=== PATIENT | female | born 1935 | race Caucasian/White ===

== ENCOUNTER 2020-08-27 09:20 | Outpatient (REF) | payer MEDICARE, OTHER, SELFPAY ==
[2020-08-27 11:56] LABS: Estimated Average Glucose 197 mg/dL; Hemoglobin A1c % 8.5 %
[2020-08-27 12:00] LABS: Alanine Aminotransferase 20 U/L (0-31); Anion Gap 15 (12-20); Aspartate Amino Transferase 19 U/L (5-31); Blood Urea Nitrogen 25 mg/dL (9-16); Calcium 9.3 mg/dL (8.4-10.2); Carbon Dioxide 25 mmol/L (22-29); Chloride 99 mmol/L (96-108); Cholesterol 183 mg/dL; Estimated Glomerular Filt Rate 39; Glucose Fasting 239 mg/dL (60-99); HDL Cholesterol 51 mg/dL; LDL Cholesterol Calculated 106 mg/dl; Sodium 134 mmol/L (135-145); Triglycerides 134 mg/dL
== END 2020-08-27 09:21 | disposition home or self-care (01) ==
LOC: HO.HMGCLDS 09:20
PROVIDERS: PCP Internal Medicine; Referring Provider Physician Assistant; Visit Provider Internal Medicine
DX: E78.5 Hyperlipidemia, unspecified (principal); I10 Essential (primary) hypertension; E11.40 Type 2 diabetes mellitus with diabetic neuropathy, unspecified
CPT/HCPCS: 36415; 80048; 80061; 83036; 84450; 84460

== ENCOUNTER 2021-03-12 08:24 | Outpatient (REF) | payer MEDICARE, OTHER, SELFPAY ==
[2021-03-12 11:49] LABS: Estimated Average Glucose 200 mg/dL; Hemoglobin A1c % 8.6 %
[2021-03-12 12:29] LABS: Alanine Aminotransferase 16 U/L (0-31); Anion Gap 21 (12-20); Aspartate Amino Transferase 18 U/L (5-31); Blood Urea Nitrogen 28 mg/dL (9-16); Carbon Dioxide 19 mmol/L (22-29); Chloride 102 mmol/L (96-108); Cholesterol 202 mg/dL; Estimated Glomerular Filt Rate 50; Glucose Fasting 150 mg/dL (60-99); HDL Cholesterol 52 mg/dL; LDL Cholesterol Calculated 114 mg/dl; Potassium 5.3 mmol/L (3.3-5.1); Sodium 137 mmol/L (135-145); Triglycerides 181 mg/dL
[2021-03-12 12:36] LABS: Creatinine Urine 27.31 mg/dL; Microalbum/Creatinine Ratio Ur 494.3 ug/mg cr
[2021-03-12 12:42] LABS: Vitamin D 25-OH Total 24.3 ng/mL (>30)
== END 2021-03-12 08:25 | disposition home or self-care (01) ==
LOC: HO.HMGCLDS 08:24
PROVIDERS: PCP Internal Medicine; Visit Provider Physician Assistant
DX: E11.42 Type 2 diabetes mellitus with diabetic polyneuropathy (principal); E11.40 Type 2 diabetes mellitus with diabetic neuropathy, unspecified; E78.5 Hyperlipidemia, unspecified; I10 Essential (primary) hypertension; E89.40 Asymptomatic postprocedural ovarian failure
CPT/HCPCS: 36415; 80048; 80061; 82043; 82306; 83036; 84450; 84460

== ENCOUNTER 2021-09-05 22:15 | Inpatient (IN) | payer MEDICARE, OTHER, SELFPAY ==
--- NOTE | ~2021-09-05 | CT_ITS ---
EXAMINATION: CT HEAD WITHOUT CONTRAST (STROKE PROTOCOL) CLINICAL INFORMATION: Stroke protocol. Inpatient. Uncontrolled hypertension, dizziness, nausea, vomiting. COMPARISON: None TECHNIQUE: Contiguous axial imaging was performed from the skull base to vertex without intravenous administration of contrast. This CT examination was performed using dose optimization techniques as appropriate, variously including the following: *Automated exposure control *Adjustment of mA and/or kV according to patient size (this includes techniques or standardized protocols for targeted exams where dose is matched to indication/reason for exam; i.e. extremities or head) *Use of iterative reconstruction technique DLP: 653 mGy-cm FINDINGS: There is no intracranial hemorrhage, hematoma, or extra-axial fluid collection. The ventricles are normal in size. There is no hydrocephalus, edema, or mass effect. There is decreased attenuation inferior left cerebellum which may represent acute infarct. No mass effect on fourth ventricle. There is subtle decreased attenuation posterior limb left internal capsule also suspicious for acute infarct. There is a small infarct possibly old involving the posterior medial left occipital lobe. Old appearing lacunar infarct without mass effect noted right anterior limb basal ganglia. There is some scattered mild periventricular white matter gliosis. No visible mass lesion. No focal dense vessel sign. The calvarium appears intact. There is no pneumocephalus or orbital emphysema. There are no air-fluid levels in the sinuses or middle ears or mastoids. Mucosal thickening present left sphenoid. Results are discussed with Dr. Vail, connection made at 08:[address]/CT head for stroke IMPRESSION: 1. Decreased attenuation inferior left cerebellum and posterior left basal ganglia, possibly acute or subacute infarct. 2. 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 3. No intracranial hemorrhage, hydrocephalus, or midline shift.
--- NOTE | ~2021-09-05 | US_ITS ---
EXAMINATION: US ABDOMEN LIMITED CLINICAL INFORMATION: Cholelithiasis, rule out biliary disease. COMPARISON: CT abdomen and pelvis with contrast dated 09/06/2021. TECHNIQUE: Real-time imaging of the right upper quadrant abdominal viscera. FINDINGS: PANCREAS: The visualized pancreatic head and body are unremarkable. The tail is obscured by overlying bowel gas. LIVER: Mildly enlarged. The right hepatic lobe measures up to 20 cm. The liver contour is normal. There is diffuse increased liver parenchymal echogenicity, consistent with hepatic steatosis. No focal hepatic lesion. There is no intrahepatic biliary duct dilatation seen. GALLBLADDER: Mildly dilated. Cholelithiasis without gallbladder wall thickening or pericholecystic free fluid to suggest acute cholecystitis. COMMON BILE DUCT: Normal in caliber measuring 0.48 cm in diameter. RIGHT KIDNEY: Normal. No hydronephrosis. No renal calculi or focal parenchymal lesions. The kidney measures 9.0 cm in maximum dimension. FREE FLUID: None. US/US abdomen limited IMPRESSION: 1. Mild dilatation of the gallbladder with cholelithiasis. No gallbladder wall thickening or pericholecystic free fluid to suggest acute cholecystitis. 2. Hepatic steatosis and mild hepatomegaly. No focal parenchymal lesion or biliary ductal dilatation.
--- NOTE | ~2021-09-05 | CT_ITS ---
EXAMINATION: CT angio head neck CLINICAL INFORMATION: Stroke. Altered mental status. COMPARISON: Brain MRI 09/04/2021. TECHNIQUE: Testing Engineer images were obtained. A CT angiogram of the head and neck was performed in the arterial phase after the intravenous administration of 70 mL Omnipaque 350. Delayed postcontrast images of the head were also obtained. MIP reconstructions were generated in multiple orientations at the acquisition workstation. Multiple three-dimensional surface rendered images and maximum intensity projection images were generated on a dedicated 3-D lab workstation. Arterial stenoses are measured in accordance with NASCET criteria or similar method if applicable. This CT examination was performed using dose optimization techniques as appropriate, including one or more of the following: Automated exposure control, iterative reconstruction, and adjustment of technique factors (mA and/or kVp) according to patient size (this includes techniques or standardized protocols for targeted exams where dose is matched to indication/reason for exam). Total exam dose-length product 1384 mGy-cm FINDINGS: Head: Delayed postcontrast images reveal no abnormal mass or enhancement within the intracranial compartment. Again there is an acute infarct within the left cerebellar hemisphere and a tiny chronic cortical infarct within the left occipital lobe. Scattered nonspecific foci of hypoattenuation are also visualized within the periventricular white matter that most likely represent a chronic manifestation of small vessel ischemia. There is no intracranial mass effect or midline shift. No abnormal extra-axial collection. Lateral and third ventricles are normal. No hydrocephalus. The calvarium and skull base are intact. Mastoid air cells and middle ear cavities are well aerated. 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 CT angiogram neck: The aortic arch apex is normal. There is eccentric predominantly lipid-laden atheromatous plaque involving the left subclavian artery causing 50% stenosis of the lumen. The left vertebral artery appears occluded at its origin and there is poor contrast filling the V2, V3, and V4 segments of the left vertebral artery. The right vertebral artery is widely patent. Common carotid arteries are patent. There is partially calcified predominantly lipid-laden atheromatous plaque at both carotid bifurcations causing 60% stenosis at the origin of the left internal carotid artery and 50% stenosis at the origin of the right internal carotid artery. CT angiogram head: Intracranial internal carotid arteries are patent. The right intradural vertebral artery is patent and continues as the basilar. There is poor contrast filling the proximal portion of the left posterior inferior cerebellar artery. Anterior, middle, and posterior cerebral artery complexes are unremarkable. Other: Soft tissues of the neck including the thyroid gland are normal. Visualized lung apices are clear. No acute osseous finding. Specifically no worrisome lytic or blastic osseous lesion. CT/CT angio head neck IMPRESSION: There is eccentric predominantly lipid-laden atheromatous plaque involving the left subclavian artery causing 50% stenosis of the lumen. The left vertebral artery appears occluded at its origin with relatively poor contrast filling the V2, V3, and V4 segments of the left vertebral artery. There is also partially calcified predominantly lipid-laden atheromatous plaque at both carotid bifurcations. 60% stenosis at the origin of left internal carotid artery at 50% stenosis at the origin of the right internal carotid artery. Again there is an acute infarct within the left cerebellar hemisphere. A tiny chronic infarct within the left occipital lobe is noted and there are scattered chronic small vessel ischemic changes within the periventricular white matter. No abnormal intracranial mass or enhancement.
--- NOTE | ~2021-09-05 | MR_ITS ---
MRI OF THE BRAIN WITHOUT IV CONTRAST INDICATION: Acute stroke. COMPARISON: Head CT 09/06/2021 TECHNIQUE: Multiplanar multisequence MR imaging of the brain was obtained without IV contrast. FINDINGS: There is an acute infarct within the PICA territory of the inferior left cerebellar hemisphere. No additional acute infarcts intracranially. Cytotoxic edema results in mild local mass effect on the left cerebellum without fourth ventricular effacement. There is no hydrocephalus, extra-axial surface collection, or herniation. Loss of the distal cervical and proximal intradural left vertebral artery flow void suggesting slow flow within versus occlusion of this vessel. Mild background chronic microangiopathy. Local cerebral volume loss. There is no intracranial hemorrhage on the gradient recalled echo acquisition. The midline structures are normal. The cerebellar tonsils are normally positioned. The craniocervical junction is normal. Osseous marrow signal intensity is homogenous. The visualized soft tissues are unremarkable. MR/MR head/brain wo con IMPRESSION: There is an acute infarct within the PICA territory of the inferior left cerebellar hemisphere associated with mild local mass effect and no hemorrhagic transformation. No significant fourth ventricular effacement at this time. - Loss of the distal cervical and proximal intradural left vertebral artery flow void suggesting slow flow within versus occlusion of this vessel.
--- NOTE | ~2021-09-05 | XR_ITS ---
EXAMINATION: XR CHEST CLINICAL INFORMATION: Abdominal pain. COMPARISON: Chest radiograph dated from 02/21/2019. TECHNIQUE: AP view of the chest was obtained. FINDINGS: Unchanged cardiomediastinal silhouette. Clear lungs. No pleural effusion or pneumothorax. No acute osseous findings. XR/XR chest 1V IMPRESSION: No acute cardiopulmonary findings.
--- NOTE | ~2021-09-05 | CT_ITS ---
EXAMINATION: CT ABDOMEN AND PELVIS WITH CONTRAST CLINICAL INFORMATION: Abdominal pain COMPARISON: 02/21/2019 TECHNIQUE: Multidetector volumetric images were obtained from the superior aspect of the liver through the pubic symphysis following administration 85 mL of Omnipaque 350 intravenous contrast. Sagittal and coronal reformatted images were obtained on the technologist's workstation. Oral contrast: No This CT examination was performed using dose optimization techniques as appropriate, variously including the following: *Automated exposure control *Adjustment of mA and/or kV according to patient size (this includes techniques or standardized protocols for targeted exams where dose is matched to indication/reason for exam; i.e. extremities or head) *Use of iterative reconstruction technique DLP: 622 mGy-cm FINDINGS: LUNG BASES: Stable 4 mm pleural or subpleural nodule within left lower lobe, benign. LIVER, GALLBLADDER, AND BILIARY TREE: The liver is normal in size, shape, and attenuation. No focal hepatic lesion or biliary ductal dilatation is present. Cholelithiasis. No pericholecystic fluid or inflammation. PANCREAS: Unremarkable. SPLEEN: Unremarkable. ADRENAL GLANDS: Unremarkable. KIDNEYS AND URETERS: The kidneys are normal in size, shape, and attenuation. No hydronephrosis, hydroureter, or calculi seen. No perinephric stranding. BLADDER: Moderately distended. No perivesicular fat stranding. GASTROINTESTINAL TRACT: The small and large bowel are unremarkable. The appendix is unremarkable. ABDOMINAL WALL: No significant hernia is appreciated. LYMPH NODES: Normal. VASCULAR: Aorta is atherosclerotic but normal caliber. Patent venous structures. PELVIC VISCERA: Hysterectomy. No adnexal abnormalities. OSSEOUS STRUCTURES: No acute or suspicious osseous or maladies. CT/CT abdomen pelvis w con IMPRESSION: * No acute findings within the abdomen or pelvis * Cholelithiasis. If there is concern for cholecystitis, recommend right upper quadrant ultrasound. * Moderate distention of the bladder with trace nondependent gas. This could relate to previous catheterization. No wall thickening or perivascular fat stranding to suggest cystitis.
[2021-09-05 22:26] VITALS: BP 154/126; BP 240/113; PULSE 108; PULSE 115; RESP 18; TEMP 36.7; O2SAT 97; O2SAT 98; BMI 30.9
--- NOTE | 2021-09-05 22:37 | ED_ITS ---
HPI - Abdominal Pain General Chief Complaint: Dizziness Stated Complaint: HYPERTENTION NAUSEA VOMITING Time Seen by Provider: 09/05/21 22:28 Source: patient Mode of arrival: EMS History of Present Illness HPI narrative: This is an 86-year-old female with history of hypertension and diabetes as well as intra-abdominal surgery who presents via EMS after 2 days of no bowel movement and increasing bloating, however she states she is continue to pass flatus and denies any urinary pain/burning/frequency. Patient states that things worsened significantly at approximately 8:30 p.m. this evening with dizziness/lightheadedness with associated nausea and multiple episodes of vomiting but otherwise denies any fever, chills, shortness of breath, chest pain/palpitations. Related Data Home Medications Medication Instructions Recorded Confirmed blood sugar diagnostic #10 ea 02/13/21 02/13/21 glipizide 5 mg tablet, extended 5 mg PO BID 02/13/21 02/13/21 release 24 hr insulin aspar prot-insulin aspart ml SUBCUT 02/13/21 02/13/21 100 unit/mL (70-30) subcutaneous pen metformin 500 mg tablet,extended 1,000 mg PO 02/13/21 02/13/21 release 24 hr Previous Rx's Medication Instructions Recorded lisinopril 2.5 mg tablet 2.5 mg PO DAILY #90 tab 10/08/20 ezetimibe 10 mg tablet 10 mg PO DAILY #90 tab 04/10/21 cholecalciferol (vitamin D3) 1,250 1,250 mcg PO QWEEK 90 Days #13 cap 06/03/21 mcg (50,000 unit) capsule dicyclomine 20 mg tablet 20 mg PO TID #270 tab 06/18/21 Allergies Allergy/AdvReac Type Severity Reaction Status Date / Time No Known Allergies Allergy Verified 08/21/21 23:18 [No Known Allergies*] lovastatin AdvReac Unknown muscle pain Verified 08/21/21 23:18 Review of Systems Review of Systems Pertinent positives and negatives as stated in HPI 10 point review of systems is otherwise negative. Physical Exam Vital Signs: Vital Signs: Last Vital Signs Temp 98.0 F 09/05/21 22:26 Pulse 90 09/06/21 00:06 Resp 21 H 09/06/21 00:06 BP 165/68 H 09/06/21 00:06 Pulse Ox 96 09/06/21 00:06 Body Mass Index 30.9 VITAL SIGNS: Reviewed. GENERAL: Well developed, well nourished, in no acute distress. HEAD: Normocephalic/atraumatic EYES: PERRLA, EOMI intact without pain, no nystagmus EARS: Ext canals without abnormality NOSE: Nares patent bilateral OROPHARYNX: no oral lesions noted, posterior pharynx clear NECK: Supple, no adenopathy LUNGS: Normal breath sounds. SpO2<97> CARDIOVASCULAR: Regular rate and rhythm without noted murmurs, no JVD or lower extremity edema. ABDOMEN: Obese, Soft, diffuse tenderness without rebound, distended with hypoactive bowel sounds. SKIN: Inspection of the skin reveals no rashes NEUROLOGIC: Alert and oriented x 4. Strength and sensation to light touch were grossly intact x 4, no facial asymmetry, no pronator drift, cranial nerves 2-12 grossly intact. Course Course Course Narrative: This is an 86-year-old female with history and clinical presentation most consistent with likely SBO, partial versus complete and less likely diverticulitis, possibly UTI but less likely. Although patient has had dizziness low clinical suspicion for neurologic etiology as patient is currently nonfocal and suspect that this was a secondary symptom due to abdominal discomfort. Review of all investigations consistent with sepsis, pyelonephritis, nausea, urinary tension despite findings of cholelithiasis on CT scan. I discussed this case with the inpatient hospitalist who accepts admission. MDM - Abdominal Pain Lab Data Result diagrams: 09/05/21 22:48 09/05/21 22:48 Labs: Lab Results 09/05/21 09/05/21 09/05/21 Range/Units 22:47 22:48 22:48 WBC 14.5 H (4.8-10.8) X10*3/uL RBC 4.57 (4.20-5.50) X10*6/uL Hgb 13.0 (12.0-16.0) g/dl Hct 38.3 (37-47) % MCV 83.8 (80-98) fL MCH 28.4 (27.0-33.0) pg MCHC 33.9 (31.0-35.0) g/dl RDW 13.6 (11.0-16.0) % Plt Count 344 (160-400) X10*3/uL MPV 10.8 (9.4-12.3) fL Immature Gran % (Auto) 0.4 (0.0-0.4) % Neut % (Auto) 65.7 (45-73) % Lymph % (Auto) 21.3 (20-40) % [place] % (Auto) 10.5 (2-11) % Eos % (Auto) 1.5 (0-4) % Baso % (Auto) 0.6 (0-2) % Lymph # (Auto) 3.1 (1.2-4.9) X10*3/uL [place] # (Auto) 1.5 H (0.1-1.2) X10*3/uL Eos # (Auto) 0.2 (0.0-0.4) X10*3/uL Baso # (Auto) 0.1 (0.0-0.2) X10*3/uL Abs Immat Gran (auto) 0.06 H (0.00-0.03) X10*3/uL Absolute Neuts (auto) 9.6 H (2.0-8.3) X10*3/uL Absolute Nucleated RBC 0.000 (0.0-0.012) X10*3/uL Nucleated RBC % (auto) 0.0 (0.0-0.2) /100WBC Smear Tech's Comments VERIFIED Sodium 133 L (135-145) mmol/L Potassium 4.5 (3.3-5.1) mmol/L Chloride 95 L (96-108) mmol/L Carbon Dioxide 25 (22-29) mmol/L Anion Gap 18 (12-20) BUN 21 H (9-16) mg/dL Creatinine 1.24 (0.5-1.4) mg/dL Estim Creat Clear Calc 33.1 Estimated GFR 41 Random Glucose 299 H (60-115) mg/dL Lactic Acid 3.2 H* (0.5-2.0) mmol/L Calcium 10.3 H D (8.4-10.2) mg/dL Total Bilirubin 0.2 (0.0-1.0) mg/dL AST 16 (5-31) U/L ALT 16 (0-31) U/L Alkaline Phosphatase 71 (39-117) U/L Total Protein 8.4 H (6.5-8.0) g/dL Albumin 4.9 (3.5-5.0) g/dL Urine Color Urine Appearance Urine pH (5.0-8.0) Ur Specific [place] (1.005-1.025) Urine Protein (NEG-TRACE) MG/DL Urine Glucose (UA) (NEG) MG/DL Urine Ketones (NEG) MG/DL Urine Blood (NEG) Urine Nitrite (NEG) Ur Leukocyte Esterase (NEG) Urine RBC (0) /HPF Urine WBC (0-4) /HPF Ur Squamous Epith Cells /LPF Urine Bacteria /LPF Coronavirus (PCR) (Negative) Influenza Type A (PCR) (Negative) Influenza Type B (PCR) (Negative) RSV RNA Qual (PCR) (Negative) 09/05/21 09/05/21 Range/Units 22:48 23:19 WBC (4.8-10.8) X10*3/uL RBC (4.20-5.50) X10*6/uL Hgb (12.0-16.0) g/dl Hct (37-47) % MCV (80-98) fL MCH (27.0-33.0) pg MCHC (31.0-35.0) g/dl RDW (11.0-16.0) % Plt Count (160-400) X10*3/uL MPV (9.4-12.3) fL Immature Gran % (Auto) (0.0-0.4) % Neut % (Auto) (45-73) % Lymph % (Auto) (20-40) % [place] % (Auto) (2-11) % Eos % (Auto) (0-4) % Baso % (Auto) (0-2) % Lymph # (Auto) (1.2-4.9) X10*3/uL [place] # (Auto) (0.1-1.2) X10*3/uL Eos # (Auto) (0.0-0.4) X10*3/uL Baso # (Auto) (0.0-0.2) X10*3/uL Abs Immat Gran (auto) (0.00-0.03) X10*3/uL Absolute Neuts (auto) (2.0-8.3) X10*3/uL Absolute Nucleated RBC (0.0-0.012) X10*3/uL Nucleated RBC % (auto) (0.0-0.2) /100WBC Smear Tech's Comments Sodium (135-145) mmol/L Potassium (3.3-5.1) mmol/L Chloride (96-108) mmol/L Carbon Dioxide (22-29) mmol/L Anion Gap (12-20) BUN (9-16) mg/dL Creatinine (0.5-1.4) mg/dL Estim Creat Clear Calc Estimated GFR Random Glucose (60-115) mg/dL Lactic Acid (0.5-2.0) mmol/L Calcium (8.4-10.2) mg/dL Total Bilirubin (0.0-1.0) mg/dL AST (5-31) U/L ALT (0-31) U/L Alkaline Phosphatase (39-117) U/L Total Protein (6.5-8.0) g/dL Albumin (3.5-5.0) g/dL Urine Color YELLOW Urine Appearance CLEAR Urine pH 6.5 (5.0-8.0) Ur Specific [place] 1.010 (1.005-1.025) Urine Protein 2+ H (NEG-TRACE) MG/DL Urine Glucose (UA) >=1000 H (NEG) MG/DL Urine Ketones NEG (NEG) MG/DL Urine Blood TRACE (NEG) Urine Nitrite POS H (NEG) Ur Leukocyte Esterase 1+ H (NEG) Urine RBC 0-2 (0) /HPF Urine WBC 5-9 H (0-4) /HPF Ur Squamous Epith Cells TRACE /LPF Urine Bacteria 1+ /LPF Coronavirus (PCR) NEGATIVE (Negative) Influenza Type A (PCR) NEGATIVE (Negative) Influenza Type B (PCR) NEGATIVE (Negative) RSV RNA Qual (PCR) NEGATIVE (Negative) ECG Data Attestation: I personally reviewed and interpreted this ECG as follows: Prior ECG tracings: not available for review Interpretation: Sinus tachycardia, HR-107, no STEMI, WI/QRS/QTC are within normal limits. 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
[2021-09-05 22:55] LABS: Basophils Absolute Auto 0.1 X10*3/uL (0.0-0.2); Basophils Percent Auto 0.6 % (0-2); Eosinophils Absolute Auto 0.2 X10*3/uL (0.0-0.4); Eosinophils Percent Auto 1.5 % (0-4); Hematocrit 38.3 % (37-47); Imm Gran Abs Auto 0.06 X10*3/uL (0.00-0.03); Imm Gran Pct Auto 0.4 % (0.0-0.4); Lymphocytes Absolute Auto 3.1 X10*3/uL (1.2-4.9); Lymphocytes Percent Auto 21.3 % (20-40); MANUAL DIFF FLAG SCAN; Mean Corpuscular HGB Conc 33.9 g/dl (31.0-35.0); Mean Corpuscular Hemoglobin 28.4 pg (27.0-33.0); Mean Corpuscular Volume 83.8 fL (80-98); Mean Platelet Volume 10.8 fL (9.4-12.3); Monocytes Absolute Auto 1.5 X10*3/uL (0.1-1.2); Monocytes Percent Auto 10.5 % (2-11); Neutrophils Absolute Auto 9.6 X10*3/uL (2.0-8.3); Neutrophils Percent Auto 65.7 % (45-73); Platelet Count 344 X10*3/uL (160-400); Red Blood Count 4.57 X10*6/uL (4.20-5.50); Red Cell Distribution Width 13.6 % (11.0-16.0); SCAN SMEAR FLAG 1; White Blood Count 14.5 X10*3/uL (4.8-10.8)
[2021-09-05 23:08] VITALS: BP 205/99; PULSE 103; RESP 16; O2SAT 96
[2021-09-05 23:10] LABS: Lactic Acid 3.2 mmol/L (0.5-2.0)
[2021-09-05 23:12] LABS: SLIDE REVIEW VERIFIED
[2021-09-05 23:14] LABS: Alanine Aminotransferase 16 U/L (0-31); Albumin Level 4.9 g/dL (3.5-5.0); Alkaline Phosphatase 71 U/L (39-117); Anion Gap 18 (12-20); Aspartate Amino Transferase 16 U/L (5-31); Bilirubin Total 0.2 mg/dL (0.0-1.0); Blood Urea Nitrogen 21 mg/dL (9-16); Calcium 10.3 mg/dL (8.4-10.2); Carbon Dioxide 25 mmol/L (22-29); Chloride 95 mmol/L (96-108); Creatinine Clr Calc Pharmacy 33.1; Estimated Glomerular Filt Rate 41; Glucose Random 299 mg/dL (60-115); Potassium 4.5 mmol/L (3.3-5.1); Sodium 133 mmol/L (135-145); Total Protein 8.4 g/dL (6.5-8.0)
[2021-09-05 23:30] LABS: Appearance Urine CLEAR; Color Urine YELLOW; Glucose Urine UA >=1000 MG/DL (NEG); Leukocyte Esterase Urine 1+ (NEG); Nitrite Urine POS (NEG); PH 6.5 (5.0-8.0); UACC Culture Trigger YES; Urine Blood TRACE (NEG); Urine Ketones NEG (NEG); Urine Protein 2+ MG/DL (NEG-TRACE)
[2021-09-05 23:32] LABS: Influenza A PCR NEGATIVE (Negative); Influenza B PCR NEGATIVE (Negative); Resp Syncy Virus RNA Qual PCR NEGATIVE (Negative); SARS COV2 PCR INHOUSE NEGATIVE (Negative)
[2021-09-05 23:34] VITALS: BP 243/99; PULSE 106
[2021-09-05] MEDS: Labetalol HCL 100 MG/20 ML VIAL IVPUSH (23:34)
[2021-09-05] MEDS: Piperacillin Sodium/Tazobactam 3.375 GM in 0.9 % Sodium Chloride 50 ML IV (23:38)
[2021-09-05] MEDS: 0.9 % Sodium Chloride 2,000 ML 999 ML IV (23:39)
[2021-09-05 23:43] LABS: Bacteria Urine 1+ /LPF; RBC Urine 0-2 /HPF (0); Squamous Epithelial Cell Urine TRACE /LPF
[2021-09-06] VITALS (14 sets, daily range): BP systolic 121–205; BP diastolic 32–82; PULSE 77–105; RESP 14–21; TEMP 36.6–36.8; O2SAT 95–99
[2021-09-06 00:52] LABS: Reflex Lactate? Lactic Acid Added
[2021-09-06] MEDS: iohexoL 350 MG/ML 100 ML INFUS..BTL 85 ML IV (01:18)
[2021-09-06] MEDS: fentaNYL citrate/PF 100 MCG/2 ML VIAL 25 MCG IVPUSH (01:43)
[2021-09-06] MEDS: ondansetron HCL 4 MG/2 ML VIAL IVPUSH ×2 (01:44→22:39)
--- NOTE | 2021-09-06 02:33 | P.HPHOSP_ITS ---
History of Present Illness Date of Service: 09/06/21 Chief Complaint: Abd discomfort 86-year-old female with a past medical history of hypertension, diabetes, interval bowel syndrome, history of UTI presented to the hospital with a chief complaint of abdominal discomfort. Patient reports that over the past few days she has been having abdominal discomfort associated nausea and vomiting. Denies any chest pain palpitations. Denies any aggravating or alleviating factors abdominal discomfort; denies any change in her appetite. Denies any blood in the vomiting. Mentioned that when she checked her blood pressure at home it was elevated. Complained of feeling lightheadedness. Denies any fever chills cough. Review of all other systems is negative except mentioned above ER course: Per ER team patient noted to have mild diffuse abdominal tenderness; CT scan showed no acute intra-abdominal pathology but noted to have this done by a nerve; urinalysis was abnormal consistent with UTI. Given antibiotics. Patient was also noted to have urine retention up to 800 cc on bladder scan; subsequently Barajas catheter was placed and patient about 100 cc of urine. [facility] Medical History Dyslipidemia Essential hypertension Surgical menopause Type 2 diabetes mellitus with peripheral neuropathy Vitamin D deficiency Pertinent family history: reviewed Surgical History History of appendectomy Hx of cataract surgery S/P partial hysterectomy Social History Alcohol intake: never Patient Tobacco Use Status: Never used Tobacco Use of substances other than those prescribed or required for medical reasons: No Advance Directives: No Advance Directives Information Provided: Yes Meds Allergies Allergy/AdvReac Type Severity Reaction Status Date / Time No Known Allergies Allergy Verified 08/21/21 23:18 [No Known Allergies*] lovastatin AdvReac Unknown muscle pain Verified 08/21/21 23:18 Home Medications Medication Instructions Recorded Confirmed Last Taken Type blood sugar diagnostic #10 ea 02/13/21 02/13/21 Unknown History glipizide 5 mg tablet, extended 5 mg PO BID 02/13/21 02/13/21 Unknown History release 24 hr insulin aspar prot-insulin aspart ml SUBCUT 02/13/21 02/13/21 Unknown History 100 unit/mL (70-30) subcutaneous pen metformin 500 mg tablet,extended 1,000 mg PO 02/13/21 02/13/21 Unknown History release 24 hr Physical Exam Vital Signs and Narrative: Vital Signs: Last Vital Signs Temp 98.0 F 09/05/21 22:26 Pulse 90 09/06/21 00:06 Resp 21 H 09/06/21 00:06 BP 165/68 H 09/06/21 00:06 Pulse Ox 96 09/06/21 00:06 Body Mass Index 30.9 Gen: Appears be in no acute distress HEENT: NCAT, Moist mucosa. Pulmonary: Vesicular breath sounds, fair air entry CVS: Normal S1-S2 Abdomen: BS+, Soft, mildly tender diffusely Extremities: Warm well perfused Neuro: Alert and awake. Results Labs CBC and Chem 7: 09/05/21 22:48 09/05/21 22:48 Labs: Laboratory Results - last 24 hr 09/05/21 09/05/21 09/05/21 22:47 22:48 22:48 MCV 83.8 MCH 28.4 MCHC 33.9 RDW 13.6 Plt Count 344 MPV 10.8 Immature Gran % (Auto) 0.4 Neut % (Auto) 65.7 Lymph % (Auto) 21.3 [place] % (Auto) 10.5 Eos % (Auto) 1.5 Baso % (Auto) 0.6 Lymph # (Auto) 3.1 [place] # (Auto) 1.5 H Eos # (Auto) 0.2 Baso # (Auto) 0.1 Abs Immat Gran (auto) 0.06 H Absolute Neuts (auto) 9.6 H Absolute Nucleated RBC 0.000 Nucleated RBC % (auto) 0.0 Smear Tech's Comments VERIFIED Anion Gap 18 Estim Creat Clear Calc 33.1 Estimated GFR 41 Random Glucose 299 H Lactic Acid 3.2 H* Calcium 10.3 H D Total Bilirubin 0.2 AST 16 ALT 16 Alkaline Phosphatase 71 Total Protein 8.4 H Albumin 4.9 Urine Color Urine Appearance Urine pH Ur Specific [place] Urine Protein Urine Glucose (UA) Urine Ketones Urine Blood Urine Nitrite Ur Leukocyte Esterase Urine RBC Urine WBC Ur Squamous Epith Cells Urine Bacteria Coronavirus (PCR) Influenza Type A (PCR) Influenza Type B (PCR) RSV RNA Qual (PCR) 09/05/21 09/05/21 22:48 23:19 MCV MCH MCHC RDW Plt Count MPV Immature Gran % (Auto) Neut % (Auto) Lymph % (Auto) [place] % (Auto) Eos % (Auto) Baso % (Auto) Lymph # (Auto) [place] # (Auto) Eos # (Auto) Baso # (Auto) Abs Immat Gran (auto) Absolute Neuts (auto) Absolute Nucleated RBC Nucleated RBC % (auto) Smear Tech's Comments Anion Gap Estim Creat Clear Calc Estimated GFR Random Glucose Lactic Acid Calcium Total Bilirubin AST ALT Alkaline Phosphatase Total Protein Albumin Urine Color YELLOW Urine Appearance CLEAR Urine pH 6.5 Ur Specific [place] 1.010 Urine Protein 2+ H Urine Glucose (UA) >=1000 H Urine Ketones NEG Urine Blood TRACE Urine Nitrite POS H Ur Leukocyte Esterase 1+ H Urine RBC 0-2 Urine WBC 5-9 H Ur Squamous Epith Cells TRACE Urine Bacteria 1+ Coronavirus (PCR) NEGATIVE Influenza Type A (PCR) NEGATIVE Influenza Type B (PCR) NEGATIVE RSV RNA Qual (PCR) NEGATIVE Imaging Radiologist's Impressions: Impressions Chest X-Ray 09/05/21 23:12 IMPRESSION: No acute cardiopulmonary findings. Abdomen/Pelvis CT 09/06/21 00:00 IMPRESSION: * No acute findings within the abdomen or pelvis * Cholelithiasis. If there is concern for cholecystitis, recommend right upper quadrant ultrasound. * Moderate distention of the bladder with trace nondependent gas. This could relate to previous catheterization. No wall thickening or perivascular fat stranding to suggest cystitis. Assessment and Plan (1) Urinary retention: Status: Acute (2) UTI (urinary tract infection): Status: Acute (3) Type 2 diabetes mellitus with peripheral neuropathy: Status: Acute (4) Essential hypertension: Status: Acute 86-year-old female with a past medical history of hypertension, diabetes, irritable bowel syndrome presented to the hospital with a chief complaint of abdominal discomfort/nausea/vomiting; noted to have urinary retention/UTI. Admitted for further management. UTI: Continue ceftriaxone. Follow up cultures. Urinary retention: Patient had tolerated cc of urine after Barajas catheter placement. Urology consult. Hypertensive urgency: Patient denies any headachesor blurry vision. exam nonfocal. Patient received labetalol in the ER with improvement in blood pressure to 1 65/68. Patient's creatinine slightly elevated than baseline. Will hold home lisinopril for now. Diabetes: Insulin sliding scale. Hold oral hypoglycemic agents. DVT prophylaxis: SCD boots Code status: Full code Quality Stroke Does the patient have a stroke diagnosis?: No VTE Prior VTE?: No VTE Risk Level:: Medical - moderate - high VTE Device Contraindication: N/A - Device Ordered VTE Drug Contraindication: Treatment Not Indicated
[2021-09-06 04:01] LABS: ~Lactic Acid-LAB USE ONLY 2.2 mmol/L (0.5-2.0)
[2021-09-06] MEDS: 0.9 % Sodium Chloride 1,000 ML 50 ML IVCONT (04:19)
[2021-09-06] MEDS: cefTRIAXone sodium 1 GM in 0.9 % Sodium Chloride 50 ML IV ×2 (04:19→20:48)
[2021-09-06 05:36] LABS: Reflex Lactate? 2 Y
[2021-09-06 06:57] LABS: Basophils Absolute Auto 0.1 X10*3/uL (0.0-0.2); Basophils Percent Auto 0.6 % (0-2); Eosinophils Percent Auto 0.1 % (0-4); Hematocrit 33.8 % (37-47); Hemoglobin 11.4 g/dl (12.0-16.0); Imm Gran Abs Auto 0.05 X10*3/uL (0.00-0.03); Imm Gran Pct Auto 0.4 % (0.0-0.4); Lymphocytes Absolute Auto 1.9 X10*3/uL (1.2-4.9); Lymphocytes Percent Auto 15.6 % (20-40); MANUAL DIFF FLAG NO; Mean Corpuscular HGB Conc 33.7 g/dl (31.0-35.0); Mean Corpuscular Hemoglobin 28.4 pg (27.0-33.0); Mean Corpuscular Volume 84.1 fL (80-98); Mean Platelet Volume 10.8 fL (9.4-12.3); Monocytes Absolute Auto 1.3 X10*3/uL (0.1-1.2); Monocytes Percent Auto 10.6 % (2-11); Neutrophils Percent Auto 72.7 % (45-73); Platelet Count 295 X10*3/uL (160-400); Red Blood Count 4.02 X10*6/uL (4.20-5.50); Red Cell Distribution Width 13.7 % (11.0-16.0); White Blood Count 12.4 X10*3/uL (4.8-10.8)
[2021-09-06 07:17] LABS: Anion Gap 16 (12-20); Blood Urea Nitrogen 17 mg/dL (9-16); Calcium 8.7 mg/dL (8.4-10.2); Carbon Dioxide 22 mmol/L (22-29); Chloride 100 mmol/L (96-108); Creatinine Clr Calc Pharmacy 39.4; Estimated Glomerular Filt Rate 50; Glucose Random 279 mg/dL (60-115); Potassium 4.4 mmol/L (3.3-5.1); Sodium 134 mmol/L (135-145)
[2021-09-06 07:20] LABS: ~Lactic Acid-LAB USE ONLY 3.1 mmol/L (0.5-2.0)
--- NOTE | 2021-09-06 07:26 | PC.NURSE ---
pt resting in the stretcher, respirations even and unlabored, pt reports upper abd pain 8/10, dr linder tigered about the pt bp 205/82 and lactic rising again, denies dizziness at this time 1000ml pale yellow urine emptied from the gage
[2021-09-06 07:37] LABS: Glucose, Whole Blood 261 mg/dL (60-115)
[2021-09-06] MEDS: Insulin Lispro 100 UNIT/ML 3 ML VIAL SUBCUT ×2 (07:42→21:02)
[2021-09-06] MEDS: Morphine Sulfate 2 MG/ML CARTRIDGE IVPUSH (07:45)
[2021-09-06] MEDS: Labetalol HCL 100 MG/20 ML VIAL 10 MG IVPUSH (07:55)
[2021-09-06] MEDS: amLODIPine Besylate 2.5 MG TABLET PO (07:57)
--- NOTE | 2021-09-06 07:58 | PC.NURSE ---
Addendum entered by Jessica Werner 09/06/21 09:51: no visible facial droop, no visible hand drift, very slight weakness noticed on the right hand grasp Original Note: pt is now reporting that when she lifts her head of the pillow starts feeling dizzy, like swaying on the boat
--- NOTE | 2021-09-06 08:29 | PHA.MEDREC ---
Pharmacy Consult ? Medication Reconciliation Pharmacy has completed the medication reconciliation. Reports using an insulin pen, however the is no record on the claim history. Rose Velasquez, LeslyeD
--- NOTE | 2021-09-06 10:15 | PC.NURSE ---
Pt to MRi and back to ED at this time via stretcher, fully monitored, with one RN and transport. She remained fully monitored while in MRI without incident. On return to ED she is drowsy but alert and oriented x 3, has c/o better abdominal pain (3-4/10), no PLUMMER or dizziness, no chest pain or SOB. Awaiting MRI result. Will continue to monitor.
--- NOTE | 2021-09-06 11:21 | PM.NEUROCN ---
History of Present Illness Data of Consult Service Date: 09/06/21 Primary Care Provider: Unknown Physician HPI Reason for consult: Stroke 86 years old woman with underlying history of hypertension I was asked to see for stroke. She said that she was in usual state of health sitting when suddenly she became very dizzy. She tried to get up and thought she was going to fall. She became nauseous like she was going to throw up and developed abdominal discomfort. She called her daughter and blood pressure was taken that was quite high and she came to emergency room. In emergency room her main complaint apparently was abdominal pain. She was noted to have significant amount of urinary retention, her blood pressure was quite high with systolic 205, and the urine was suggestive of infection. At that time diagnosis of stroke was not under consideration. A CT scan of brain was later done that revealed a left cerebellar hypodensity suggestive of a stroke prompting this consultation. When I saw her she was feeling much better with no active symptoms at that time. Review of Systems Review of Systems: As reported in HPI per [facility] Past Medical History Medical History Dyslipidemia Essential hypertension Surgical menopause Type 2 diabetes mellitus with peripheral neuropathy Vitamin D deficiency Surgical History Surgical History History of appendectomy Hx of cataract surgery S/P partial hysterectomy Social History Social History Alcohol intake: never Patient Tobacco Use Status: Never used Tobacco Use of substances other than those prescribed or required for medical reasons: No Advance Directives: No Advance Directives Information Provided: Yes Meds Allergies Allergy/AdvReac Type Severity Reaction Status Date / Time No Known Allergies Allergy Verified 08/21/21 23:18 [No Known Allergies*] lovastatin AdvReac Unknown muscle pain Verified 08/21/21 23:18 Active Medications: Current Medications Amlodipine Besylate (Amlodipine Besylate 2.5 Mg Tablet) 2.5 mg PO DAILY [facility]; Protocol Last Admin: 09/06/21 07:57 Dose: 2.5 mg Documented by: Dextrose (Dextrose 50 % 25 Gm/50 Ml Vial) 25 gm IVPUSH Q15M PRN; Protocol PRN Reason: per Hypoglycemia Standing Ord. Glucose (Glucose Gel 15 Gm Gel..Gram.) 15 gm PO Q15M PRN; Protocol PRN Reason: per Hypoglycemia Standing Ord. Sodium Chloride (Ns) 1,000 mls @ 50 mls/hr IVCONT .Q20H [facility] Last Admin: 09/06/21 04:19 Dose: 50 mls/hr Documented by: Ceftriaxone Sodium 1 gm/ (Sodium Chloride) 50 mls @ 100 mls/hr IV Q24H [facility] Insulin Human Lispro (Insulin Lispro 100 Unit/Ml 3 Ml Vial) 0 unit SUBCUT QIDACHS [facility]; Protocol Last Admin: 09/06/21 11:20 Dose: Not Given Documented by: Melatonin (Melatonin 3 Mg Tablet) 6 mg PO BEDTIME PRN PRN Reason: Insomnia Morphine Sulfate (Morphine Sulfate 2 Mg/Ml Cartridge) 2 mg IVPUSH Q4H PRN; Protocol PRN Reason: Pain, Severe (Pain Scale 7-10) Last Admin: 09/06/21 07:45 Dose: 2 mg Documented by: Senna (Sennosides 8.6 Mg Tablet) 17.2 mg PO BEDTIME PRN PRN Reason: Constipation Sodium Chloride (0.9 % Sodium Chloride Flush 3 Ml Syringe) 3 ml IVFLUSH QSHIFT [facility] Last Admin: 09/06/21 11:13 Dose: Not Given Documented by: Home Medications Medication Instructions Recorded Confirmed Last Taken Type blood sugar diagnostic #10 ea 02/13/21 02/13/21 Unknown History glipizide 5 mg tablet, extended 5 mg PO BID 02/13/21 09/06/21 09/05/21 History release 24 hr insulin aspar prot-insulin aspart 20 unit SUBCUT DAILY 02/13/21 09/06/21 Unknown History 100 unit/mL (70-30) subcutaneous pen metformin 500 mg tablet,extended 1,000 mg PO BID 02/13/21 09/06/21 09/05/21 History release 24 hr Co Q-10 1 tab PO DAILY 09/06/21 09/06/21 09/05/21 History cholecalciferol (vitamin D3) 25 25 mcg PO DAILY 09/06/21 09/06/21 09/05/21 History mcg (1,000 unit) tablet (Vitamin D3) Physical Exam Vital Signs: Vital Signs: Last Vital Signs Temp 98 F 09/06/21 11:14 Pulse 85 09/06/21 11:14 Resp 18 09/06/21 11:14 BP 121/32 L 09/06/21 11:14 Pulse Ox 98 09/06/21 11:14 Body Mass Index 30.9 Neuro: Other: She was alert and awake with normal spontaneity of speech fluency comprehension and affect. She was not in any distress. Speech was normal. Pupils were equal and reactive to light and extraocular muscles were intact. Visual hill are full to threat. Face was symmetrical. Tongue was midline. There was no pronator drift. [id number] testing revealed mild tremor in both sides with no definite ataxia. She was able to lift each leg above against gravity without difficulty. Deep tendon reflexes were absent with flexor plantars. Results Labs CBC & Chem 7: 09/06/21 06:50 09/06/21 06:50 Labs: Short CBC 09/05/21 09/06/21 Range/Units 22:48 06:50 WBC 14.5 H 12.4 H (4.8-10.8) X10*3/uL Hgb 13.0 11.4 L (12.0-16.0) g/dl Hct 38.3 33.8 L (37-47) % Plt Count 344 295 (160-400) X10*3/uL BMP 09/05/21 09/06/21 22:48 06:50 Sodium 133 L 134 L Potassium 4.5 4.4 Chloride 95 L 100 Carbon Dioxide 25 22 BUN 21 H 17 H Creatinine 1.24 1.04 Calcium 10.3 H D 8.7 D Liver Function 09/05/21 Range/Units 22:48 Total Bilirubin 0.2 (0.0-1.0) mg/dL AST 16 (5-31) U/L ALT 16 (0-31) U/L Alkaline Phosphatase 71 (39-117) U/L Albumin 4.9 (3.5-5.0) g/dL Urine 09/05/21 Range/Units 23:19 Urine Color YELLOW Urine Appearance CLEAR Urine pH 6.5 (5.0-8.0) Ur Specific [place] 1.010 (1.005-1.025) Urine Protein 2+ H (NEG-TRACE) MG/DL Urine Glucose (UA) >=1000 H (NEG) MG/DL Her noncontrast head CT revealed left cerebellar patchy hypodensity suggestive of subacute infarct. An MRI of brain without contrast was also done that revealed restricted area of diffusion in that area of cerebellum and mildly hyperintense FLAIR signal corresponding to that. Otherwise MRI revealed diffuse mild cerebral atrophy. Assessment and Plan (1) Cerebellar infarction: Status: Acute 86 years old woman who presented with complex set of symptoms including dizziness, abdominal pain, and high blood pressure that she took at home. In emergency room her blood pressure was high, her abdominal evaluation reveal urinary retention, and urine was suggestive of UTI. With diagnosis of infection she was treated accordingly but later at a CT scan of brain was done that revealed a left cerebellar lesion, which was an acute ischemic infarction. This infarction was probably due to atherosclerotic or atherothrombotic disease related to hypertension. One cannot completely rule out possibility of embolism. Due to complex set of symptoms and lack of clarity of initial diagnosis she was not considered a patient with stroke or requiring any treatment with tPA. At this time there was no option for active treatment for stroke. Mainstay of management is treatment of hypertension, infection, and PT and OT and evaluating for any other causes of stroke. I would recommend cautiously treating hypertension and avoiding hypotension. PT OT consultation should be obtained. She should be admitted on a monitored unit and should have neurological monitoring especially between 48 hours to 72 hours time window. Because of significant atrophy, I do not think there was any significant risk of brain swelling or herniation. She could be managed medically. As far as medicines are concerned, I recommend anti-platelet agent and statin for now. Appropriate cardiac workup for stroke is also recommended. A CTA of brain and neck is also recommended to evaluate her vasculature. Procedures Date of Service Date of Service: 09/06/21
[2021-09-06 11:24] LABS: Glucose, Whole Blood 186 mg/dL (60-115)
--- NOTE | 2021-09-06 12:16 | P.PNIM_ITS ---
Subjective Subjective Date of Service: 09/07/21 Interval History: Seen in f/u for acute stroke. She presented with constipation, n/v and dizziness and had abominal w/u with CT which showed no acute finding. This mornign due to persistent dizziness, nausea and elevated blood pressure, concern was raised about posterior circulation stroke and therefore stat CT stroke protock was done and showed . Decreased attenuation inferior left cerebellum and posterior left basal ganglia, possibly acute or subacute infarct. 2. 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 3. No intracranial hemorrhage, hydrocephalus, or midline shift and subsequently an MRI confirmed acute stroke. ? Review of Systems no fever, dizziness better nausea/vomitting no headache Physical Exam Vital Signs: Vital Signs: Last Vital Signs Temp 98 F 09/06/21 11:14 Pulse 85 09/06/21 11:14 Resp 18 09/06/21 11:14 BP 121/32 L 09/06/21 11:14 Pulse Ox 98 09/06/21 11:14 Body Mass Index 30.9 General: AO X 3, no acute distress Resp: CTA bilateral CVS: S1,S2,RRR GI: +BS, NT, no distention Skin: No rash Neuro: motor grossly intact Psych: appropriate affect Objective Data Active Medications Amlodipine Besylate (Amlodipine Besylate 2.5 Mg Tablet) 2.5 mg PO DAILY [facility] [place]; Protocol Last Admin: 09/06/21 07:57 Dose: 2.5 mg Documented by: BRENDA Aspirin (Aspirin 81 Mg Tab.Chew) 81 mg PO DAILY [facility] Dextrose (Dextrose 50 % 25 Gm/50 Ml Vial) 25 gm IVPUSH Q15M PRN; Protocol PRN Reason: per Hypoglycemia Standing Ord. Glucose (Glucose Gel 15 Gm Gel..Gram.) 15 gm PO Q15M PRN; Protocol PRN Reason: per Hypoglycemia Standing Ord. Heparin Sodium (Porcine) (Heparin Sodium,Porcine 5,000 Unit/Ml Vial) 5,000 unit SUBCUT Q12H [facility] Sodium Chloride (Ns) 1,000 mls @ 50 mls/hr IVCONT .Q20H [facility] Last Admin: 09/06/21 04:19 Dose: 50 mls/hr Documented by: CORNELIA Ceftriaxone Sodium 1 gm/ (Sodium Chloride) 50 mls @ 100 mls/hr IV Q24H [facility] [place] Insulin Human Lispro (Insulin Lispro 100 Unit/Ml 3 Ml Vial) 0 unit SUBCUT QIDACHS [facility]; Protocol Last Admin: 09/06/21 11:20 Dose: Not Given Documented by: ALEJANDRO Non-Admin Reason: NPO Melatonin (Melatonin 3 Mg Tablet) 6 mg PO BEDTIME PRN PRN Reason: Insomnia Morphine Sulfate (Morphine Sulfate 2 Mg/Ml Cartridge) 2 mg IVPUSH Q4H PRN; Pro tocol PRN Reason: Pain, Severe (Pain Scale 7-10) Last Admin: 09/06/21 07:45 Dose: 2 mg Documented by: BRENDA Senna (Sennosides 8.6 Mg Tablet) 17.2 mg PO BEDTIME PRN PRN Reason: Constipation Sodium Chloride (0.9 % Sodium Chloride Flush 3 Ml Syringe) 3 ml IVFLUSH [facility] Last Admin: 09/06/21 11:13 Dose: Not Given Documented by: ALEJANDRO Non-Admin Reason: IV Running Labs CBC & Chem 7: 09/06/21 06:50 09/06/21 06:50 Labs: Laboratory Results - last 24 hr 09/05/21 09/05/21 09/05/21 22:47 22:48 22:48 MCV 83.8 MCH 28.4 MCHC 33.9 RDW 13.6 Plt Count 344 MPV 10.8 Immature Gran % (Auto) 0.4 Neut % (Auto) 65.7 Lymph % (Auto) 21.3 [place] % (Auto) 10.5 Eos % (Auto) 1.5 Baso % (Auto) 0.6 Lymph # (Auto) 3.1 [place] # (Auto) 1.5 H Eos # (Auto) 0.2 Baso # (Auto) 0.1 Abs Immat Gran (auto) 0.06 H Absolute Neuts (auto) 9.6 H Absolute Nucleated RBC 0.000 Nucleated RBC % (auto) 0.0 Smear Tech's Comments VERIFIED Anion Gap 18 Estim Creat Clear Calc 33.1 Estimated GFR 41 POC Glucose Random Glucose 299 H Lactic Acid 3.2 H* Lactic Acid Fup @ 2Hr Lactic Acid Fup @ 4Hr Calcium 10.3 H D Total Bilirubin 0.2 AST 16 ALT 16 Alkaline Phosphatase 71 Total Protein 8.4 H Albumin 4.9 Urine Color Urine Appearance Urine pH Ur Specific [place] Urine Protein Urine Glucose (UA) Urine Ketones Urine Blood Urine Nitrite Ur Leukocyte Esterase Urine RBC Urine WBC Ur Squamous Epith Cells Urine Bacteria Coronavirus (PCR) Influenza Type A (PCR) Influenza Type B (PCR) RSV RNA Qual (PCR) 09/05/21 09/05/21 09/06/21 22:48 23:19 03:32 MCV MCH MCHC RDW Plt Count MPV Immature Gran % (Auto) Neut % (Auto) Lymph % (Auto) [place] % (Auto) Eos % (Auto) Baso % (Auto) Lymph # (Auto) [place] # (Auto) Eos # (Auto) Baso # (Auto) Abs Immat Gran (auto) Absolute Neuts (auto) Absolute Nucleated RBC Nucleated RBC % (auto) Smear Tech's Comments Anion Gap Estim Creat Clear Calc Estimated GFR POC Glucose Random Glucose Lactic Acid Lactic Acid Fup @ 2Hr 2.2 H* Lactic Acid Fup @ 4Hr Calcium Total Bilirubin AST ALT Alkaline Phosphatase Total Protein Albumin Urine Color YELLOW Urine Appearance CLEAR Urine pH 6.5 Ur Specific [place] 1.010 Urine Protein 2+ H Urine Glucose (UA) >=1000 H Urine Ketones NEG Urine Blood TRACE Urine Nitrite POS H Ur Leukocyte Esterase 1+ H Urine RBC 0-2 Urine WBC 5-9 H Ur Squamous Epith Cells TRACE Urine Bacteria 1+ Coronavirus (PCR) NEGATIVE Influenza Type A (PCR) NEGATIVE Influenza Type B (PCR) NEGATIVE RSV RNA Qual (PCR) NEGATIVE 09/06/21 09/06/21 09/06/21 06:50 06:50 06:50 MCV 84.1 MCH 28.4 MCHC 33.7 RDW 13.7 Plt Count 295 MPV 10.8 Immature Gran % (Auto) 0.4 Neut % (Auto) 72.7 Lymph % (Auto) 15.6 L [place] % (Auto) 10.6 Eos % (Auto) 0.1 Baso % (Auto) 0.6 Lymph # (Auto) 1.9 [place] # (Auto) 1.3 H Eos # (Auto) 0.0 Baso # (Auto) 0.1 Abs Immat Gran (auto) 0.05 H Absolute Neuts (auto) 9.0 H Absolute Nucleated RBC 0.000 Nucleated RBC % (auto) 0.0 Smear Tech's Comments Anion Gap 16 Estim Creat Clear Calc 39.4 Estimated GFR 50 POC Glucose Random Glucose 279 H Lactic Acid Lactic Acid Fup @ 2Hr Lactic Acid Fup @ 4Hr 3.1 H* Calcium 8.7 D Total Bilirubin AST ALT Alkaline Phosphatase Total Protein Albumin Urine Color Urine Appearance Urine pH Ur Specific [place] Urine Protein Urine Glucose (UA) Urine Ketones Urine Blood Urine Nitrite Ur Leukocyte Esterase Urine RBC Urine WBC Ur Squamous Epith Cells Urine Bacteria Coronavirus (PCR) Influenza Type A (PCR) Influenza Type B (PCR) RSV RNA Qual (PCR) 09/06/21 09/06/21 07:32 11:09 MCV MCH MCHC RDW Plt Count MPV Immature Gran % (Auto) Neut % (Auto) Lymph % (Auto) [place] % (Auto) Eos % (Auto) Baso % (Auto) Lymph # (Auto) [place] # (Auto) Eos # (Auto) Baso # (Auto) Abs Immat Gran (auto) Absolute Neuts (auto) Absolute Nucleated RBC Nucleated RBC % (auto) Smear Tech's Comments Anion Gap Estim Creat Clear Calc Estimated GFR POC Glucose 261 H 186 H Random Glucose Lactic Acid Lactic Acid Fup @ 2Hr Lactic Acid Fup @ 4Hr Calcium Total Bilirubin AST ALT Alkaline Phosphatase Total Protein Albumin Urine Color Urine Appearance Urine pH Ur Specific [place] Urine Protein Urine Glucose (UA) Urine Ketones Urine Blood Urine Nitrite Ur Leukocyte Esterase Urine RBC Urine WBC Ur Squamous Epith Cells Urine Bacteria Coronavirus (PCR) Influenza Type A (PCR) Influenza Type B (PCR) RSV RNA Qual (PCR) Echocardiogram Echocardiogram Results: 86/F w/ HTN, HLD, diabetes who presented to the ED cibstipation but also has been on complaining of dizziness and vomitting. Abdominal work up with CT was unremarkable yet she continues to have dizziness, worst with head movment and her blood pressure has been very augusto. A stat CT and stat MRI showed There is an acute infarct within the PICA territory of the inferior left cerebellar hemisphere associated with mild local mass effect and no hemorrhagic transform ation. No significant fourth ventricular effacement at this time. Time of oset is not clear however dizziness her clearly documented in nursing triage note at 22.30 and later dizziness also documented by ED physician.. At that time of my evaluation that was nearly 8 hours later and therefore would not have qualified for tPA at that time. 1/Acute Stroke involving PICA territory resulting in dizziness and unsteady Neuro recommends -Head and Neck CT, ASA, echo -Permisve HTN for now -PT/OT -She is allergic to statin, check lipid tomorrow anyway 2. UTI--Ceftriaxone, D2, culture pending 3.HTN--giving acute ischemic stroke, will alow permisive HTN for now but ultimately will restart bP meds ? 4. Diabetes--hold oral meds, diabetes. 5. Abdominal pain..no acute finding on CT, US to further assess Quality Stroke Does the patient have a stroke diagnosis?: No VTE Prior VTE?: No VTE Risk Level:: Medical - moderate - high VTE Device Contraindication: N/A - Device Ordered VTE Drug Contraindication: Treatment Not Indicated
[2021-09-06] MEDS: Heparin Sodium,Porcine 5,000 UNIT/ML VIAL 5000 UNIT SUBCUT (13:22)
[2021-09-06] MEDS: Aspirin 81 MG TAB.CHEW PO (13:22)
[2021-09-06] MEDS: iohexoL 350 MG/ML 100 ML INFUS..BTL 70 ML IV (14:09)
--- NOTE | 2021-09-06 14:09 | MHC.STROKE ---
Addendum entered by Marce Ram RN 09/09/21 13:28: I MET WITH THE PATIENT AND HER DAUGHTER A FOLLOW UP. WE REVIEWED HER DIAGNOSIS AND THE LEFT VERTEBRAL OCCLUSION AND ASSOCIATED SYMPTOMS. SHE NEEDS TO CONTROL HER BP AND CHOLESTEROL. SHE HAS SEVERE MUSCLE ACHES FROM STATIN AND I MENTIONED FOR HER TO SPEAK WITH HER PCP AND DISCUSS OPTIONS. I ANSWERED ALL OF THEIR QUESTIONS. SHE LIVES ALONE AND WILL BE RECEIVING VNA AND REHAB AT HOME. Original Note: 09/05/21 EMS PRE-NOTIFIED AT 2205 NAUSEA/VOMITED, HTN. ARRIVED 2205. I SPOKE TO THE PATIENT THIS MORNING AND SHE SAID YESTERDAY SHE FELT FINE, SHE WENT TO THE EYE DOCTOR, HE DILATED HER EYES, SHE DROVE HOME. SHE LIVES ALONE. SHE RESTED BUT DID NOT NAP. SHE HAD DINNER AND THEN AROUND 8-8:30 PM SHE BECAME VERY WARM AND FLUSHED, NAUSEATED, VOMITED A SMALL AMOUNT. SHE TOOK HER OWN BP WITH A WRIST CUFF AND IT WAS HIGH . SHE SAT FOR A WHILE AND TRIED TO GET UP OFF THE CHAIR BUT COULDN'T BECAUSE SHE WAS SO DIZZY, SHE EVENTUALLY GOT TO THE PHONE AND CALLED HER DAUGHTER, THE DAUGHTER CAME AND THEY PUT COOL CLOTHS ON HER HEAD. BUT SHE DIDN'T FEEL ANY BETTER, THE BP WAS STILL HIGH SO THEY CALLED 911. THE PATIENT ARRIVED AND HER SBP WAS INITIALLY 154/126 AND THEN BECAME MORE ELEVATED. SHE WAS C/O LOWER ABDOMINAL PAIN, SHE ALSO STATED SHE HAD NOT HAD A BM IN 2-3 DAYS. LACTIC ACID WAS ELEVATED AND OTHER ABNORMAL LABS. SHE WAS BLADDER SCANNED FOR 1500CC AND F/C WAS LEFT IN PLACE. IN THE AM SHE HAD A CTH, FOLLOWED BY A MRI AND THEN NEUROLOGY CONSULT. MRI + FOR A LEFT CEREBELLAR STROKE, SEE DR ZEE'S NOTE. NIHSS = 0, ALTHOUGH SHE DID NOT GET UP AND WALK. REVIEWED DR ZEE'S ASSESSMENT WITH DR DELCID. CTA H/N WAS ORDERED, ECHO. LIPID PANEL, REHAB, SHE IS ALLERGIC TO STATIN AND DEVELOPS SEVERE LEG PAIN AND REFUSES TO TAKE A STATIN BASED ON THIS, THEREFORE IT IS CONTRAINDICATED. I PROVIDED STROKE EDUCATION TWICE, INITIALLY WITH THE PATIENT AND THEN WITH THE PATIENT AND DAUGHTER. WE REVIEWED HER DIAGNOSIS, I GAVE THEM A SCREEN SHOT OF THE MRI IMAGE OF THE LOCATION OF THE STROKE AND I REVIEWED THE CORRELATING SYMPTOMS. I ANSWERED ALL OF THEIR QUESTIONS, REVIEWED THE PLAN OF CARE. OBSERVE NEURO'S CLOSELY, MONITOR FOR BRADYCARDIA, OR ANY RESPIRATORY DEPRESSION. I WILL CONTINUE TO FOLLOW.
[2021-09-06] MEDS: iohexoL 350 MG/ML 100 ML INFUS..BTL IV (14:39)
--- NOTE | 2021-09-06 15:00 | CA_ITS ---
Transthoracic Echocardiogram Patient (Last, First, Middle): Aby Herzog M Gender: Female Date of : 1935 Age: 86 Procedure Date: 09/06/2021 Procedure Type: Transthoracic Echocardiogram Location: [facility] [place] Height: 160.02 cm Weight: 79.38 kg BSA: 1.83 m2 Heart Rate: bpm BP: 160 / 53 mmHg Food And Beverage Director: LINA Referring MD: Michael Vail MD Engineering Recruiter: Mike West MD Symptoms: stroke Study Quality: Fair ECG Rhythm: Sinus Conclusions: - 1. Normal LV systolic function with mild LVH with impaired relaxation filling pattern with elevated filling pressures 2. Moderate aortic stenosis 3. Normal RV systolic pressure 4. No gross pericardial effusion Findings Left Ventricle Normal left ventricular size and systolic function. There is mildly increased left ventricular wall thickness. The visually estimated ejection fraction is between 60-65%. Spectral Doppler is indicative of an impaired relaxation filling pattern. Elevated filling pressures. E/E prime ratio is >15, consistent with elevated filling pressures. Right Ventricle Normal right ventricular cavity size and systolic function. Atria The left atrium is likely dilated. Interatrial shunt cannot be excluded. The right atrium is normal in size. Aortic Valve The aortic valve was not well visualized. There is moderate calcification of the aortic valve. There is moderate aortic valve stenosis. The peak aortic gradient is 36 mmHg.The mean gradient is 21 mmHg. The aortic valve area is 1.19 cm2. There is no aortic valve regurgitation. Mitral Valve There is mild anterior and moderate posterior mitral leaflet thickening. There is moderate mitral annular calcification. There is trace mitral valve regurgitation. There is no mitral valve stenosis. Pulmonic Valve The pulmonic valve was not well visualized. Tricuspid Valve There is trace tricuspid valve regurgitation. The right ventricular systolic pressure is normal. The right ventricular systolic pressure is 24 mmHg. There is no evidence of pulmonary hypertension. Great Vessels All visible segments of the aorta are normal in size. The pulmonary artery was not well visualized. Venous The inferior vena cava is normal in size and collapses greater than 50% with inspiration. Pericardium/Pleural There is no evidence of pericardial effusion. Prior Study Comparison No prior study available for comparison. Measurements 2D Linear Measurements IVSd: 1.27 0.6-0.9/0.6-1.0 cm LVIDd: 3.63 3.9-5.3/4.2-5.9 cm LVIDd Index: 1.98 2.4-3.2/2.2-3.1 cm/m2 LVIDs: 2.38 2.0-3.6 cm LVPWd: 1.32 0.7-1.1 cm Ao Root: 3.20 2.1-3.5 cm LA Diam: 3.50 2.7-3.8/3.0-4.0 cm LAIDs Index: 1.91 1.5-2.3 cm/m2 LV Mass: 200.52 67-162/88-224 g LV Mass Index: 109.57 43-95/49-115 g/m2 LVOT Diam: 2.00 3.0+(-)1.3 cm Mitral Valve MV Pk E: 1.06 MV PK A: 1.56 MV Decel Time: 169.00 E/A: 0.70 E'Lateral: 4.24 E'Medial: 4.13 E/E' Med: 25.70 E/E' Lat: 25.00 PHT: 49.00 MVA PHT: 4.49 Decel Rusk: 6.27 Aortic Valve AoV Pk Lakhwinder: 3.01 AoV Mn Lakhwinder: 2.12 AoV VTI: 0.61 AoV Pk Grad: 36.00 Aov Mn Grad: 21.00 UNRULY Cont.VTI: 1.19 LVOT LVOT Pk Lakhwinder: 0.94 LVOT Mn Lakhwinder: 0.63 LVOT VTI: 0.23 LVOT Pk Grad: 4.00 LVOT Mn Grad: 2.00 LVOT Diam: 2.00 LVOT Area: 3.14 Diastolic Function MV Pk E: 1.06 MV Pk A: 1.56 E/A: 0.70 E'Medial: 4.13 E/E' Med: 25.70 E' Laterial: 4.24 E/E' Lat: 25.00 Tricuspid Valve TR Pk Lakhwinder: 2.30 TR Pk Grad: 21.00 RA Press: 3.00 RVSP: 24.00 Great Vessels Aorta Ao Root-2D: 3.20 2.0-3.7 cm Ao Asc: 2.90 2.1-3.4 cm Pulmonary Valve PV Pk Lakhwinder: 0.88 Peak PV Grad: 3.00 Updated in Other Vendor System with Status of Final Mike West MD electronically signed on 09/06/2021 4:02:43 PM with status of Final
[2021-09-06] MEDS: Sennosides 8.6 MG TABLET 17.2 MG PO (20:48)
[2021-09-06 20:51] LABS: Glucose, Whole Blood 299 mg/dL (60-115)
[2021-09-06] MEDS: Melatonin 3 MG TABLET 6 MG PO (20:53)
[2021-09-06] MEDS: Acetaminophen 325 MG TABLET 650 MG PO (21:01)
[2021-09-07] VITALS (10 sets, daily range): BP systolic 117–204; BP diastolic 51–82; PULSE 88–99; RESP 12–18; TEMP 36.4–37; O2SAT 96–98
[2021-09-07] MEDS: Heparin Sodium,Porcine 5,000 UNIT/ML VIAL 5000 UNIT SUBCUT ×2 (01:12→13:39)
[2021-09-07] MEDS: 0.9 % Sodium Chloride 1,000 ML 50 ML IVCONT ×2 (01:13→23:08)
[2021-09-07 06:53] LABS: Cholesterol 202 mg/dL; HDL Cholesterol 43 mg/dL; LDL Cholesterol Calculated 119 mg/dl; Triglycerides 204 mg/dL
[2021-09-07] MEDS: Insulin Lispro 100 UNIT/ML 3 ML VIAL SUBCUT ×4 (07:28→20:24)
--- NOTE | 2021-09-07 07:33 | PC.NURSE ---
Assumed care of patient. Pt is awake, eating breakfast and is tolerating PO intake. Pt states she slept well and appears to be in no distress at this time. Pt given 2 units of SQ insulin for a CBG of 189.
[2021-09-07 08:13] LABS: Glucose, Whole Blood 189 mg/dL (60-115)
[2021-09-07] MEDS: metFORMIN HCl ER 500 MG TAB.ER.24H 1000 MG PO ×2 (08:53→20:14)
[2021-09-07] MEDS: glipiZIDE XL 5 MG TAB.ER.24 PO ×2 (08:53→20:14)
[2021-09-07] MEDS: Aspirin 81 MG TAB.CHEW PO (08:53)
[2021-09-07] MEDS: Cholecalciferol (Vitamin D3) 25 MCG TABLET PO (08:53)
[2021-09-07] MEDS: lisinopriL 2.5 MG TABLET PO (08:53)
[2021-09-07] MEDS: Dicyclomine HCl 10 MG CAPSULE 20 MG PO ×3 (08:54→20:14)
--- NOTE | 2021-09-07 10:37 | HO.PM.IMPN ---
Subjective Subjective Date of Service: 09/07/21 Interval History: Seen in f/u acute stroke, she is feeling better this morning, no more dizziness, no PLUMMER, had some abdominal discomfort but feels better right now Review of Systems Gen: no fever Resp: no sob, no cough CV: no chest, no RODRÍGUEZ, no leg edema GI: No n/v, no abd pain Neuro: No confusion, no weakness, no dizzie Physical Exam Vital Signs: Vital Signs: Last Vital Signs Temp 98.6 F 09/07/21 00:05 Pulse 93 09/07/21 08:25 Resp 18 09/07/21 06:19 BP 175/73 H 09/07/21 06:19 Pulse Ox 96 09/07/21 00:05 Body Mass Index 30.9 General: AO X 3, no acute distress Resp: CTA bilateral CVS: S1,S2,RRR GI: +BS, NT, no distention Skin: No rash Neuro: motor grossly intact, moves all extremities, normal speech and vision Psych: appropriate affect Objective Data Active Medications Acetaminophen (Acetaminophen 325 Mg Tablet) 650 mg PO Q6H PRN PRN Reason: Breakthrough Pain Last Admin: 09/06/21 21:01 Dose: 650 mg Documented by: ELENA Aspirin (Aspirin 81 Mg Tab.Chew) 81 mg PO DAILY [facility] Last Admin: 09/07/21 08:53 Dose: 81 mg Documented by: CRISPIN Dextrose (Dextrose 50 % 25 Gm/50 Ml Vial) 25 gm IVPUSH Q15M PRN; Protocol PRN Reason: per Hypoglycemia Standing Ord. Dicyclomine HCl (Dicyclomine Hcl 10 Mg Capsule) 20 mg PO TID [facility] Last Admin: 09/07/21 08:54 Dose: 20 mg Documented by: CRISPIN Glipizide (Glipizide Xl 5 Mg Tab.Er.24) 5 mg PO BID [facility] Last Admin: 09/07/21 08:53 Dose: 5 mg Documented by: CRISPIN Glucose (Glucose Gel 15 Gm Gel..Gram.) 15 gm PO Q15M PRN; Protocol PRN Reason: per Hypoglycemia Standing Ord. Heparin Sodium (Porcine) (Heparin Sodium,Porcine 5,000 Unit/Ml Vial) 5,000 unit SUBCUT Q12H [facility] Last Admin: 09/07/21 01:12 Dose: 5,000 unit Documented by: ELENA Sodium Chloride (Ns) 1,000 mls @ 50 mls/hr IVCONT .Q20H [facility] Last Admin: 09/07/21 01:13 Dose: 50 mls/hr Documented by: ELENA Ceftriaxone Sodium 1 gm/ (Sodium Chloride) 50 mls @ 100 mls/hr IV Q24H [facility] Last Infusion: 09/06/21 21:59 Dose: 0 mls/hr Documented by: ELENA Insulin Human Lispro (Insulin Lispro 100 Unit/Ml 3 Ml Vial) 0 unit SUBCUT QIDACHS [facility]; Protocol Last Admin: 09/07/21 07:28 Dose: 2 unit Documented by: CRISPIN Lisinopril (Lisinopril 2.5 Mg Tablet) 2.5 mg PO DAILY [facility]; Protocol Last Admin: 09/07/21 08:53 Dose: 2.5 mg Documented by: CRISPIN Melatonin (Melatonin 3 Mg Tablet) 6 mg PO BEDTIME PRN PRN Reason: Insomnia Last Admin: 09/06/21 20:53 Dose: 6 mg Documented by: ELENA Metformin HCl (Metformin Hcl Er 500 Mg Tab.Er.24h) 1,000 mg PO BID [facility] Last Admin: 09/07/21 08:53 Dose: 1,000 mg Documented by: CRISPIN Morphine Sulfate (Morphine Sulfate 2 Mg/Ml Cartridge) 2 mg IVPUSH Q4H PRN; Protocol PRN Reason: Pain, Severe (Pain Scale 7-10) Last Admin: 09/06/21 07:45 Dose: 2 mg Documented by: BRENDA Senna (Sennosides 8.6 Mg Tablet) 17.2 mg PO BEDTIME PRN PRN Reason: Constipation Last Admin: 09/06/21 20:48 Dose: 17.2 mg Documented by: ELENA Sodium Chloride (0.9 % Sodium Chloride Flush 3 Ml Syringe) 3 ml IVFLUSH QSHIFT [facility] Last Admin: 09/07/21 07:12 Dose: Not Given Documented by: CRISPIN Non-Admin Reason: Med Not Available Vitamin D (Cholecalciferol (Vitamin D3) 25 Mcg Tablet) 25 mcg PO DAILY [facility] Last Admin: 09/07/21 08:53 Dose: 25 mcg Documented by: CRISPIN Labs CBC & Chem 7: 09/06/21 06:50 09/06/21 06:50 Labs: Laboratory Results - last 24 hr 09/06/21 09/06/21 09/07/21 11:09 20:47 06:15 POC Glucose 186 H 299 H Triglycerides 204 Cholesterol 202 LDL Cholesterol, Calc 119 HDL Cholesterol 43 09/07/21 07:14 POC Glucose 189 H Triglycerides Cholesterol LDL Cholesterol, Calc HDL Cholesterol Microbiology Microbiology Results: Microbiology 09/05/21 23:48 Urine Culture - Final Urine clean catch - Urine oconnell top 09/05/21 23:19 Blood Culture - Preliminary Blood - Venous No growth after 24 hours. 09/05/21 23:19 Blood Culture - Preliminary Blood - Venous No growth after 24 hours. Assessment and Plan (1) Cerebellar infarction: Status: Acute (2) UTI (urinary tract infection): Status: Acute Assessment and Plan: 86/F w/ HTN, HLD, diabetes who presented to the ED cibstipation but also has been on complaining of dizziness and vomitting. Abdominal work up with CT was unremarkable yet she continues to have dizziness, worst with head movment and her blood pressure has been very augusto.? A stat CT? and stat MRI showed?There is an acute infarct within the PICA territory of the inferior left cerebellar hemisphere associated with mild local mass effect and no hemorrhagic transformation. No significant fourth ventricular effacement at this time. Time of oset is not clear however dizziness her clearly documented in nursing triage note at 22.30 and later dizziness also documented by ED physician.. At that time of my evaluation that was nearly 8 hours? later and therefore would not have qualified for tPA at that time. 1/Acute Stroke involving PICA territory resulting in dizziness and unsteady Neuro recommends -Head and Neck CT, ASA, echo -Permisve HTN for now -PT/OT -She is allergic to? statin, diet watch for chol control 2. UTI--Ceftriaxone, started 09/05, culture pending 3.HTN--giving acute ischemic stroke, will alow permisive HTN? for now but ultimately will restart PP meds ? 4. Diabetes--restart med since she is eating, hold insulin 70/30 5. Abdominal pain..no acute finding on CT, US no acute finding, pain is better, possible d/t constipation, bowel regimen and continue to monitor Quality Stroke Does the patient have a stroke diagnosis?: No VTE Prior VTE?: No VTE Risk Level:: Medical - moderate - high VTE Device Contraindication: N/A - Device Ordered VTE Drug Contraindication: Treatment Not Indicated
[2021-09-07 12:28] LABS: Glucose, Whole Blood 160 mg/dL (60-115)
--- NOTE | 2021-09-07 12:56 | PC.NURSE ---
call placed for report, rn to call back
[2021-09-07 16:22] LABS: Glucose, Whole Blood 191 mg/dL (60-115)
[2021-09-07] MEDS: cefTRIAXone sodium 1 GM in 0.9 % Sodium Chloride 50 ML IV (20:13)
[2021-09-07] MEDS: Sennosides 8.6 MG TABLET 17.2 MG PO (20:14)
[2021-09-07 20:25] LABS: Glucose, Whole Blood 164 mg/dL (60-115)
[2021-09-08] VITALS (7 sets, daily range): BP systolic 130–170; BP diastolic 40–70; PULSE 88–93; RESP 16–18; TEMP 36.3–37.1; O2SAT 95–100
[2021-09-08] MEDS: 0.9 % Sodium Chloride Flush 3 ML SYRINGE IVFLUSH ×3 (01:20→17:10)
[2021-09-08] MEDS: Heparin Sodium,Porcine 5,000 UNIT/ML VIAL 5000 UNIT SUBCUT ×2 (01:54→12:40)
[2021-09-08] MEDS: lisinopriL 2.5 MG TABLET PO (07:56)
[2021-09-08] MEDS: Dicyclomine HCl 10 MG CAPSULE 20 MG PO ×3 (07:56→22:20)
[2021-09-08] MEDS: glipiZIDE XL 5 MG TAB.ER.24 PO (07:57)
[2021-09-08] MEDS: Aspirin 81 MG TAB.CHEW PO (07:57)
[2021-09-08] MEDS: metFORMIN HCl ER 500 MG TAB.ER.24H 1000 MG PO ×2 (07:57→22:20)
[2021-09-08] MEDS: Cholecalciferol (Vitamin D3) 25 MCG TABLET PO (07:57)
[2021-09-08] MEDS: Insulin Lispro 100 UNIT/ML 3 ML VIAL SUBCUT ×2 (08:02→12:41)
[2021-09-08 08:03] LABS: Glucose, Whole Blood 163 mg/dL (60-115)
--- NOTE | 2021-09-08 08:58 | HO.PM.IMPN ---
Subjective Subjective Date of Service: 09/08/21 Interval History: Seen in f/u acute stroke, she is feeling better this morning, no more dizziness, no PLUMMER, no abdominal pain. Review of Systems Gen: no fever Resp: no sob, no cough CV: no chest, no RODRÍGUEZ, no leg edema GI: No n/v, no abd pain Neuro: No confusion, no weakness, no dizzie Physical Exam Vital Signs: Vital Signs: Last Vital Signs Temp 97.9 F 09/08/21 07:36 Pulse 91 09/08/21 07:56 Resp 18 09/08/21 07:36 BP 130/60 09/08/21 07:56 Pulse Ox 95 09/08/21 07:36 Body Mass Index 30.9 Const: Other: General: AO X 3, no acute distress Resp:? CTA bilateral CVS: S1,S2,RRR GI: +BS, NT, no distention Skin: No rash Neuro:? motor grossly intact, moves all extremities, normal speech and vision Psych: appropriate affect Objective Data Active Medications Acetaminophen (Acetaminophen 325 Mg Tablet) 650 mg PO Q6H PRN PRN Reason: Breakthrough Pain Last Admin: 09/06/21 21:01 Dose: 650 mg Documented by: ELENA Aspirin (Aspirin 81 Mg Tab.Chew) 81 mg PO DAILY [facility] Last Admin: 09/08/21 07:57 Dose: 81 mg Documented by: JOCELIN Dextrose (Dextrose 50 % 25 Gm/50 Ml Vial) 25 gm IVPUSH Q15M PRN; Protocol PRN Reason: per Hypoglycemia Standing Ord. Dicyclomine HCl (Dicyclomine Hcl 10 Mg Capsule) 20 mg PO TID [facility] Last Admin: 09/08/21 07:56 Dose: 20 mg Documented by: JOCELIN Glipizide (Glipizide Xl 5 Mg Tab.Er.24) 5 mg PO BID [facility] Last Admin: 09/08/21 07:57 Dose: 5 mg Documented by: JOCELIN Glucose (Glucose Gel 15 Gm Gel..Gram.) 15 gm PO Q15M PRN; Protocol PRN Reason: per Hypoglycemia Standing Ord. Heparin Sodium (Porcine) (Heparin Sodium,Porcine 5,000 Unit/Ml Vial) 5,000 unit SUBCUT Q12H [facility] Last Admin: 09/08/21 01:54 Dose: 5,000 unit Documented by: PADMINI Ceftriaxone Sodium 1 gm/ (Sodium Chloride) 50 mls @ 100 mls/hr IV Q24H [facility] Last Infusion: 09/07/21 20:55 Dose: 0 mls/hr Documented by: KELLY Insulin Human Lispro (Insulin Lispro 100 Unit/Ml 3 Ml Vial) 0 unit SUBCUT QIDACHS [facility]; Protocol Last Admin: 09/08/21 08:02 Dose: 2 unit Documented by: JOCELIN Lisinopril (Lisinopril 2.5 Mg Tablet) 2.5 mg PO DAILY [facility]; Protocol Last Admin: 09/08/21 07:56 Dose: 2.5 mg Documented by: JOCELIN Melatonin (Melatonin 3 Mg Tablet) 6 mg PO BEDTIME PRN PRN Reason: Insomnia Last Admin: 09/06/21 20:53 Dose: 6 mg Documented by: ELENA Metformin HCl (Metformin Hcl Er 500 Mg Tab.Er.24h) 1,000 mg PO BID [facility] Last Admin: 09/08/21 07:57 Dose: 1,000 mg Documented by: JOCELIN Morphine Sulfate (Morphine Sulfate 2 Mg/Ml Cartridge) 2 mg IVPUSH Q4H PRN; Protocol PRN Reason: Pain, Severe (Pain Scale 7-10) Last Admin: 09/06/21 07:45 Dose: 2 mg Documented by: BRENDA Senna (Sennosides 8.6 Mg Tablet) 17.2 mg PO BEDTIME PRN PRN Reason: Constipation Last Admin: 09/07/21 20:14 Dose: 17.2 mg Documented by: KELLY Sodium Chloride (0.9 % Sodium Chloride Flush 3 Ml Syringe) 3 ml IVFLUSH QSHIFT [facility] Last Admin: 09/08/21 07:57 Dose: 3 ml Documented by: JOCELIN Vitamin D (Cholecalciferol (Vitamin D3) 25 Mcg Tablet) 25 mcg PO DAILY [facility] Last Admin: 09/08/21 07:57 Dose: 25 mcg Documented by: JOCELIN Labs CBC & Chem 7: 09/06/21 06:50 09/06/21 06:50 Labs: Laboratory Results - last 24 hr 09/07/21 09/07/21 09/07/21 12:20 16:05 20:19 POC Glucose 160 H 191 H 164 H 09/08/21 07:58 POC Glucose 163 H Microbiology Microbiology Results: Microbiology 09/05/21 23:19 Blood Culture - Preliminary Blood - Venous No growth after 48 hours. 09/05/21 23:19 Blood Culture - Preliminary Blood - Venous No growth after 48 hours. 09/05/21 23:48 Urine Culture - Final Urine clean catch - Urine oconnell top Assessment and Plan (1) Cerebellar infarction: Status: Acute (2) UTI (urinary tract infection): Status: Acute (3) Type 2 diabetes mellitus with peripheral neuropathy: Status: Acute (4) Irritable bowel syndrome with constipation: Status: Acute Assessment and Plan: 86/F w/ HTN, HLD, diabetes who presented to the ED cibstipation but also has been on complaining of dizziness and vomitting. Abdominal work up with CT was unremarkable yet she continues to have dizziness, worst with head movment and her blood pressure has been very augusto.? A stat CT? and stat MRI showed?There is an acute infarct within the PICA territory of the inferior left cerebellar hemisphere associated with mild local mass effect and no hemorrhagic transformation. No significant fourth ventricular effacement at this time. Time of oset is not clear however dizziness her clearly documented in nursing triage note at 22.30 and later dizziness also documented by ED physician.. At that time of my evaluation that was nearly 8 hours? later and therefore would not have qualified for tPA at that time. 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 statin, diet watch for chol control 2. UTI--Ceftriaxone D3, started 09/05, final culture no growth. D/C today. 3.HTN--continue BP meds ? 4. Diabetes--continue Glipizide and metfromin, SSI, hold insulin 70/30 5. Abdominal pain..no acute finding on CT, US no acute finding, pain is better, possible d/t constipation, bowel regimen and continue to monitor -Miralax for constipation, Dispos: Probable home by tomorrow if not the then acute rehab Quality Stroke Does the patient have a stroke diagnosis?: No VTE Prior VTE?: No VTE Risk Level:: Medical - moderate - high VTE Device Contraindication: N/A - Device Ordered VTE Drug Contraindication: Treatment Not Indicated
[2021-09-08] MEDS: polyethylene glycoL 3350 17 GM POWD.PACK PO (10:06)
[2021-09-08 12:05] LABS: Glucose, Whole Blood 182 mg/dL (60-115)
[2021-09-08 16:47] LABS: Glucose, Whole Blood 139 mg/dL (60-115)
[2021-09-08 20:10] LABS: Glucose, Whole Blood 146 mg/dL (60-115)
[2021-09-08] MEDS: cefTRIAXone sodium 1 GM in 0.9 % Sodium Chloride 50 ML IV (20:32)
[2021-09-09] VITALS (7 sets, daily range): BP systolic 163–180; BP diastolic 72–77; PULSE 89–96; RESP 14–18; TEMP 36.2–36.4; O2SAT 97–100
[2021-09-09] MEDS: Heparin Sodium,Porcine 5,000 UNIT/ML VIAL 5000 UNIT SUBCUT ×2 (01:32→12:47)
[2021-09-09 07:46] LABS: Glucose, Whole Blood 150 mg/dL (60-115)
[2021-09-09] MEDS: metFORMIN HCl ER 500 MG TAB.ER.24H 1000 MG PO (08:49)
[2021-09-09] MEDS: lisinopriL 10 MG TABLET PO (08:50)
[2021-09-09] MEDS: glipiZIDE XL 5 MG TAB.ER.24 PO (08:51)
[2021-09-09] MEDS: Aspirin 81 MG TAB.CHEW PO (08:51)
[2021-09-09] MEDS: Cholecalciferol (Vitamin D3) 25 MCG TABLET PO (08:51)
[2021-09-09] MEDS: amLODIPine Besylate 5 MG TABLET PO (08:51)
[2021-09-09] MEDS: Dicyclomine HCl 10 MG CAPSULE 20 MG PO (08:51)
[2021-09-09] MEDS: Milk of Magnesia 30 ML ORAL.SUSP PO (09:00)
--- NOTE | 2021-09-09 09:09 | P.PNIM_ITS ---
Subjective Subjective Date of Service: 09/09/21 Interval History: Seen in f/u acute stroke, she is feeling better this morning, no more dizziness, no PLUMMER, still feels constipated Review of Systems Gen: no fever Resp: no sob, no cough CV: no chest, no RODRÍGUEZ, no leg edema GI: nausea, no abdominal pain, feeels constipated Neuro: No confusion, no weaknes Physical Exam Vital Signs: Vital Signs: Last Vital Signs Temp 97.4 F 09/09/21 07:01 Pulse 96 09/09/21 08:51 Resp 18 09/09/21 07:01 BP 180/77 H 09/09/21 08:51 Pulse Ox 97 09/09/21 07:01 Body Mass Index 30.9 General: AO X 3, no acute distress Resp: CTA bilateral CVS: S1,S2,RRR GI: +BS, NT, no distention Skin: No rash Neuro: motor grossly intact Psych: appropriate affect Objective Data Active Medications Acetaminophen (Acetaminophen 325 Mg Tablet) 650 mg PO Q6H PRN PRN Reason: Breakthrough Pain Last Admin: 09/06/21 21:01 Dose: 650 mg Documented by: ELENA Aspirin (Aspirin 81 Mg Tab.Chew) 81 mg PO DAILY [facility] Last Admin: 09/09/21 08:51 Dose: 81 mg Documented by: BERTO Dextrose (Dextrose 50 % 25 Gm/50 Ml Vial) 25 gm IVPUSH Q15M PRN; Protocol PRN Reason: per Hypoglycemia Standing Ord. Dicyclomine HCl (Dicyclomine Hcl 10 Mg Capsule) 20 mg PO TID [facility] Last Admin: 09/09/21 08:51 Dose: 20 mg Documented by: BERTO Glipizide (Glipizide Xl 5 Mg Tab.Er.24) 5 mg PO BID [facility] Last Admin: 09/09/21 08:51 Dose: 5 mg Documented by: BERTO Glucose (Glucose Gel 15 Gm Gel..Gram.) 15 gm PO Q15M PRN; Protocol PRN Reason: per Hypoglycemia Standing Ord. Heparin Sodium (Porcine) (Heparin Sodium,Porcine 5,000 Unit/Ml Vial) 5,000 unit SUBCUT Q12H [facility] Last Admin: 09/09/21 01:32 Dose: 5,000 unit Documented by: PADMINI Insulin Human Lispro (Insulin Lispro 100 Unit/Ml 3 Ml Vial) 0 unit SUBCUT QIDACHS [facility]; Protocol Last Admin: 09/09/21 08:14 Dose: Not Given Documented by: YVONNE Non-Admin Reason: No Insulin Coverage Lisinopril (Lisinopril 10 Mg Tablet) 10 mg PO DAILY [facility]; Protocol Last Admin: 09/09/21 08:50 Dose: 10 mg Documented by: BERTO Magnesium Hydroxide (Milk Of Magnesia 30 Ml Oral.Susp) 30 ml PO DAILY PRN PRN Reason: Constipation Last Admin: 09/09/21 09:00 Dose: 30 ml Documented by: BERTO Melatonin (Melatonin 3 Mg Tablet) 6 mg PO BEDTIME PRN PRN Reason: Insomnia Last Admin: 09/06/21 20:53 Dose: 6 mg Documented by: ELENA Metformin HCl (Metformin Hcl Er 500 Mg Tab.Er.24h) 1,000 mg PO BID [facility] Last Admin: 09/09/21 08:49 Dose: 1,000 mg Documented by: BERTO Morphine Sulfate (Morphine Sulfate 2 Mg/Ml Cartridge) 2 mg IVPUSH Q4H PRN; Protocol PRN Reason: Pain, Severe (Pain Scale 7-10) Last Admin: 09/06/21 07:45 Dose: 2 mg Documented by: BRENDA Senna (Sennosides 8.6 Mg Tablet) 17.2 mg PO BEDTIME PRN PRN Reason: Constipation Last Admin: 09/07/21 20:14 Dose: 17.2 mg Documented by: KELLY Sodium Chloride (0.9 % Sodium Chloride Flush 3 Ml Syringe) 3 ml IVFLUSH QSHIFT [facility] Last Admin: 09/09/21 08:58 Dose: Not Given Documented by: BERTO Non-Admin Reason: IV Running Vitamin D (Cholecalciferol (Vitamin D3) 25 Mcg Tablet) 25 mcg PO DAILY [facility] Last Admin: 09/09/21 08:51 Dose: 25 mcg Documented by: BERTO Labs CBC & Chem 7: 09/06/21 06:50 09/06/21 06:50 Labs: Laboratory Results - last 24 hr 09/08/21 09/08/21 09/08/21 11:22 16:22 20:01 POC Glucose 182 H 139 H 146 H 09/09/21 07:11 POC Glucose 150 H Assessment and Plan (1) UTI (urinary tract infection): Status: Acute (2) Cerebellar infarction: Status: Acute Assessment and Plan: 86/F w/ HTN, HLD, diabetes who presented to the ED cibstipation but also has been on complaining of dizziness and vomitting. Abdominal work up with CT was unremarkable yet she continues to have dizziness, worst with head movment and her blood pressure has been very augusto.? A stat CT? and stat MRI showed?There is an acute infarct within the PICA territory of the inferior left cerebellar hemisphere associated with mild local mass effect and no hemorrhagic bill sformation. No significant fourth ventricular effacement at this time. Time of oset is not clear however dizziness her clearly documented in nursing triage note at 22.30 and later dizziness also documented by ED physician.. At that time of my evaluation that was nearly 8 hours? later and therefore would not have qualified for tPA at that time. 1/Acute Stroke involving PICA territory resulting in dizziness and unsteadiness-- seen on both CT and MRI. She was not in the window for tPA. She was medically treated with ASA (antiplatlets), Statin (Lipitor) and blood pressure control. 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 She has been followed by PT and OT. 2. UTI--uncomplicated, treated with Ceftriaxone for 3 days. 3.HTN--BP was initially very high and has fluctuated, medication have been adjusted to to Lisinopril 10 mg daily, at home 2.5 and started on Norvasc 5 mdaily. ? 4. Diabetes--continue Glipizide and metfromin in the hospital and to resume 70/30 upon discharge. 5. Abdominal pain..no acute finding on CT, US no acute finding, pain is better, possible d/t constipation. Given bowel regimen including, mom, miralax and marina ma. Dispos: Probable home by tomorrow if not the then acute rehab Quality Stroke Does the patient have a stroke diagnosis?: No VTE Prior VTE?: No VTE Risk Level:: Medical - moderate - high VTE Device Contraindication: N/A - Device Ordered VTE Drug Contraindication: Treatment Not Indicated
--- NOTE | 2021-09-09 11:10 | MHC.CLN ---
NUTRITION DIET CHANGED FROM DIABETIC 2000 KCAL TO DIABETIC 1800 KCAL. REVIEW OF WEIGHT HX SHOWS WEIGHT STABLE X 7 MONTHS.
[2021-09-09 11:12] LABS: Glucose, Whole Blood 197 mg/dL (60-115)
--- NOTE | 2021-09-09 11:36 | PM.DS ---
DS: Providers Provider Date of Service: 09/09/21 Date of admission: 09/06/21 02:28 Primary care physician: Unknown Physician Consults: 09/06/21 02:28 Consult to Urology Routine Consulting Provider: Dell Walsh Reason for consultation: UTI/urine retension 09/06/21 08:26 Consult to Neurology Stat Consulting Provider: [facility] Reason for consultation: Dizziness, possible posterir circulation stroke DS: Diagnosis Discharge Diagnosis (1) UTI (urinary tract infection): Status: Acute (2) Cerebellar infarction: Status: Acute DS: Summary Hospital Course Hospital Course: 86/F w/ HTN, HLD, diabetes who presented to the ED cibstipation but also has been on complaining of dizziness and vomitting. Abdominal work up with CT was unremarkable yet she continues to have dizziness, worst with head movment and her blood pressure has been very augusto.? A stat CT? and stat MRI showed?There is an acute infarct within the PICA territory of the inferior left cerebellar hemisphere associated with mild local mass effect and no hemorrhagic transformation. No significant fourth ventricular effacement at this time. Time of oset is not clear however dizziness her clearly documented in nursing triage note at 22.30 and later dizziness also documented by ED physician.. At that time of my evaluation that was nearly 8 hours? later and therefore would not have qualified for tPA at that time. Hospital course: 1/Acute Stroke involving PICA territory resulting in dizziness and unsteadiness-- seen on both CT and MRI. She was not in the window for tPA. She was medically treated with ASA (antiplatlets), No statin because of allergy and blood pressure control. 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 ? She has been followed by PT and OT.? 2. UTI--uncomplicated, treated with Ceftriaxone for 3 days. 3.HTN--BP was initially very high and has fluctuated, medication have been adjusted to? to Lisinopril 10 mg daily, at home 2.5 and started on Norvasc 5 mdaily. ? 4. Diabetes--continue Glipizide and metfromin in the hospital and to resume 70/30 upon discharge.? 5. Abdominal pain..no acute finding on CT, US no acute finding, pain is better, possible d/t constipation. Given bowel regimen including, mom, miralax and enema. Dispos: Probable home by tomorrow? if not the then acute rehab Time Spent with Patient Time attestation: Total time spent providing and/or coordinating discharge services: Discharge coordination time: Greater than 30 minutes Quality: Stroke Does the patient have a stroke diagnosis?: No Physical Exam Vital Signs: Vital Signs: Last Vital Signs Temp 97.4 F 09/09/21 07:01 Pulse 96 09/09/21 09:19 Resp 18 09/09/21 07:01 BP 180/77 H 09/09/21 08:51 Pulse Ox 97 09/09/21 07:01 Body Mass Index 30.9 General: AO X 3, no acute distress Resp: CTA bilateral CVS: S1,S2,RRR GI: +BS, NT, no distention, Skin: No rash Neuro: motor grossly intact Psych: appropriate affect DS: Data Data Completed and Pending Labs on day of discharge: Laboratory Results - last 24 hr 09/08/21 09/08/21 09/08/21 11:22 16:22 20:01 POC Glucose 182 H 139 H 146 H 09/09/21 09/09/21 07:11 11:03 POC Glucose 150 H 197 H Preliminary micro results at discharge 09/05/21 23:19 Blood Culture - Preliminary Blood - Venous No growth after 48 hours. 09/05/21 23:19 Blood Culture - Preliminary Blood - Venous No growth after 48 hours. Discharge Plan Discharge Anticipated Discharge Date/Time: 09/09/21 11:37 Patient Disposition: Home Health Service Discharge Diagnosis: Acute cerebella stroke, UTI, Referrals: Physician,Unknown J [Primary Care Provider] - 1 Week Discharge Medications: New lisinopril 10 mg Tablet 10 mg PO DAILY Qty: 30 RF: 0 aspirin 81 mg capsule 81 mg PO DAILY Qty: 60 RF: 0 Continued dicyclomine 20 mg tablet 20 mg PO TID Qty: 270 RF: 0 cholecalciferol (vitamin D3) [Vitamin D3] 25 mcg (1,000 unit) Tablet 25 mcg PO DAILY RF: 0 Co Q-10 1 tab PO DAILY RF: 0 glipizide 5 mg tablet extended release 24hr 5 mg PO BID RF: 0 metformin 500 mg tablet extended release 24 hr 1,000 mg PO BID RF: 0 insulin asp prt-insulin aspart 100 unit/mL (70-30) insulin pen 20 unit subcut DAILY RF: 0 (DME) OneTouch Ultra Blue Test Strip Strip See Rx Instructions ea Not Applicable BID Qty: 10 RF: 0 Discontinued lisinopril 2.5 mg tablet 2.5 mg PO DAILY Qty: 90 RF: 4 Discharge Orders: Discharge Order (Routine); Ordered 09/09/21 Ordered By: Michael Vail Diet: advance to usual diet and diabetic diet Activity on Discharge: As tolerated Stand Alone Forms: Patient Portal Discharge page Care Plan Goals: Full recovery from stroke Health Concerns: Acute cerebellar stroke, Plan of Treatment: Take all your medications as directed and follow up with your primary care doctor within a week. Specifically take aspirin, and your blood pressure medication including lisinopril and Norvasc. Assessment: As tolerated
[2021-09-09] MEDS: Insulin Lispro 100 UNIT/ML 3 ML VIAL SUBCUT (11:43)
--- NOTE | 2021-09-09 11:43 | P.F2F_ITS ---
Service Date Service Date: 09/09/21 Reasons for Services Reason for [facility]: CV/CP assess and/or care and neurological assessment Reason for physical therapy: home safety and mobility, therapeutic exercises and gait/transfer training Homebound: Leaving the home is medically contraindicated at this time without the asist of a device and/or another person due th the listed conditions above and below. Homebound supporting statement: homebound due to acute stroke with ataxia, dizziness afecting gait and therefore needs the assistance of another person Certification: Based on the above findings, I certify that this patient is confined to the home and needs intermittent [facility] care, physical therapy and/or speech therapy, or continues to need occupational therapy. The patient is under my care, and I have initiated the establishment of the plan of care. The patient will be followed by a physician who will periodically review the plan of care.
--- NOTE | 2021-09-09 12:39 | MHC.CM.PN ---
Addendum entered by Windy Castanon 09/09/21 14:33: ALSO ORDERED [facility] AT IN Original Note: PT IS MEDICALLY CLEARED TO IN TODAY. PER PT NOTE, PT HAS IMPROVED AND THE RECOMMENDATION IS NOW HOME WITH SERVICES. CM MET WITH PT AND FAMILY MEMBERS WHO WERE AT BEDSIDE. PT IS AWARE SHE WILL BE GOING HOME TODAY WITH SERVICES. PER DISCUSSION, REFERRAL MADE TO [facility] FOR HOME PT AND SAFETY EVAL. FAMILY TO TRANSPORT
[2021-09-09] MEDS: Mineral OiL enema 133 ML ENEMA PR (12:40)
== END 2021-09-09 15:34 | disposition home health service (06) | DRG 65 ==
LOC: HO.ED 09-06 02:17 → HO.EDOVER 09-06 03:05 → HO.S3 09-07 12:34
PROVIDERS: Admitting Provider Hospitalist; Emergency Provider Student in an Organized Health Care Education/Training Program; PCP Internal Medicine; Visit Provider Internal Medicine
DX: I63.532 Cerebral infarction due to unspecified occlusion or stenosis of left posterior cerebral artery (principal); N39.0 Urinary tract infection, site not specified; I10 Essential (primary) hypertension; R33.9 Retention of urine, unspecified; E78.5 Hyperlipidemia, unspecified; R42 Dizziness and giddiness; I16.0 Hypertensive urgency; E11.42 Type 2 diabetes mellitus with diabetic polyneuropathy; Z20.822 Contact with and (suspected) exposure to COVID-19; Z79.4 Long term (current) use of insulin; Z79.82 Long term (current) use of aspirin; Z79.899 Other long term (current) drug therapy
CPT/HCPCS: 0241U; 36415; 70450; 70496; 70498; 70551; 71045; 74177; 76705; 80048; 80053; 80061; 81001; 82947; 83605; 85025; 87040; 87086; 93306; 96361; 96365; 96375; 97112; 97116; 97162; 97166; 97535; 99285; J0696; J2270; J2405; J2543; J3010; Q9967

== ENCOUNTER 2021-09-24 08:00 | Outpatient (REF) | payer MEDICARE, OTHER, SELFPAY ==
[2021-09-24 11:27] LABS: MANUAL DIFF FLAG NO
[2021-09-24 11:35] LABS: Basophils Absolute Auto 0.1 X10*3/uL (0.0-0.2); Basophils Percent Auto 0.8 % (0-2); Eosinophils Absolute Auto 0.2 X10*3/uL (0.0-0.4); Eosinophils Percent Auto 2.9 % (0-4); Hematocrit 34.8 % (37.0-47.0); Hemoglobin 11.3 g/dl (12.0-16.0); Imm Gran Abs Auto 0.04 X10*3/uL (0.00-0.03); Imm Gran Pct Auto 0.5 % (0.0-0.4); Lymphocytes Absolute Auto 2.1 X10*3/uL (1.2-4.9); Lymphocytes Percent Auto 25.2 % (20-40); Mean Corpuscular HGB Conc 32.5 g/dl (31.0-35.0); Mean Corpuscular Hemoglobin 27.9 pg (27.0-33.0); Mean Corpuscular Volume 85.9 fL (80.0-98.0); Mean Platelet Volume 11.8 fL (9.4-12.3); Monocytes Absolute Auto 0.9 X10*3/uL (0.1-1.2); Monocytes Percent Auto 11.3 % (2-11); Neutrophils Absolute Auto 4.92 x10*3/uL (2.0-8.3); Neutrophils Percent Auto 59.3 % (45-73); Platelet Count 356 X10*3/uL (160-400); Red Blood Count 4.05 X10*6/uL (4.20-5.50); Red Cell Distribution Width 13.8 % (11.0-16.0); White Blood Count 8.3 X10*3/uL (4.8-10.8)
[2021-09-24 11:48] LABS: Alanine Aminotransferase 14 U/L (0-31); Aspartate Amino Transferase 15 U/L (5-31); Cholesterol 226 mg/dL; HDL Cholesterol 50 mg/dL; Iron 87 mcg/dL (30-160); LDL Cholesterol Calculated 136 mg/dl; Percent Iron Saturation 25 % (15-50); Total Iron Binding Capacity 346 mcg/dL (228-428); Triglycerides 202 mg/dL; Unsaturated Iron Binding 259 ug/dL
[2021-09-24 11:56] LABS: Estimated Average Glucose 206 mg/dL; Hemoglobin A1c % 8.8 %
[2021-09-24 12:04] LABS: Creatinine Urine 28.21 mg/dL; Protein/Creatinine Ratio, Ur 0.85 (<0.2); Total Protein Urine Random 24 mg/dL (<12)
[2021-09-24 12:30] LABS: Alanine Aminotransferase 14 U/L (0-31); Anion Gap 16 (12-20); Aspartate Amino Transferase 16 U/L (5-31); Blood Urea Nitrogen 24 mg/dL (9-16); Calcium 9.5 mg/dL (8.4-10.2); Carbon Dioxide 22 mmol/L (22-29); Chloride 100 mmol/L (96-108); Estimated Glomerular Filt Rate 49; Glucose Random 207 mg/dL (60-115); Potassium 5.3 mmol/L (3.3-5.1); Sodium 133 mmol/L (135-145)
== END 2021-09-24 08:01 | disposition home or self-care (01) ==
LOC: HO.HMGCLDS 08:00
PROVIDERS: Absent Provider Internal Medicine; PCP Internal Medicine; Visit Provider Physician Assistant
DX: E11.40 Type 2 diabetes mellitus with diabetic neuropathy, unspecified (principal); D64.9 Anemia, unspecified; E55.9 Vitamin D deficiency, unspecified; E78.5 Hyperlipidemia, unspecified; I10 Essential (primary) hypertension; E89.40 Asymptomatic postprocedural ovarian failure; Z86.73 Personal history of transient ischemic attack (TIA), and cerebral infarction without residual deficits
CPT/HCPCS: 36415; 80048; 80061; 82043; 82306; 83036; 83540; 84156; 84450; 84460; 85025

== ENCOUNTER → 2021-10-22 13:50 | Outpatient (BNVA) | payer MEDICARE, OTHER, SELFPAY | PROVIDERS: PCP Internal Medicine; Referring Provider Internal Medicine; Visit Provider Internal Medicine | DX: I35.0 Nonrheumatic aortic (valve) stenosis (principal); I63.9 Cerebral infarction, unspecified; I10 Essential (primary) hypertension; E11.8 Type 2 diabetes mellitus with unspecified complications; R07.2 Precordial pain | CPT/HCPCS: 93005; 99202 ==

== ENCOUNTER → 2021-11-04 09:21 | Outpatient (REF) | payer MEDICARE, OTHER, SELFPAY ==
--- NOTE | ~2021-11-04 | NM_ITS ---
Myocardial perfusion study Indication: Precordial pain to evaluate for myocardial ischemia Technique: The patient was brought in for a Lexiscan perfusion study on 11/04/2021. Patient performed low-level exercise and was injected 0.4 mg of Lexiscan intravenously. Within a minute of injection, 30 mCi of sestamibi was given intravenously. Images were obtained using the SPECT gamma camera interlaced with the gating device. Images were obtained in supine position. Resting perfusion study was performed on 11/05/2021. Patient was administered 30 mCi of sestamibi intravenously at rest. Images were then obtained in supine position. Images obtained with and without CT attenuation. Total DLP 107 mGy-cm. Images were processed with the software and compared side to side in short axis, horizontal long axis and vertical long axis views. Findings: The stress perfusion study showed non attenuated images show mildly to moderately reduced uptake in the inferolateral and lateral wall of the LV myocardium. Remainder of the LV myocardium is normally perfused. Attenuation corrected images show mildly reduced uptake in the basal and mid inferolateral wall of the LV myocardium.. The gated study shows low normal LV systolic function with calculated LVEF of 62%. LV cavity is normal in size. The gated study shows reduced wall thickening and contraction of basal and mid inferolateral segments. Resting study shows no change in perfusion pattern compared to stress perfusion study. Gating at rest reveals basal and mid lateral wall motion abnormality with ejection fraction at 53%. The findings are consistent with no reversible defect suggestive of ischemia but fixed basal and mid inferolateral defect most suggestive of nontransmural infarct. NM/NM cardiolite stress test Impression: 1. Myocardial perfusion imaging study shows no clear reversible defect. Fixed basal and mid inferolateral defect suggestive nontransmural infarct 2. Gated LVEF is 52% 3. Transient ischemic dilatation not present EKG is nondiagnostic for ischemia
--- NOTE | 2021-11-04 09:25 | CA_ITS ---
Acquisition Time: 2021-11-04 10:41:06 Total Exercise Time: 00:02:00 Test Indications: CP, SOB Medications: SEE CHART Protocol: LEXISCAN Max HR: 134 BPM 99% of Pred: 135 BPM Max BP: 184/070 mmHG Max Work Load: 1.0 METS Pharmacological stress test with Lexiscan injection, while sitting and kicking her legs, without anginal symptoms, with nausea and vomiting post injection then bradycardia with second degree heart block for approximately 30 sec then sinus tachycardia, with elevated BP at baseline and no significant change post injection, with EKG abnormality at baseline which is similar to EKG done in office that shows lateral ischemia, with more pronounced ST changes post injection. In recovery she was treated with Aminophylline 75mg IVP to reverse Lexiscan. Recovered for 22 minutes and remained stable, no chest pain, no further arrythmia. EKG tracings and report reviewed with Dr West. Referred By: Josep Hunter Overread By: JESSICA MAY
--- NOTE | 2021-11-04 09:25 | HM_ITS ---
Total monitoring time 9 days Underlying rhythm is sinus. Average 100/Min. Minimum 85/Min. Maximum 158/Min. About 40% the time, rate>100/Min. Mobitz 1 second-degree heart block during sleep hours noted. Occasional PVCs and PACs but minimal burden. One episode of broad complex tachycardia at 158/Min, likely sinus tachycardia with aberrant conduction. No patient events. MTDD
== END ==
LOC: HO.CARD 09:21
PROVIDERS: PCP Internal Medicine; Visit Provider Internal Medicine
DX: R07.2 Precordial pain (principal); I20.9 Angina pectoris, unspecified; I48.0 Paroxysmal atrial fibrillation; I63.9 Cerebral infarction, unspecified
CPT/HCPCS: 78452; 93017; 93246; A9500; J0280; J2785

== ENCOUNTER 2021-11-14 10:40 | Inpatient (IN) | payer MEDICARE, OTHER, SELFPAY ==
[2021-11-14] VITALS (34 sets, daily range): BP systolic 119–190; BP diastolic 36–90; PULSE 82–112; RESP 12–23; TEMP 36.5–37; O2SAT 93–100; BMI 31.1; BMI 29.9; BMI 30.4
--- NOTE | ~2021-11-14 | MR_ITS ---
EXAMINATION: MR BRAIN WITHOUT CONTRAST CLINICAL INFORMATION: Rule out cerebellar stroke. COMPARISON: Head CTA September 06, 2021. TECHNIQUE: Multiplanar, multisequence imaging of the brain was performed without intravenous contrast. FINDINGS: There is a small focus of acute infarction within the left paramedian inferior cerebellum involving the tonsil. There is chronic infarction within the left inferior cerebellum involving the posterior inferior cerebellar artery vascular territory. As seen previously, the cervical segment and proximal intradural segment of the left vertebral artery appears occluded with some reconstitution more distally likely from backfilling. There is no mass, hemorrhage, or extra-axial fluid collection. Background changes of chronic microangiopathy are noted within the white matter. There is chronic lacunar infarction in the right cerebellum. The ventricles and sulci are commensurate. There is a small amount of fluid in the right mastoid. Scattered paranasal sinus mucosal thickening is noted. In addition to chronic opacification of the left sphenoid. There are bilateral lens replacements. MR/MR head/brain wo con IMPRESSION: Small focus of acute infarction in the paramedian left inferior cerebellum involving the tonsil. Chronic left cerebellar infarct also demonstrated in the setting of chronic left vertebral artery occlusion. No hemorrhage. No mass. Chronic lacunar infarcts in the right basal ganglia and background changes of chronic microangiopathy.
--- NOTE | ~2021-11-14 | CT_ITS ---
EXAMINATION: CT HEAD WITHOUT CONTRAST CLINICAL INFORMATION: Dizziness. COMPARISON: None TECHNIQUE: Contiguous axial imaging was performed from the skull base to vertex without intravenous administration of contrast. This CT examination was performed using dose optimization techniques as appropriate, variously including the following: *Automated exposure control *Adjustment of mA and/or kV according to patient size (this includes techniques or standardized protocols for targeted exams where dose is matched to indication/reason for exam; i.e. extremities or head) *Use of iterative reconstruction technique DLP: 1613 mGy-cm FINDINGS: There is no evidence of acute intracranial hemorrhage or territorial infarction. No abnormal mass effect or midline shift is seen. Steven to white matter differentiation is well preserved. No extra-axial fluid collections are identified. The lateral ventricles are symmetrical in size and configuration without enlargement. The periventrical white matter appears normal. The osseous structures and soft tissues are normal. There is focal mucosal thickening left sphenoid sinus. Rest the paranasal sinuses and mastoid air cells are well-aerated. CT/CT head/brain wo con IMPRESSION: No acute intracranial process seen. Mild mucoperiosteal thickening left sphenoid sinus.
--- NOTE | ~2021-11-14 | XR_ITS ---
EXAMINATION: XR CHEST CLINICAL INFORMATION: Dizziness COMPARISON: February 21, 2019 and October 09, 2015 TECHNIQUE: AP portable view of the chest was obtained. FINDINGS: There is some scarring seen at the left lung base. No definite acute parenchymal disease, pneumothorax, or pleural effusion is appreciated. Heart normal size. No evidence of pulmonary edema. Mildly increased interstitial markings are present. No confluent pneumonitis. XR/XR chest 1V IMPRESSION: No acute parenchymal disease.
--- NOTE | ~2021-11-14 | CT_ITS ---
EXAMINATION: CT HEAD WITHOUT CONTRAST CLINICAL INFORMATION: Stroke. Follow-up stroke. COMPARISON: CT head 11/14/2021. MRI brain 11/14/2021. TECHNIQUE: Contiguous axial imaging was performed from the skull base to vertex without intravenous administration of contrast. This CT examination was performed using dose optimization techniques as appropriate, variously including the following: *Automated exposure control *Adjustment of mA and/or kV according to patient size (this includes techniques or standardized protocols for targeted exams where dose is matched to indication/reason for exam; i.e. extremities or head) *Use of iterative reconstruction technique DLP: 614 mGy-cm FINDINGS: Chronic appearing encephalomalacia is present in the inferior left cerebellar hemisphere. Focal hypodensity is noted within the superior aspect of the left cerebellar tonsil corresponding to the area of acute infarct on the comparison MRI of 11/14/2021. Elsewhere, mild diffuse commensurate prominence of ventricles and sulci is noted along with mild subcortical and periventricular white matter patchy hypodensities. No intracranial hemorrhage, or tumors are noted. Bilateral ocular lens extractions are visualized. No significant opacification of the paranasal sinuses, mastoid air cells and middle ear cavities. CT/CT head/brain wo con IMPRESSION: *Acute infarct within the inferior left cerebellar hemisphere within the left cerebellar tonsil unchanged in extent compared with MRI of the brain 11/14/2021. No interval new acute infarcts. No intracranial hemorrhage. *Chronic infarct within the inferior left cerebellar hemisphere within the territory of the posterior inferior cerebellar artery. *Mild chronic microangiopathic ischemic changes.
--- NOTE | ~2021-11-14 | CT_ITS ---
EXAMINATION: CT ABDOMEN AND PELVIS WITHOUT CONTRAST CLINICAL INFORMATION: Lower quadrant pain. Vomiting. COMPARISON: CT abdomen and pelvis with contrast 09/06/2021 and 02/21/2019 TECHNIQUE: Multidetector volumetric imaging was performed from the superior aspect of the liver through the pubic symphysis. Sagittal and coronal reformatted images were obtained on the technologist's workstation. This CT examination was performed using dose optimization techniques as appropriate, variously including the following: *Automated exposure control *Adjustment of mA and/or kV according to patient size (this includes techniques or standardized protocols for targeted exams where dose is matched to indication/reason for exam; i.e. extremities or head) *Use of iterative reconstruction technique DLP: 1013 mGy-cm FINDINGS: LUNG BASES: 2 small pleural-based nodules on left under 5 mm, stable since 02/21/2019 consistent with benign nodularity. No additional follow-up required, Fleischner guidelines followed. LIVER, GALLBLADDER, AND BILIARY TREE: The liver is normal in size, shape, and attenuation. No focal hepatic lesion or biliary ductal dilatation is present. There are some fine dependent gravel-like calculi in the gallbladder similar to prior exam. No gallbladder wall thickening or pericholecystic inflammatory changes. Common duct unremarkable. PANCREAS: Mildly atrophic. No ductal dilatation or peripancreatic inflammatory changes. SPLEEN: Normal in size and homogeneous. Small stable splenule left upper quadrant approximately 1 cm. ADRENAL GLANDS: Unremarkable. KIDNEYS AND URETERS: The kidneys are symmetric and normal in thickness. No hydronephrosis, hydroureter, perinephric stranding, or calculi. There are fine bilateral renal vascular calcifications. BLADDER: The urinary bladder is prominently distended. No focal wall thickening or bladder calculus or bladder diverticulum. GASTROINTESTINAL TRACT: No bowel obstruction or focal inflammatory changes in bowel or mesentery. No pneumatosis or free air. Appendix not seen with certainty. No inflammatory changes around the appendix and terminal ileum. No ascites or fluid collection. ABDOMINAL WALL: No significant hernia is appreciated. LYMPH NODES: No lymphadenopathy. VASCULAR: Unremarkable. PELVIC VISCERA: Unremarkable. OSSEOUS STRUCTURES: Unremarkable. CT/CT abdomen pelvis wo con IMPRESSION: 1. No inflammatory changes in abdomen or pelvis. No bowel obstruction or fluid collection. 2. Small gravel-like gallstones. No gallbladder wall thickening, pericholecystic inflammatory changes, or ductal dilatation. 3. Urinary bladder prominently distended. No focal wall thickening or pelvic mass. Upper tracts unremarkable. Fleischner guidelines were followed.
--- NOTE | 2021-11-14 11:37 | ECG_ITS ---
Test Reason : STROKE Blood Pressure : / mmHG Vent. Rate : 094 BPM Atrial Rate : 094 BPM P-R Int : 178 ms QRS Dur : 082 ms QT Int : 360 ms P-R-T Axes : 078 027 082 degrees QTc Int : 450 ms Normal sinus rhythm Right atrial enlargement Nonspecific ST and T wave abnormality Abnormal ECG When compared with ECG of 05-SEP-2021 22:58, T wave inversion less evident in Lateral leads Referred By: Isidra Wayne Electronically Signed By:DAYRON SOSA
[2021-11-14 12:04] LABS: MANUAL DIFF FLAG NO
[2021-11-14 12:12] LABS: Appearance Urine CLEAR; Color Urine STRAW; Glucose Urine UA 250 MG/DL (NEG); Leukocyte Esterase Urine TRACE (NEG); Nitrite Urine NEG (NEG); UACC Culture Trigger YES; Urine Blood NEG (NEG); Urine Ketones 5 MG/DL (NEG); Urine Protein NEG (NEG-TRACE)
[2021-11-14 12:19] LABS: Basophils Absolute Auto 0.1 X10*3/uL (0.0-0.2); Basophils Percent Auto 0.6 % (0-2); Eosinophils Absolute Auto 0.2 X10*3/uL (0.0-0.4); Eosinophils Percent Auto 1.3 % (0-4); Hematocrit 35.9 % (37.0-47.0); Hemoglobin 11.9 g/dl (12.0-16.0); Imm Gran Abs Auto 0.06 X10*3/uL (0.00-0.03); Imm Gran Pct Auto 0.4 % (0.0-0.4); Lymphocytes Absolute Auto 2.2 X10*3/uL (1.2-4.9); Lymphocytes Percent Auto 15.8 % (20-40); Mean Corpuscular HGB Conc 33.1 g/dl (31.0-35.0); Mean Corpuscular Hemoglobin 28.6 pg (27.0-33.0); Mean Corpuscular Volume 86.3 fL (80.0-98.0); Mean Platelet Volume 11.3 fL (9.4-12.3); Monocytes Absolute Auto 1.3 X10*3/uL (0.1-1.2); Monocytes Percent Auto 9.4 % (2-11); Neutrophils Absolute Auto 10.1 x10*3/uL (2.0-8.3); Neutrophils Percent Auto 72.5 % (45-73); Platelet Count 352 X10*3/uL (160-400); Red Blood Count 4.16 X10*6/uL (4.20-5.50); Red Cell Distribution Width 13.9 % (11.0-16.0)
[2021-11-14 12:22] LABS: RBC Urine 0-2 /HPF (0); Squamous Epithelial Cell Urine 1+ /LPF
[2021-11-14 12:22] LABS: Alanine Aminotransferase 24 U/L (0-31); Albumin Level 4.5 g/dL (3.5-5.0); Alkaline Phosphatase 61 U/L (39-117); Anion Gap 13 (12-20); Aspartate Amino Transferase 18 U/L (5-31); Bilirubin Direct 0.3 mg/dL (0.0-0.5); Bilirubin Total 0.8 mg/dL (0.0-1.0); Blood Urea Nitrogen 16 mg/dL (9-16); Calcium 10.1 mg/dL (8.4-10.2); Carbon Dioxide 26 mmol/L (22-29); Chloride 101 mmol/L (96-108); Estimated Glomerular Filt Rate 45; Glucose Random 209 mg/dL (60-115); Lipase 19 U/L (8-78); Potassium 4.4 mmol/L (3.3-5.1); Sodium 136 mmol/L (135-145); Total Protein 7.7 g/dL (6.5-8.0)
[2021-11-14 12:31] LABS: B Type Natriuretic Peptide 814 pg/mL (<100)
[2021-11-14 12:34] LABS: Troponin-I High Sensitivity 707.3 ng/L (<3.5-17.0)
--- NOTE | 2021-11-14 12:42 | ED_ITS ---
HPI - Dizziness General Chief Complaint: Dizziness Stated Complaint: DIZZY W/VOMITING Time Seen by Provider: 11/14/21 11:36 Source: patient and EMS Mode of arrival: EMS Limitations: no limitations History of Present Illness HPI Narrative: 86-year-old female came in by EMS for evaluation of feeling dizzy. Patient woke up this morning around 07:45 was unsteady feeling dizzy, patient also felt lower abdominal pain with vomiting. Patient had similar presentation 2 months ago and ended up to have cerebellar stroke. At this point patient was rushed to MRI of the head, the MRI was reviewed by Dr. Corado who thought that the patient has hyperacute cerebellar stroke and should get tPA therapy as soon as she come back from the MRI I discussed with the patient the risk of giving tPA especially patient is slightly out of window patient agreed and signed consent, tPA will be administrated as per Dr. Corado recommendation. Patient had a history of appendectomy, also recent admission for small-bowel obstruction. Related Data Home Medications Medication Instructions Recorded Confirmed blood sugar diagnostic #10 ea 02/13/21 10/22/21 insulin aspar prot-insulin aspart 20 unit SUBCUT DAILY 02/13/21 10/22/21 100 unit/mL (70-30) subcutaneous pen metformin 500 mg tablet,extended 1,000 mg PO BID 02/13/21 10/22/21 release 24 hr Co Q-10 1 tab PO DAILY 09/06/21 10/22/21 cholecalciferol (vitamin D3) 25 25 mcg PO DAILY 09/06/21 10/22/21 mcg (1,000 unit) tablet (Vitamin D3) docusate sodium 100 mg capsule 100 mg PO BID 09/19/21 10/22/21 (Colace) glipizide 5 mg tablet, extended 10 mg PO DAILY tab 09/19/21 10/22/21 release 24 hr Previous Rx's Medication Instructions Recorded aspirin 81 mg capsule 81 mg PO DAILY #60 cap 09/09/21 polyethylene glycol 3350 17 17 g PO DAILY PRN #238 g 09/09/21 gram/dose oral powder (Miralax) amlodipine 5 mg tablet (Norvasc) 5 mg PO DAILY #30 tab 10/09/21 lisinopril 2.5 mg tablet 2.5 mg PO DAILY #30 tab 10/10/21 alirocumab 75 mg/mL subcutaneous 75 mg SUBCUT Q2W #2 ml 10/22/21 pen injector (Praluent Pen) Allergies Allergy/AdvReac Type Severity Reaction Status Date / Time regadenoson [From Lexiscan] AdvReac Severe brief Verified 11/05/21 12:47 second degree heart block type 2 lovastatin AdvReac Unknown muscle pain Verified 10/22/21 14:06 Review of Systems Review of Systems: All other systems are reviewed and are negative Constitutional: Reports as per HPI and Reports no additional constitutional complaints Eyes: Reports as per HPI and Reports no additional eye complaints Reports system reviewed and no additional complaints, except as documented Cardiovascular: Reports as per HPI and Reports no additional cardiovascular complaints Respiratory: Reports as per HPI and Reports no additional respiratory complaints Gastrointestinal: Reports as per HPI and Reports no additional gastrointestinal complaints Genitourinary: Reports no additional female genitourinary complaints Musculoskeletal: Reports no additional musculoskeletal complaints Skin/Breast: Reports system reviewed and no additional complaints, except as docu Psychiatric: Reports no additional psychiatric complaints Endocrine: Reports no additional endocrine complaints Hematologic/Lymphatic: Reports no additional hematologic/lymphatic complaints Allergic/Immunologic: Reports no additional allergic/immunologic complaints Reports system reviewed and no additional complaints, except as documented and Reports Abnormal speech present [facility] Past Medical History Medical History Anemia Dyslipidemia Essential hypertension Essential hypertension History of cerebellar stroke Irritable bowel syndrome with constipation Moderate aortic stenosis Surgical menopause Systolic ejection murmur Type 2 diabetes mellitus with peripheral neuropathy Vitamin D deficiency Surgical History History of appendectomy Hx of cataract surgery S/P partial hysterectomy Family History Family History Father No problems noted. Mother No problems noted. Social History Social History Household Members: Family Housing: Condominium Alcohol intake: never Patient Tobacco Use Status: Never used Tobacco Use of substances other than those prescribed or required for medical reasons: No Advance Directives: No Advance Directives Information Provided: Yes Physical Exam Vital Signs: Vital Signs: Last Vital Signs Temp 97.9 F 11/14/21 10:43 Pulse 91 11/14/21 15:54 Resp 23 H 11/14/21 15:54 BP 167/84 H 11/14/21 15:54 Pulse Ox 98 11/14/21 15:54 BMI result Body Mass Index 29.9 Vital signs have been reviewed as appeared to be correct. Blood pressure normal. Heart rate normal. Respiration rate normal. Temperature normal. Oxygen saturation normal. Appearance: Alert. Oriented X3. No acute distress. Head: Normal external exam. Normocephalic. Atraumatic. No Dove signs noted. No raccoon eyes noted Eyes: PERRLA. EOMI. Conjunctiva and sclera normal. Eyelids normal. ENT: TM's Normal. Pharynx normal. Uvula midline. Moist mucous membranes. No trismus noted. No drooling noted. No muffled voice noted. Neck: Normal inspection. Neck supple. FROM. No adenopathy. Thyroid Normal. No meningeal signs. No neck mass noted. CVS: Normal heart rate and rhythm. Heart sound normal. No murmurs noted. Pulses normal throughout. Respiratory: No respiratory distress. Painless inspiration. Breath sounds normal. No wheezes/rales/rhonchi noted. Chest nontender. No accessory muscle usage noted or decreased air movement noted. Abdomen: Soft, slightly distended, mild diffuse tenderness, no guarding, no rebound tenderness. Bowel sounds normal in all 4 quadrants. No distention noted. No organomegaly noted. No visible injury noted. Back: No CVA tenderness. Full range of motion noted. Skin: Skin warm and dry. Normal skin color. Normal skin turgor. No ra shes/lesions/lacerations noted. Extremities: No lower extremity edema. Extremities exhibit normal range of motion. Extremities nontender. Neuro: Oriented X 3. Cranial nerve exam: II-XII are grossly intact No motor deficit. No sensory deficit. Reflexes normal. NIH Stroke Scale Level of Consciousness: Alert Level of Consciousness Questions: Answers both questions correctly Level of Consciousness Commands: Performs both tasks correctly Best Gaze: Normal Visual: No visual loss Facial Palsy: Normal Motor Arm (Right): No drift Motor Arm (Left): No drift Motor Leg (Right): No drift Motor Leg (Left): No drift Limb Ataxia: Absent Sensory: Normal Best Language: No aphasia Dysarthia: Normal Extinction and Inattention: No abnormality Score: 0 Course Course Course Narrative: 11:10 patient was seen by me. 11:46 patient had the MRI. 12:29 pm received a call from Dr. Corado that the MRI was reviewed by him personally and recommended to give tPA as soon as patient come back from the MRI knowing patient is slightly out of the window. 12:48 pm patient received tPA in the ED. 13:00 patient is awake, alert, oriented. 13:00 repeat exam is unremarkable with no change no sign of intracranial bleed. 14:25 patient is awake, alert, oriented, tolerated tPA with no problem. MDM - Dizziness Medical Records Attestation: I reviewed the patient's medical records. Lab Data Attestation: I reviewed the patient's lab results. Result diagrams: 11/14/21 11:57 11/14/21 11:57 Labs: Lab Results 11/14/21 11/14/21 11/14/21 Range/Units 11:56 11:57 11:57 WBC 14.0 H (4.8-10.8) X10*3/uL RBC 4.16 L (4.20-5.50) X10*6/uL Hgb 11.9 L (12.0-16.0) g/dl Hct 35.9 L (37.0-47.0) % MCV 86.3 (80.0-98.0) fL MCH 28.6 (27.0-33.0) pg MCHC 33.1 (31.0-35.0) g/dl RDW 13.9 (11.0-16.0) % Plt Count 352 (160-400) X10*3/uL MPV 11.3 (9.4-12.3) fL Immature Gran % (Auto) 0.4 (0.0-0.4) % Neut % (Auto) 72.5 (45-73) % Lymph % (Auto) 15.8 L (20-40) % [place] % (Auto) 9.4 (2-11) % Eos % (Auto) 1.3 (0-4) % Baso % (Auto) 0.6 (0-2) % Lymph # (Auto) 2.2 (1.2-4.9) X10*3/uL [place] # (Auto) 1.3 H (0.1-1.2) X10*3/uL Eos # (Auto) 0.2 (0.0-0.4) X10*3/uL Baso # (Auto) 0.1 (0.0-0.2) X10*3/uL Abs Immat Gran (auto) 0.06 H (0.00-0.03) X10*3/uL Absolute Neuts (auto) 10.1 H (2.0-8.3) x10*3/uL Absolute Nucleated RBC 0.000 (0.0-0.012) X10*3/uL Nucleated RBC % (auto) 0.0 (0.0-0.2) /100WBC Sodium 136 (135-145) mmol/L Potassium 4.4 (3.3-5.1) mmol/L Chloride 101 (96-108) mmol/L Carbon Dioxide 26 (22-29) mmol/L Anion Gap 13 (12-20) BUN 16 (9-16) mg/dL Creatinine 1.14 (0.5-1.4) mg/dL Estim Creat Clear Calc 36.0 Estimated GFR 45 Random Glucose 209 H (60-115) mg/dL Calcium 10.1 D (8.4-10.2) mg/dL Total Bilirubin 0.8 (0.0-1.0) mg/dL Direct Bilirubin 0.3 (0.0-0.5) mg/dL AST 18 (5-31) U/L ALT 24 (0-31) U/L Alkaline Phosphatase 61 (39-117) U/L Troponin I High Sens (<3.5-17.0) ng/L B-Natriuretic Peptide (<100) pg/mL Total Protein 7.7 (6.5-8.0) g/dL Albumin 4.5 (3.5-5.0) g/dL Lipase 19 (8-78) U/L Urine Color STRAW Urine Appearance CLEAR Urine pH 6.0 (5.0-8.0) Ur Specific [place] 1.010 (1.005-1.025) Urine Protein NEG (NEG-TRACE) MG/DL Urine Glucose (UA) 250 H (NEG) MG/DL Urine Ketones 5 (NEG) MG/DL Urine Blood NEG (NEG) Urine Nitrite NEG (NEG) Ur Leukocyte Esterase TRACE H (NEG) Urine RBC 0-2 (0) /HPF Urine WBC 1-4 (0-4) /HPF Ur Squamous Epith Cells 1+ /LPF Urine Bacteria NONE /LPF 11/14/21 11/14/21 Range/Units 11:57 11:57 WBC (4.8-10.8) X10*3/uL RBC (4.20-5.50) X10*6/uL Hgb (12.0-16.0) g/dl Hct (37.0-47.0) % MCV (80.0-98.0) fL MCH (27.0-33.0) pg MCHC (31.0-35.0) g/dl RDW (11.0-16.0) % Plt Count (160-400) X10*3/uL MPV (9.4-12.3) fL Immature Gran % (Auto) (0.0-0.4) % Neut % (Auto) (45-73) % Lymph % (Auto) (20-40) % [place] % (Auto) (2-11) % Eos % (Auto) (0-4) % Baso % (Auto) (0-2) % Lymph # (Auto) (1.2-4.9) X10*3/uL [place] # (Auto) (0.1-1.2) X10*3/uL Eos # (Auto) (0.0-0.4) X10*3/uL Baso # (Auto) (0.0-0.2) X10*3/uL Abs Immat Gran (auto) (0.00-0.03) X10*3/uL Absolute Neuts (auto) (2.0-8.3) x10*3/uL Absolute Nucleated RBC (0.0-0.012) X10*3/uL Nucleated RBC % (auto) (0.0-0.2) /100WBC Sodium (135-145) mmol/L Potassium (3.3-5.1) mmol/L Chloride (96-108) mmol/L Carbon Dioxide (22-29) mmol/L Anion Gap (12-20) BUN (9-16) mg/dL Creatinine (0.5-1.4) mg/dL Estim Creat Clear Calc Estimated GFR Random Glucose (60-115) mg/dL Calcium (8.4-10.2) mg/dL Total Bilirubin (0.0-1.0) mg/dL Direct Bilirubin (0.0-0.5) mg/dL AST (5-31) U/L ALT (0-31) U/L Alkaline Phosphatase (39-117) U/L Troponin I High Sens 707.3 H* (<3.5-17.0) ng/L B-Natriuretic Peptide 814 H Cancelled (<100) pg/mL Total Protein (6.5-8.0) g/dL Albumin (3.5-5.0) g/dL Lipase (8-78) U/L Urine Color Urine Appearance Urine pH (5.0-8.0) Ur Specific [place] (1.005-1.025) Urine Protein (NEG-TRACE) MG/DL Urine Glucose (UA) (NEG) MG/DL Urine Ketones (NEG) MG/DL Urine Blood (NEG) Urine Nitrite (NEG) Ur Leukocyte Esterase (NEG) Urine RBC (0) /HPF Urine WBC (0-4) /HPF Ur Squamous Epith Cells /LPF Urine Bacteria /LPF Imaging Data Chest x-ray: Radiologist's impression: No acute thoracic disease. CT scan - abdomen: Attestation: I personally reviewed and interpreted this imaging study as follows: Radiologist's impression: 1. No inflammatory changes in abdomen or pelvis. No bowel obstruction or fluid collection. 2. Small gravel-like gallstones. No gallbladder wall thickening, pericholecystic inflammatory changes, or ductal dilatation. 3. Urinary bladder prominently distended. No focal wall thickening or pelvic mass. Upper tracts unremarkable. ? ? Brain MRI: Attestation: I personally reviewed and interpreted this imaging study as follows: Radiologist's impression: Small focus of acute infarction in the paramedian left inferior cerebellum involving the tonsil. Chronic left cerebellar infarct also demonstrated in the setting of chronic left vertebral artery occlusion. No hemorrhage. No mass. Chronic lacunar infarcts in the right basal ganglia and background changes of chronic microangiopathy. CT scan - head: Attestation: I personally reviewed and interpreted this imaging study as follows: Radiologist's impression: No acute intracranial process seen. ECG Data Attestation: I personally reviewed and interpreted this ECG as follows: Interpretation: Normal sinus rhythm at 94 beats per minute, nonspecific ST-T changes. Critical Care Time Critical Care Time Critical Care Time: Yes Total Critical Care Time: 60 Attestation: I spent 60 minutes providing critical care service to the patient, this including time spent at the bedside to evaluate the patient, reassess the patient, monitoring vital signs, review labs, and radiographic studies, counseling the patient/family, discussing the case with consultants, disposition the patient. Discharge Plan Discharge Clinical Impression: Ischemic stroke, Abdominal pain Patient Disposition: Admitted As Inpatient
--- NOTE | 2021-11-14 12:46 | P.CNNE_ITS ---
History of Present Illness Data of Consult Service Date: 11/14/21 Primary Care Provider: Unknown Physician HPI Reason for consult: Stroke 86 years old woman who came to emergency room with acute onset of dizziness and unsteadiness. Onset was somewhat unclear and because of that she was taken to MRI machine to assess for acute stroke. I was asked to see her in that setting. I went down and examine her in MRI machine area and also reviewed her MRI. She was not in any distress and able to communicate. Review of Systems Review of Systems: No recent trauma or cold or flu-like illness PMFSH Past Medical History Medical History (Updated 11/14/21 @ 12:49 by Lizzy Corado MD) Anemia Dyslipidemia Essential hypertension Essential hypertension History of cerebellar stroke Irritable bowel syndrome with constipation Moderate aortic stenosis Surgical menopause Systolic ejection murmur Type 2 diabetes mellitus with peripheral neuropathy Vitamin D deficiency Family History Family History (Updated 10/22/21 @ 14:08 by ROSAMARIA Staley) Father No problems noted. Mother No problems noted. Surgical History Surgical History History of appendectomy Hx of cataract surgery S/P partial hysterectomy Social History Social History Household Members: Family Housing: Condominium Alcohol intake: never Patient Tobacco Use Status: Never used Tobacco Use of substances other than those prescribed or required for medical reasons: No Advance Directives: No Advance Directives Information Provided: Yes Meds Allergies Allergy/AdvReac Type Severity Reaction Status Date / Time regadenoson [From Lexiscan] AdvReac Severe brief Verified 11/05/21 12:47 second degree heart block type 2 lovastatin AdvReac Unknown muscle pain Verified 10/22/21 14:06 Home Medications Medication Instructions Recorded Confirmed Last Taken Type blood sugar diagnostic #10 ea 02/13/21 10/22/21 Unknown History insulin aspar prot-insulin aspart 20 unit SUBCUT DAILY 02/13/21 10/22/21 Unknown History 100 unit/mL (70-30) subcutaneous pen metformin 500 mg tablet,extended 1,000 mg PO BID 02/13/21 10/22/21 09/05/21 History release 24 hr Co Q-10 1 tab PO DAILY 09/06/21 10/22/21 09/05/21 History cholecalciferol (vitamin D3) 25 25 mcg PO DAILY 09/06/21 10/22/21 09/05/21 History mcg (1,000 unit) tablet (Vitamin D3) docusate sodium 100 mg capsule 100 mg PO BID 09/19/21 10/22/21 Unknown History (Colace) glipizide 5 mg tablet, extended 10 mg PO DAILY tab 09/19/21 10/22/21 Unknown History release 24 hr Physical Exam Vital Signs: Vital Signs: Last Vital Signs Temp 97.9 F 11/14/21 10:43 Pulse 109 H 11/14/21 10:43 Resp 14 11/14/21 10:43 BP 147/75 H 11/14/21 11:47 Pulse Ox 99 11/14/21 11:47 BMI result Body Mass Index 29.9 Neuro: Other: She was alert and awake with normal spontaneity of speech fluency comprehension and affect. She was not in any distress. Face was symmetrical. Visual hill are full. There was no obvious focal arm or leg weakness. Plantars were equivocal. Results Labs CBC & Chem 7: 11/14/21 11:57 11/14/21 11:57 Labs: Short CBC 11/14/21 Range/Units 11:57 WBC 14.0 H (4.8-10.8) X10*3/uL Hgb 11.9 L (12.0-16.0) g/dl Hct 35.9 L (37.0-47.0) % Plt Count 352 (160-400) X10*3/uL BMP 11/14/21 11:57 Sodium 136 Potassium 4.4 Chloride 101 Carbon Dioxide 26 BUN 16 Creatinine 1.14 Calcium 10.1 D Liver Function 11/14/21 Range/Units 11:57 Total Bilirubin 0.8 (0.0-1.0) mg/dL Direct Bilirubin 0.3 (0.0-0.5) mg/dL AST 18 (5-31) U/L ALT 24 (0-31) U/L Alkaline Phosphatase 61 (39-117) U/L Albumin 4.5 (3.5-5.0) g/dL Urine 11/14/21 Range/Units 11:56 Urine Color STRAW Urine Appearance CLEAR Urine pH 6.0 (5.0-8.0) Ur Specific [place] 1.010 (1.005-1.025) Urine Protein NEG (NEG-TRACE) MG/DL Urine Glucose (UA) 250 H (NEG) MG/DL Her MRI of brain revealed a couple of cm sq area of restricted diffusion in cerebellar vermis area with almost no corresponding FLAIR signal abnormality. Previously she had all large left cerebellar infarct. Assessment and Plan (1) Stroke: Status: Acute 86 years old woman with acute moderate sides mid cerebellar infarct. Radiological features were suggestive of hyperacute stroke. This type of stroke typically cause dizziness and unsteadiness. My recommendation was to treat her with intravenous tPA. A CTA can be obtained later. As far as cause of stroke is concerned, artery to artery or cardiac source of embolism was more likely. After tPA she she should be admitted in ICU. Procedures Date of Service Date of Service: 11/14/21
--- NOTE | 2021-11-14 12:53 | PC.NURSE ---
TPA bolus given at 1246
--- NOTE | 2021-11-14 15:00 | MHC.STROKE ---
Addendum entered by Marce Ram RN 11/14/21 16:42: 1630 PATIENT C/O BEING HUNGRY, I DID HER NURSING SWALLOW SCREEN AND SHE PASSED, ALTHOUGH SHE FEELS A LITTLE NAUSEOUS. I WAS GOING TO GIVE HER A CRACKER BUT DECIDED TO WAIT. LAST SBP 185, IT WILL BE RECHECKED. NO PLUMMER ALL OTHER NEURO SIGNS INTACT. I DID CALL THE DAUGHTER MARNIE [phone] AND UPDATED HER ON HER MOTHER'S CONDITION. I ALSO LET HER KNOW THAT SHE WOULD BE GOING TO ICU 261, HER NURSE WAS RAÚL AND GAVE HER THE PHONE NUMBER. I CONFIRMED NO VISITORS DUE TO COVID PRECAUTIONS. SHE SAID HER MOM WAS VERY CONSTIPATED AND HAD A VERY DIFFICULT BOWEL MOVEMENT THIS AM. SHE REQUESTED COLACE. I PASSED THIS ON TO DR JIMENEZ, HE WILL ALSO ORDER HER A DIET BASED ON PASSING THE SWALLOW SCREEN. HE IS ALSO ADDING A CARDIOLOGY CONSULT PER DR RILEY. Original Note: 1036 EMS PRE-NOTIFIED, NO STROKE ALERT. ARRIVED AT 1040. C/O BEING OFF BALANCE WHILE PUTTING ON HER BATHROBE APPROX. 0745. SHE DID NOT THINK IT WAS A STROKE, SHE HAD A LEFT CEREBELLAR STROKE 09/05/21 WITH CTA THAT REVEALED LEFT VERTEBRAL OCCLUSION. HER SISTER TOLD HER TO CALL 911. SHE DID NOT TAKE ANY OF HER MEDICATIONS. SHE ARRIVED ALX3, TALKING, UP TO THE COMMODE. 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 DR RILEY ORDERED AN MRI, I CONTACT DR ZEE TO GIVE HIM A HEADS UP, THIS PATIENT IS KNOWN TO BOTH OF US FROM HER PRIOR STROKE. I TOOK THE PATIENT TO MRI AND STAYED TO MONITOR HER. I CALLED DR ZEE WHEN I SAW A POSITIVE +SIGNAL FOR A NEW ACUTE ISCHEMIC INFARCTION IN DWI SEQUENCE AND A MISMATCH IN T2 FLAIR IN THE LEFT CEREBELLUM. DR ZEE CAME TO MRI TO EXAM INE THE PATIENT, IT WAS DECIDED TO GIVE TPA (ALTEPLASE) BASED ON THE DWI AND FLAIR MISMATCH. SHE WAS EXPLAINED THE RISKS AND BENEFITS AND SHE DID SIGN A CONSENT FORM. BP 151/86 PRIOR TO TPA ALTEPLASE BOLUS GIVEN AT 1246 OVER 1 MINUTE, DRIP HUNG IMMEDIATELY TOTAL DOSE 68.8MG. I CALLED HER SON SHAWN [phone] AND RELAYED ALL OF THIS INFORMATION AND REVIEWED THE PLAN OF CARE. I ALSO RECEIVED A CALL FROM THE DAUGHTER MARNIE [phone] AND GAVE HER AN UPDATE. SHE IS THE 1ST PERSON TO CONTACT. I TOOK THE CARDIAC PHONE DEVICE AND GAVE IT BACK TO CARDIOLOGY DEPART. THE PATIENT HAS THE CORD AT HOME. WE TOOK THE PATIENTS EARINGS OFF AND PUT THEM IN A DENTURE CUP PRIOR TO THE MRI, THOSE WERE PLACED IN THE BELONGINGS BAGS IN THE ED WITH THE REST OF HER ITEMS. I CTH WAS DONE WHILE TPA WAS INFUSING. DR ZEE SAID SHE DOES NOT NEED ANOTHER CTA H/N BECAUSE ONE WAS DONE IN 2020 AT THE TIME OF HER LAST STORKE. SHE CAN HAVE A REPEAT CTH IN THE AM. VTE PROPHYLAXIS, AVOID HYPOTENSION MAP 90-120. LIPID PANEL, NPO AND REPEAT NURSING SWALLOW SCREEN AT 1900 TONIGHT AND ADVANCE DIET. ANTIPLATELET IN THE AM, CARDIOLOGY CONSULT. I WILL CONTINUE TO FOLLOW.
--- NOTE | 2021-11-14 17:24 | PHA.MEDREC ---
MED REC COMPLETE. PATIENT A LITTLE CONFUSED ON WHAT BLOOD PRESSURE MEDS SHE IS SUPPOSED TO BE ON. sHE RAN OUT OF AMLODIPINE AND HAS BEEN UNABLE TO GET A REFILL. POSSIBLY HAS BEEN WITHOUT FOR A COUPLE OF MONTHS. ALSO UPON LAST ADMISSION LISINOPRIL WAS INCREASED TO 10 MG, PATIENT HAS BEENN FILLING 2.5 MG AND SHE SEEMED UNSURE WHAT DOSE SHE IS SUPPOSED TO BE ON. Pharmacy Consult ? Medication Reconciliation Pharmacy has completed the medication reconciliation.
[2021-11-14 17:25] LABS: Glucose, Whole Blood 139 mg/dL (60-115)
[2021-11-14] MEDS: 0.9 % Sodium Chloride Flush 3 ML SYRINGE IVFLUSH (17:47)
[2021-11-14] MEDS: Metoprolol Tartrate 25 MG TABLET PO (17:47)
[2021-11-14] MEDS: Docusate Sodium 100 MG CAPSULE PO (19:58)
--- NOTE | 2021-11-14 19:59 | PM.CCHP ---
History of Present Illness Date of Service: 11/14/21 Attending physician on admission: Adalid Bacon Chief Complaint: dizziness Pt is a 86yo F with past med hx of cerebellar stroke, T2DM, aortic stenosis, HTN, HLD and vit d deficiency comes in c/o dizziness, left sided back of head pain, vomiting bile x1 and abdominal pain since 7:45AM. She had similar symptoms in August and ended up having a cerebellar stroke. Pt called 911 and was BIBA- this is the timeframe from the ED physician's note; Course Narrative: 11:10 patient was seen by ED Physician.? 11:46 patient had the MRI. 12:29 pm received a call from Dr. Corado that the MRI was reviewed by him personally and recommended to give tPA as soon as patient come back from the MRI knowing patient is slightly out of the window. 12:48 pm patient received tPA in the ED. 13:00 patient is awake, alert, oriented. 13:00 repeat exam is unremarkable with no change no sign of intracranial bleed. 14:25 patient is awake, alert, oriented, tolerated tPA with no problem. The patients labs were unremarkable except for WBC 14, could be 2/2 vomiting, trop 707.3 and BNP 814. EKG no acute changes, see imaging results below. Pt was brought to the ICU for monitoring s/p tPA. At my bedside exam at 8pm, pt is feeling well, denies any dizziness, headache, blurry vision, chest pain but does endorse epigastric abdominal pain. She states she has been having some chest pains over the last few weeks but she rests and usually feels a little better. Patient also wishes to change her code status to DNR / DNI. She states she has a MOLST form at home filled out but does not have it with her. RN Jag Coyle witnessed this conversation, I will change her code status now. She states she has a device which monitors her with our cardiology practice but I do not see any notes reflecting this. last echo in 09/12 showed: Conclusions: - 1. Normal LV systolic function with mild LVH with impaired ? ? relaxation filling pattern with elevated filling pressures ? ? ? 2. Moderate aortic stenosis? 3. Normal RV systolic pressure ? 4. No gross pericardial effusion ? ? Review of Systems Review of Systems: Yes all other systems are reviewed and are negative [facility] Past Medical History Medical History Anemia Dyslipidemia Essential hypertension Essential hypertension History of cerebellar stroke Irritable bowel syndrome with constipation Moderate aortic stenosis Surgical menopause Systolic ejection murmur Type 2 diabetes mellitus with peripheral neuropathy Vitamin D deficiency Family History Family History Father No problems noted. Mother No problems noted. Surgical History Surgical History History of appendectomy Hx of cataract surgery S/P partial hysterectomy Social History Social History Household Members: None Housing: Condominium Do you presently have visiting nurse or other home services: No Alcohol intake: never Patient Tobacco Use Status: Former Tobacco user Tobacco use type: Cigarette Use of substances other than those prescribed or required for medical reasons: No Have you been hit, kicked, punched, or otherwise hurt by someone within the past year? If so, by whom?: No Do you feel safe in your current relationship?: No Current Relationship Is there a partner from a previous relationship who is making you feel unsafe now?: No Are you made to feel afraid or neglected: No Spiritual Healthcare Practices: none Sikhism Healthcare Practices: none Cultural Healthcare Practices: none Advance Directives: No Advance Directives Information Provided: Yes Do you have thoughts of harming others: None Do you have a plan to hurt others: No Plan Recently lost weight without trying: No How much weight loss: Unsure Eating poorly because of decreased appetite: No Nutrition screen score: 2 Patient : No : No Poor oral hygiene: No Meds Allergies Allergy/AdvReac Type Severity Reaction Status Date / Time regadenoson [From Lexiscan] AdvReac Severe brief Verified 11/05/21 12:47 second degree heart block type 2 lovastatin AdvReac Unknown muscle pain Verified 10/22/21 14:06 Active Medications: Current Medications Amlodipine Besylate (Amlodipine Besylate 5 Mg Tablet) 5 mg PO DAILY TODD; Protocol Docusate Sodium (Docusate Sodium 100 Mg Capsule) 100 mg PO BID [facility] Last Admin: 11/14/21 19:58 Dose: 100 mg Documented by: Insulin Human Lispro (Insulin Lispro 100 Unit/Ml 3 Ml Vial) 0 unit SUBCUT QIDACHS [facility]; Protocol Lisinopril (Lisinopril 2.5 Mg Tablet) 2.5 mg PO DAILY [facility]; Protocol Sodium Chloride (0.9 % Sodium Chloride Flush 3 Ml Syringe) 3 ml IVFLUSH QSHIFT [facility] Last Admin: 11/14/21 17:47 Dose: 3 ml Documented by: Vitamin D (Cholecalciferol (Vitamin D3) 25 Mcg Tablet) 25 mcg PO DAILY [facility] Home Medications Medication Instructions Recorded Confirmed Last Taken Type blood sugar diagnostic #10 ea 02/13/21 10/22/21 Unknown History insulin aspar prot-insulin aspart 20 unit SUBCUT DAILY 02/13/21 11/14/21 Unknown History 100 unit/mL (70-30) subcutaneous pen metformin 500 mg tablet,extended 1,000 mg PO BID 02/13/21 11/14/21 11/13/21 History release 24 hr Co Q-10 1 tab PO DAILY 09/06/21 11/14/21 09/05/21 History cholecalciferol (vitamin D3) 25 25 mcg PO DAILY 09/06/21 11/14/21 11/13/21 History mcg (1,000 unit) tablet (Vitamin D3) docusate sodium 100 mg capsule 100 mg PO BID 09/19/21 11/14/21 Unknown History (Colace) glipizide 5 mg tablet, extended 10 mg PO DAILY tab 09/19/21 11/14/21 11/13/21 History release 24 hr Physical Exam Vital Signs: Vital Signs: Last Vital Signs Temp 98.6 F 11/14/21 19:29 Pulse 82 11/14/21 19:29 Resp 22 H 11/14/21 19:29 BP 164/68 H 11/14/21 19:29 Pulse Ox 98 11/14/21 19:29 BMI result Body Mass Index 30.4 Const: General: cooperative, healthy appearing, comfortable, no acute distress and well developed Nutritional Appearance: average body habitus Orientation/consciousness: patient oriented x3 Limitations: no limitations HENMT: Head: Yes normal to inspection General nose exam: Normal external nose present Face and sinus: Yes normal facial exam and Yes face symmetric Teeth and gingiva: poor dentition Eyes: General: appearance normal, both eyes and all related structures Pupils: Equal, round and reactive pupils present EOM: EOMs intact bilaterally Neck: Neck: Yes normal visual inspection and Yes full ROM Resp: Effort & Inspection: normal respiratory effort and able to speak in complete sentences Auscultation: crackles (fine) bilateral at the base Cardio: Rate: regular rate Rhythm: regular rhythm Heart sounds: Murmur heart sound present systolic at the left sternal border GI: Inspection: Yes normal to inspection Palpation (GI): Soft to palpation and Tenderness to palpation present (GI) in the epigastrum Auscultation: normal bowel sounds Skin: General skin exam: no rashes or lesions noted Neuro: General: patient oriented x3 Cranial nerves: Yes Equal, round and reactive pupils present Extrem: General: Yes normal to inspection and Yes no pedal edema Results Labs CBC and Chem 7: 11/14/21 11:57 11/14/21 11:57 Labs: Laboratory Results - last 24 hr 11/14/21 11/14/21 11/14/21 11:56 11:57 11:57 MCV 86.3 MCH 28.6 MCHC 33.1 RDW 13.9 Plt Count 352 MPV 11.3 Immature Gran % (Auto) 0.4 Neut % (Auto) 72.5 Lymph % (Auto) 15.8 L Webb % (Auto) 9.4 Eos % (Auto) 1.3 Baso % (Auto) 0.6 Lymph # (Auto) 2.2 Webb # (Auto) 1.3 H Eos # (Auto) 0.2 Baso # (Auto) 0.1 Abs Immat Gran (auto) 0.06 H Absolute Neuts (auto) 10.1 H Absolute Nucleated RBC 0.000 Nucleated RBC % (auto) 0.0 Anion Gap 13 Estim Creat Clear Calc 36.0 Estimated GFR 45 POC Glucose Random Glucose 209 H Calcium 10.1 D Total Bilirubin 0.8 Direct Bilirubin 0.3 AST 18 ALT 24 Alkaline Phosphatase 61 Troponin I High Sens B-Natriuretic Peptide Total Protein 7.7 Albumin 4.5 Lipase 19 Urine Color STRAW Urine Appearance CLEAR Urine pH 6.0 Ur Specific [place] 1.010 Urine Protein NEG Urine Glucose (UA) 250 H Urine Ketones 5 Urine Blood NEG Urine Nitrite NEG Ur Leukocyte Esterase TRACE H Urine RBC 0-2 Urine WBC 1-4 Ur Squamous Epith Cells 1+ Urine Bacteria NONE 11/14/21 11/14/21 11/14/21 11:57 11:57 17:20 MCV MCH MCHC RDW Plt Count MPV Immature Gran % (Auto) Neut % (Auto) Lymph % (Auto) Webb % (Auto) Eos % (Auto) Baso % (Auto) Lymph # (Auto) Webb # (Auto) Eos # (Auto) Baso # (Auto) Abs Immat Gran (auto) Absolute Neuts (auto) Absolute Nucleated RBC Nucleated RBC % (auto) Anion Gap Estim Creat Clear Calc Estimated GFR POC Glucose 139 H Random Glucose Calcium Total Bilirubin Direct Bilirubin AST ALT Alkaline Phosphatase Troponin I High Sens 707.3 H* B-Natriuretic Peptide 814 H Cancelled Total Protein Albumin Lipase Urine Color Urine Appearance Urine pH Ur Specific [place] Urine Protein Urine Glucose (UA) Urine Ketones Urine Blood Urine Nitrite Ur Leukocyte Esterase Urine RBC Urine WBC Ur Squamous Epith Cells Urine Bacteria ECG Attestation: I personally reviewed and interpreted this ECG as follows: Interpretation: Vent. Rate : 094 BPM ? ? Atrial Rate : 094 BPM ?? P-R Int : 178 ms? QRS Dur : 082 ms ? ? QT Int : 360 ms ? ? ? P-R-T Axes : 078 027 082 degrees ?? QTc Int : 450 ms ? Normal sinus rhythm Right atrial enlargement Nonspecific ST and T wave abnormality Abnormal ECG When compared with ECG of 05-SEP-2021 22:58, T wave inversion less evident in Lateral leads Imaging Radiologist's Impressions: Impressions Brain MRI 11/14/21 12:32 IMPRESSION: Small focus of acute infarction in the paramedian left inferior cerebellum involving the tonsil. Chronic left cerebellar infarct also demonstrated in the setting of chronic left vertebral artery occlusion. No hemorrhage. No mass. Chronic lacunar infarcts in the right basal ganglia and background changes of chronic microangiopathy. Abdomen/Pelvis CT 11/14/21 13:43 IMPRESSION: 1. No inflammatory changes in abdomen or pelvis. No bowel obstruction or fluid collection. 2. Small gravel-like gallstones. No gallbladder wall thickening, pericholecystic inflammatory changes, or ductal dilatation. 3. Urinary bladder prominently distended. No focal wall thickening or pelvic mass. Upper tracts unremarkable. Fleischner guidelines were followed. Head CT 11/14/21 13:43 IMPRESSION: No acute intracranial process seen. Mild mucoperiosteal thickening left sphenoid sinus. Chest X-Ray 11/14/21 13:53 IMPRESSION: No acute parenchymal disease. Assessment and Plan (1) Stroke: Status: Acute Pt will be monitored as per stroke protocol. (2) Abdominal pain: Status: Acute Will monitor, give simethicone and prune juice. (3) Type 2 diabetes mellitus with unspecified complications: Status: Acute (4) Moderate aortic stenosis: Status: Acute (5) History of cerebellar stroke: Status: Acute (6) Essential hypertension: Status: Acute will re-check troponin as it was elevated upon arrival DVT prophylaxis: boots
[2021-11-14] MEDS: Simethicone 80 MG TAB.CHEW PO (20:34)
[2021-11-14] MEDS: Insulin Lispro 100 UNIT/ML 3 ML VIAL SUBCUT (20:45)
[2021-11-14 21:01] LABS: Glucose, Whole Blood 254 mg/dL (60-115)
[2021-11-14 21:31] LABS: Troponin-I High Sensitivity 754.7 ng/L (<3.5-17.0)
[2021-11-14] MEDS: Acetaminophen 325 MG TABLET 650 MG PO (22:44)
[2021-11-15] VITALS (14 sets, daily range): BP systolic 107–186; BP diastolic 50–85; PULSE 85–105; RESP 13–21; TEMP 35.9–36.8; O2SAT 92–100; BMI 32.5
[2021-11-15 05:57] LABS: MANUAL DIFF FLAG NO
[2021-11-15 06:08] LABS: Basophils Absolute Auto 0.1 X10*3/uL (0.0-0.2); Basophils Percent Auto 0.7 % (0-2); Eosinophils Absolute Auto 0.3 X10*3/uL (0.0-0.4); Eosinophils Percent Auto 3.7 % (0-4); Hematocrit 31.5 % (37.0-47.0); Hemoglobin 10.4 g/dl (12.0-16.0); Imm Gran Abs Auto 0.04 X10*3/uL (0.00-0.03); Imm Gran Pct Auto 0.5 % (0.0-0.4); Lymphocytes Absolute Auto 2.6 X10*3/uL (1.2-4.9); Lymphocytes Percent Auto 29.4 % (20-40); Mean Corpuscular Hemoglobin 28.4 pg (27.0-33.0); Mean Corpuscular Volume 86.1 fL (80.0-98.0); Mean Platelet Volume 11.5 fL (9.4-12.3); Monocytes Absolute Auto 1.4 X10*3/uL (0.1-1.2); Monocytes Percent Auto 16.2 % (2-11); Neutrophils Absolute Auto 4.3 x10*3/uL (2.0-8.3); Neutrophils Percent Auto 49.5 % (45-73); Platelet Count 302 X10*3/uL (160-400); Red Blood Count 3.66 X10*6/uL (4.20-5.50); Red Cell Distribution Width 13.8 % (11.0-16.0); White Blood Count 8.8 X10*3/uL (4.8-10.8)
[2021-11-15 06:27] LABS: Anion Gap 12 (12-20); Blood Urea Nitrogen 16 mg/dL (9-16); Calcium 9.2 mg/dL (8.4-10.2); Carbon Dioxide 24 mmol/L (22-29); Chloride 102 mmol/L (96-108); Cholesterol 213 mg/dL; Creatinine Clr Calc Pharmacy 41.5; Estimated Glomerular Filt Rate 54; Glucose Random 160 mg/dL (60-115); HDL Cholesterol 43 mg/dL; LDL Cholesterol Calculated 140 mg/dl; Potassium 4.2 mmol/L (3.3-5.1); Sodium 134 mmol/L (135-145); Triglycerides 154 mg/dL
[2021-11-15 06:28] LABS: Troponin-I High Sensitivity 632.6 ng/L (<3.5-17.0)
[2021-11-15 07:19] LABS: Glucose, Whole Blood 149 mg/dL (60-115)
[2021-11-15] MEDS: Docusate Sodium 100 MG CAPSULE PO ×2 (09:14→20:41)
[2021-11-15] MEDS: 0.9 % Sodium Chloride Flush 3 ML SYRINGE IVFLUSH ×3 (09:14→20:41)
[2021-11-15] MEDS: Cholecalciferol (Vitamin D3) 25 MCG TABLET PO (09:14)
[2021-11-15] MEDS: lisinopriL 2.5 MG TABLET PO (09:15)
[2021-11-15] MEDS: amLODIPine Besylate 5 MG TABLET PO (09:15)
--- NOTE | 2021-11-15 09:36 | PM.CCPN ---
Subjective Subjective Date of Service: 11/15/21 Interval History: Mrs. Herzog was admitted to ICU yesterday after received tPA in the ED for stroke. The patient is an 86yo F with past med hx of cerebellar stroke, T2DM, moderate aortic stenosis on echo, HTN, HLD and Vit D deficiency.? Presented to ED yesterday bec of dizziness, left sided back of head pain, vomiting bile x1 and abdominal pain. MRI showed Small focus of acute infarction in the paramedian left inferior cerebellum, along with her old left cerebellar infarct, demonstrated in the setting of chronic left vertebral artery occlusion.? She also had chronic lacunar infarcts in the right basal ganglia and had background changes of chronic microangiopathy. She was given tPA in the ED.? See H&P for details. ?Did well overnite in the ICU, altho cerebellar fxn was not examined.? Note that, at the patient's request, her code status was changed to DNR / DNI.? She stated that she has a MOLST form at home filled out but does not have it with her. This morning she feels better overall.? She still feels a little unsteady on her feet, such that when she walks, she holds onto something.? FTN testing was slow but reasonably accurate.? She did slightly worse with her left arm than she did with her right.? HR 90, SR, BP 186/85.? Breathing easy w Sat 95% on room air.? Afebrile.? She?s eating her breakfast with gusto. Laboratory data: Below.? Note that, her troponin, checked as part of the stroke protocol, came back at 754.? Repeat this morning came back at 632. ?The patient denies chest pain or shortness of breath.? Her EKG seems to show an old inferior wall NC. IMPRESSION: 1. Old left cerebellar infarct. 2. New left cerebellar infarct. 3. ?Chronic left vertebral artery occlusion. 4. Essential hypertension, not well controlled at the moment.? Continue her home meds and we?ll see how she does. 5. Elevated troponin levels.? Cardiology consult pending. Stable for transfer to med surg.? I will sign out to the hospitalists. Time:? [id number] Critical Care Time (minutes): 0 Physical Exam Vital Signs: Vital Signs: Last Vital Signs Temp 97.8 F 11/15/21 08:00 Pulse 105 H 11/15/21 09:15 Resp 14 11/15/21 09:00 BP 186/85 H 11/15/21 09:15 Pulse Ox 95 11/15/21 09:00 BMI result Body Mass Index 32.5 Objective Data Labs CBC & Chem 7: 11/15/21 05:39 11/15/21 05:39 Labs: Laboratory Results - last 24 hr 11/14/21 11/14/21 11/14/21 11:56 11:57 11:57 WBC 14.0 H RBC 4.16 L Hgb 11.9 L Hct 35.9 L MCV 86.3 MCH 28.6 MCHC 33.1 RDW 13.9 Plt Count 352 MPV 11.3 Immature Gran % (Auto) 0.4 Neut % (Auto) 72.5 Lymph % (Auto) 15.8 L [place] % (Auto) 9.4 Eos % (Auto) 1.3 Baso % (Auto) 0.6 Lymph # (Auto) 2.2 [place] # (Auto) 1.3 H Eos # (Auto) 0.2 Baso # (Auto) 0.1 Abs Immat Gran (auto) 0.06 H Absolute Neuts (auto) 10.1 H Absolute Nucleated RBC 0.000 Nucleated RBC % (auto) 0.0 Sodium 136 Potassium 4.4 Chloride 101 Carbon Dioxide 26 Anion Gap 13 BUN 16 Creatinine 1.14 Estim Creat Clear Calc 36.0 Estimated GFR 45 POC Glucose Random Glucose 209 H Calcium 10.1 D Total Bilirubin 0.8 Direct Bilirubin 0.3 AST 18 ALT 24 Alkaline Phosphatase 61 Troponin I High Sens B-Natriuretic Peptide Total Protein 7.7 Albumin 4.5 Triglycerides Cholesterol LDL Cholesterol, Calc HDL Cholesterol Lipase 19 Urine Color STRAW Urine Appearance CLEAR Urine pH 6.0 Ur Specific [place] 1.010 Urine Protein NEG Urine Glucose (UA) 250 H Urine Ketones 5 Urine Blood NEG Urine Nitrite NEG Ur Leukocyte Esterase TRACE H Urine RBC 0-2 Urine WBC 1-4 Ur Squamous Epith Cells 1+ Urine Bacteria NONE 11/14/21 11/14/21 11/14/21 11:57 11:57 17:20 WBC RBC Hgb Hct MCV MCH MCHC RDW Plt Count MPV Immature Gran % (Auto) Neut % (Auto) Lymph % (Auto) [place] % (Auto) Eos % (Auto) Baso % (Auto) Lymph # (Auto) [place] # (Auto) Eos # (Auto) Baso # (Auto) Abs Immat Gran (auto) Absolute Neuts (auto) Absolute Nucleated RBC Nucleated RBC % (auto) Sodium Potassium Chloride Carbon Dioxide Anion Gap BUN Creatinine Estim Creat Clear Calc Estimated GFR POC Glucose 139 H Random Glucose Calcium Total Bilirubin Direct Bilirubin AST ALT Alkaline Phosphatase Troponin I High Sens 707.3 H* B-Natriuretic Peptide 814 H Cancelled Total Protein Albumin Triglycerides Cholesterol LDL Cholesterol, Calc HDL Cholesterol Lipase Urine Color Urine Appearance Urine pH Ur Specific [place] Urine Protein Urine Glucose (UA) Urine Ketones Urine Blood Urine Nitrite Ur Leukocyte Esterase Urine RBC Urine WBC Ur Squamous Epith Cells Urine Bacteria 11/14/21 11/14/21 11/15/21 20:33 20:38 05:39 WBC 8.8 RBC 3.66 L Hgb 10.4 L Hct 31.5 L MCV 86.1 MCH 28.4 MCHC 33.0 RDW 13.8 Plt Count 302 MPV 11.5 Immature Gran % (Auto) 0.5 H Neut % (Auto) 49.5 Lymph % (Auto) 29.4 [place] % (Auto) 16.2 H Eos % (Auto) 3.7 Baso % (Auto) 0.7 Lymph # (Auto) 2.6 [place] # (Auto) 1.4 H Eos # (Auto) 0.3 Baso # (Auto) 0.1 Abs Immat Gran (auto) 0.04 H Absolute Neuts (auto) 4.3 Absolute Nucleated RBC 0.000 Nucleated RBC % (auto) 0.0 Sodium Potassium Chloride Carbon Dioxide Anion Gap BUN Creatinine Estim Creat Clear Calc Estimated GFR POC Glucose 254 H Random Glucose Calcium Total Bilirubin Direct Bilirubin AST ALT Alkaline Phosphatase Troponin I High Sens 754.7 H* B-Natriuretic Peptide Total Protein Albumin Triglycerides Cholesterol LDL Cholesterol, Calc HDL Cholesterol Lipase Urine Color Urine Appearance Urine pH Ur Specific [place] Urine Protein Urine Glucose (UA) Urine Ketones Urine Blood Urine Nitrite Ur Leukocyte Esterase Urine RBC Urine WBC Ur Squamous Epith Cells Urine Bacteria 11/15/21 11/15/21 11/15/21 05:39 05:39 07:15 WBC RBC Hgb Hct MCV MCH MCHC RDW Plt Count MPV Immature Gran % (Auto) Neut % (Auto) Lymph % (Auto) [place] % (Auto) Eos % (Auto) Baso % (Auto) Lymph # (Auto) [place] # (Auto) Eos # (Auto) Baso # (Auto) Abs Immat Gran (auto) Absolute Neuts (auto) Absolute Nucleated RBC Nucleated RBC % (auto) Sodium 134 L Potassium 4.2 Chloride 102 Carbon Dioxide 24 Anion Gap 12 BUN 16 Creatinine 0.98 Estim Creat Clear Calc 41.5 Estimated GFR 54 POC Glucose 149 H Random Glucose 160 H Calcium 9.2 D Total Bilirubin Direct Bilirubin AST ALT Alkaline Phosphatase Troponin I High Sens 632.6 H* B-Natriuretic Peptide Total Protein Albumin Triglycerides 154 Cholesterol 213 LDL Cholesterol, Calc 140 HDL Cholesterol 43 Lipase Urine Color Urine Appearance Urine pH Ur Specific [place] Urine Protein Urine Glucose (UA) Urine Ketones Urine Blood Urine Nitrite Ur Leukocyte Esterase Urine RBC Urine WBC Ur Squamous Epith Cells Urine Bacteria Microbiology Microbiology Results: Microbiology 11/14/21 Unknown Urine clean catch - Urine o[place]nell top Urine Culture - Final Quality Stroke Does the patient have a stroke diagnosis?: Yes Reason for No Anti-thrombotic by Day Two: N/A - Med Ordered VTE Prior VTE?: No VTE Risk Level:: Medical - low VTE Device Contraindication: Treatment Not Indicated VTE Drug Contraindication: Treatment Not Indicated
--- NOTE | 2021-11-15 10:17 | MHC.CM.PN ---
Met with pt and spoke with dtr Sayra re: d/c planning needs: Pt resides alone in a single floor [facility]. She has no services at this time and uses a walker and cane on occasion. She has a Life Alert system and family assists her with transportation. Pt and dtr are unsure of PCP name as it may have recently changed. She is covid vax/boostered. Discussed pt needing PT eval for better assessment of needs: Pt interested in returning home with [facility] if at all possible: broad referrals placed and awaiting acceptance at this time. She will transfer to OR pending bed availability. HCP at home: copy requested: IMM in chart CM to follow
--- NOTE | 2021-11-15 10:47 | PM.CNCAR ---
History of Present Illness History of Present Illness Date of Service: 11/15/21 Chief complaint: stroke Narrative: This is a cardiology consultation regarding elevated troponins. Based on the admission documentation, it seems that she was admitted for dizziness, left side head pain towards the back, vomiting bile and abdominal pain. She has been diagnosed with stroke. In this context, troponins were elevated and hence we have been asked to see her. When I questioned her regarding chest pain, she states she has had chest pain that goes to the back. Per H and P, she had had any pain upon arrival but had mentioned about pains recently. Today she states she feels okay. Recently seen in the office in consultation. She has suspected CAD, moderate aortic stenosis and multiple risk factors including type 2 diabetes, hypertension. Review of Systems Review of Systems: Yes all other systems are reviewed and are negative Cardiovascular: Cardiovascular: Reports as per HPI, Reports no additional cardiovascular complaints, Denies acrocyanosis, Denies cool extremities, Denies painful fingertips, Reports chest pain, Denies chest pain at rest, Denies diaphoresis, Denies syncope, Denies irregular heart rhythm, Denies claudication, Denies leg edema, Denies lightheadedness, Denies palpitations and Denies dyspnea Respiratory: Respiratory: Denies dyspnea Neurologic: Denies syncope Endocrine: Endocrine: Denies palpitations PMFSH Past Medical History Medical History Anemia Dyslipidemia Essential hypertension Essential hypertension History of cerebellar stroke Irritable bowel syndrome with constipation Moderate aortic stenosis Surgical menopause Systolic ejection murmur Type 2 diabetes mellitus with peripheral neuropathy Vitamin D deficiency Family History Family History Father No problems noted. Mother No problems noted. Surgical History Surgical History History of appendectomy Hx of cataract surgery S/P partial hysterectomy Social History Social History Household Members: None Housing: Condominium Do you presently have visiting nurse or other home services: No Alcohol intake: never Patient Tobacco Use Status: Former Tobacco user Tobacco use type: Cigarette service: No Current occupational status: retired Meds Allergies Allergy/AdvReac Type Severity Reaction Status Date / Time regadenoson [From Lexiscan] AdvReac Severe brief Verified 11/05/21 12:47 second degree heart block type 2 lovastatin AdvReac Unknown muscle pain Verified 10/22/21 14:06 Active Medications: Current Medications Amlodipine Besylate (Amlodipine Besylate 5 Mg Tablet) 5 mg PO DAILY [facility]; Protocol Last Admin: 11/15/21 09:15 Dose: 5 mg Documented by: Docusate Sodium (Docusate Sodium 100 Mg Capsule) 100 mg PO BID [facility] Last Admin: 11/15/21 09:14 Dose: 100 mg Documented by: Insulin Human Lispro (Insulin Lispro 100 Unit/Ml 3 Ml Vial) 0 unit SUBCUT QIDACHS [facility]; Protocol Last Admin: 11/15/21 08:39 Dose: Not Given Documented by: Lisinopril (Lisinopril 2.5 Mg Tablet) 2.5 mg PO DAILY [facility]; Protocol Last Admin: 11/15/21 09:15 Dose: 2.5 mg Documented by: Sodium Chloride (0.9 % Sodium Chloride Flush 3 Ml Syringe) 3 ml IVFLUSH QSHIFT [facility] Last Admin: 11/15/21 09:14 Dose: 3 ml Documented by: Vitamin D (Cholecalciferol (Vitamin D3) 25 Mcg Tablet) 25 mcg PO DAILY [facility] Last Admin: 11/15/21 09:14 Dose: 25 mcg Documented by: Home Medications Medication Instructions Recorded Confirmed Last Taken Type blood sugar diagnostic #10 ea 02/13/21 11/14/21 Unknown History insulin aspar prot-insulin aspart 20 unit SUBCUT DAILY 02/13/21 11/14/21 Unknown History 100 unit/mL (70-30) subcutaneous pen metformin 500 mg tablet,extended 1,000 mg PO BID 02/13/21 11/14/21 11/13/21 History release 24 hr Co Q-10 1 tab PO DAILY 09/06/21 11/14/21 09/05/21 History cholecalciferol (vitamin D3) 25 25 mcg PO DAILY 09/06/21 11/14/21 11/13/21 History mcg (1,000 unit) tablet (Vitamin D3) docusate sodium 100 mg capsule 100 mg PO BID 09/19/21 11/14/21 Unknown History (Colace) glipizide 5 mg tablet, extended 10 mg PO DAILY tab 09/19/21 11/14/21 11/13/21 History release 24 hr Physical Exam Vital Signs: Vital Signs: Last Vital Signs Temp 97.8 F 11/15/21 08:00 Pulse 105 H 11/15/21 09:15 Resp 14 11/15/21 09:00 BP 186/85 H 11/15/21 09:15 Pulse Ox 95 11/15/21 09:00 BMI result Body Mass Index 32.5 Const: General: no acute distress HENMT: Other: Unremarkable Neck: Neck: Yes normal visual inspection Chest: Chest palpation & inspection: normal inspection of the chest Resp: Auscultation: crackles and no wheezes Cardio: Palpation: normal PMI Heart sounds: S1 normal heart sound present, S2 normal heart sound present, no gallops, Murmur heart sound present systolic II/ and at the right sternal border and no rubs GI: Palpation (GI): Soft to palpation Back/Spine/Pelvis: Other: unremarkable Skin: Lesions: other Neuro: Cranial nerves: Yes Other cranial nerve findings present Extrem: General: Yes other Psych: Mental Status: other Objective Labs and Meds Result diagrams: 11/15/21 05:39 11/15/21 05:39 Lab results: Laboratory Results - last 24 hr 11/14/21 11/14/21 11/14/21 11:56 11:57 11:57 WBC 14.0 H RBC 4.16 L Hgb 11.9 L Hct 35.9 L MCV 86.3 MCH 28.6 MCHC 33.1 RDW 13.9 Plt Count 352 MPV 11.3 Immature Gran % (Auto) 0.4 Neut % (Auto) 72.5 Lymph % (Auto) 15.8 L [place] % (Auto) 9.4 Eos % (Auto) 1.3 Baso % (Auto) 0.6 Lymph # (Auto) 2.2 [place] # (Auto) 1.3 H Eos # (Auto) 0.2 Baso # (Auto) 0.1 Abs Immat Gran (auto) 0.06 H Absolute Neuts (auto) 10.1 H Absolute Nucleated RBC 0.000 Nucleated RBC % (auto) 0.0 Sodium 136 Potassium 4.4 Chloride 101 Carbon Dioxide 26 Anion Gap 13 BUN 16 Creatinine 1.14 Estim Creat Clear Calc 36.0 Estimated GFR 45 POC Glucose Random Glucose 209 H Calcium 10.1 D Total Bilirubin 0.8 Direct Bilirubin 0.3 AST 18 ALT 24 Alkaline Phosphatase 61 Troponin I High Sens B-Natriuretic Peptide Total Protein 7.7 Albumin 4.5 Triglycerides Cholesterol LDL Cholesterol, Calc HDL Cholesterol Lipase 19 Urine Color STRAW Urine Appearance CLEAR Urine pH 6.0 Ur Specific [place] 1.010 Urine Protein NEG Urine Glucose (UA) 250 H Urine Ketones 5 Urine Blood NEG Urine Nitrite NEG Ur Leukocyte Esterase TRACE H Urine RBC 0-2 Urine WBC 1-4 Ur Squamous Epith Cells 1+ Urine Bacteria NONE 11/14/21 11/14/21 11/14/21 11:57 11:57 17:20 WBC RBC Hgb Hct MCV MCH MCHC RDW Plt Count MPV Immature Gran % (Auto) Neut % (Auto) Lymph % (Auto) [place] % (Auto) Eos % (Auto) Baso % (Auto) Lymph # (Auto) [place] # (Auto) Eos # (Auto) Baso # (Auto) Abs Immat Gran (auto) Absolute Neuts (auto) Absolute Nucleated RBC Nucleated RBC % (auto) Sodium Potassium Chloride Carbon Dioxide Anion Gap BUN Creatinine Estim Creat Clear Calc Estimated GFR POC Glucose 139 H Random Glucose Calcium Total Bilirubin Direct Bilirubin AST ALT Alkaline Phosphatase Troponin I High Sens 707.3 H* B-Natriuretic Peptide 814 H Cancelled Total Protein Albumin Triglycerides Cholesterol LDL Cholesterol, Calc HDL Cholesterol Lipase Urine Color Urine Appearance Urine pH Ur Specific [place] Urine Protein Urine Glucose (UA) Urine Ketones Urine Blood Urine Nitrite Ur Leukocyte Esterase Urine RBC Urine WBC Ur Squamous Epith Cells Urine Bacteria 11/14/21 11/14/21 11/15/21 20:33 20:38 05:39 WBC 8.8 RBC 3.66 L Hgb 10.4 L Hct 31.5 L MCV 86.1 MCH 28.4 MCHC 33.0 RDW 13.8 Plt Count 302 MPV 11.5 Immature Gran % (Auto) 0.5 H Neut % (Auto) 49.5 Lymph % (Auto) 29.4 [place] % (Auto) 16.2 H Eos % (Auto) 3.7 Baso % (Auto) 0.7 Lymph # (Auto) 2.6 [place] # (Auto) 1.4 H Eos # (Auto) 0.3 Baso # (Auto) 0.1 Abs Immat Gran (auto) 0.04 H Absolute Neuts (auto) 4.3 Absolute Nucleated RBC 0.000 Nucleated RBC % (auto) 0.0 Sodium Potassium Chloride Carbon Dioxide Anion Gap BUN Creatinine Estim Creat Clear Calc Estimated GFR POC Glucose 254 H Random Glucose Calcium Total Bilirubin Direct Bilirubin AST ALT Alkaline Phosphatase Troponin I High Sens 754.7 H* B-Natriuretic Peptide Total Protein Albumin Triglycerides Cholesterol LDL Cholesterol, Calc HDL Cholesterol Lipase Urine Color Urine Appearance Urine pH Ur Specific [place] Urine Protein Urine Glucose (UA) Urine Ketones Urine Blood Urine Nitrite Ur Leukocyte Esterase Urine RBC Urine WBC Ur Squamous Epith Cells Urine Bacteria 11/15/21 11/15/21 11/15/21 05:39 05:39 07:15 WBC RBC Hgb Hct MCV MCH MCHC RDW Plt Count MPV Immature Gran % (Auto) Neut % (Auto) Lymph % (Auto) [place] % (Auto) Eos % (Auto) Baso % (Auto) Lymph # (Auto) [place] # (Auto) Eos # (Auto) Baso # (Auto) Abs Immat Gran (auto) Absolute Neuts (auto) Absolute Nucleated RBC Nucleated RBC % (auto) Sodium 134 L Potassium 4.2 Chloride 102 Carbon Dioxide 24 Anion Gap 12 BUN 16 Creatinine 0.98 Estim Creat Clear Calc 41.5 Estimated GFR 54 POC Glucose 149 H Random Glucose 160 H Calcium 9.2 D Total Bilirubin Direct Bilirubin AST ALT Alkaline Phosphatase Troponin I High Sens 632.6 H* B-Natriuretic Peptide Total Protein Albumin Triglycerides 154 Cholesterol 213 LDL Cholesterol, Calc 140 HDL Cholesterol 43 Lipase Urine Color Urine Appearance Urine pH Ur Specific [place] Urine Protein Urine Glucose (UA) Urine Ketones Urine Blood Urine Nitrite Ur Leukocyte Esterase Urine RBC Urine WBC Ur Squamous Epith Cells Urine Bacteria ECG Interpretation: EKG shows sinus rhythm at 94/Min with nonspecific ST-T changes and right atrial enlargement. Imaging Radiologist's impression: Impressions Brain MRI 11/14/21 12:32 IMPRESSION: Small focus of acute infarction in the paramedian left inferior cerebellum involving the tonsil. Chronic left cerebellar infarct also demonstrated in the setting of chronic left vertebral artery occlusion. No hemorrhage. No mass. Chronic lacunar infarcts in the right basal ganglia and background changes of chronic microangiopathy. Abdomen/Pelvis CT 11/14/21 13:43 IMPRESSION: 1. No inflammatory changes in abdomen or pelvis. No bowel obstruction or fluid collection. 2. Small gravel-like gallstones. No gallbladder wall thickening, pericholecystic inflammatory changes, or ductal dilatation. 3. Urinary bladder prominently distended. No focal wall thickening or pelvic mass. Upper tracts unremarkable. Fleischner guidelines were followed. Head CT 11/14/21 13:43 IMPRESSION: No acute intracranial process seen. Mild mucoperiosteal thickening left sphenoid sinus. Chest X-Ray 11/14/21 13:53 IMPRESSION: No acute parenchymal disease. Assessment and Plan (1) NSTEMI (non-ST elevated myocardial infarction): Status: Acute (2) Stroke: Status: Acute (3) Non-rheumatic aortic stenosis: Status: Acute Based on troponins, she had a non ST elevation myocardial infarction in the setting of acute stroke. Echocardiogram from August with LVEF 60-65%, mild diastolic dysfunction and moderate aortic stenosis. Myocardial perfusion imaging study shows fixed basal/mid inferolateral defect history of nontransmural infarct. Overall, high likelihood of underlying coronary disease. We will treat accordingly. Based on outpatient medications she already on aspirin, blood pressure, diabetic medications and more recently we had sent a script for Praluent for lipids. This may be continued. With regard to further workup, probable diagnostic catheterization once she recovers from stroke but at her age and comorbidities will need to see what she wants. With regard to antiplatelet therapy or anticoagulation for stroke, will need to discuss with Neurology regarding concern for atrial fibrillation. If high likelihood of cardioembolic, then can consider Eliquis. In fact she did wear a outpatient Holter for about a week or so but during the time of admission is today it was sent back to the department. This can be reviewed when available. Discussed with Dr. Bacon. Procedures Date of Service Date of Service: 11/15/21
[2021-11-15 11:21] LABS: Glucose, Whole Blood 329 mg/dL (60-115)
--- NOTE | 2021-11-15 12:25 | PM.NEUROCN ---
History of Present Illness Data of Consult Service Date: 11/15/21 Primary Care Provider: Unknown Physician HPI Reason for consult: Stroke 86 years old woman with a cerebellar infarct status post intravenous tPA treatment. She was out of ICU and was feeling much better. She was able to walk around independently stating that there was only minor hesitancy left instead of anthony dizziness. There was no nausea. [facility] Past Medical History Medical History Anemia Dyslipidemia Essential hypertension Essential hypertension History of cerebellar stroke Irritable bowel syndrome with constipation Moderate aortic stenosis Surgical menopause Systolic ejection murmur Type 2 diabetes mellitus with peripheral neuropathy Vitamin D deficiency Family History Family History Father No problems noted. Mother No problems noted. Surgical History Surgical History History of appendectomy Hx of cataract surgery S/P partial hysterectomy Social History Social History Household Members: None Housing: Condominium Do you presently have visiting nurse or other home services: No Alcohol intake: never Patient Tobacco Use Status: Former Tobacco user Tobacco use type: Cigarette service: No Current occupational status: retired Meds Allergies Allergy/AdvReac Type Severity Reaction Status Date / Time regadenoson [From [employer]] AdvReac Severe brief Verified 11/05/21 12:47 second degree heart block type 2 lovastatin AdvReac Unknown muscle pain Verified 10/22/21 14:06 Active Medications: Current Medications Amlodipine Besylate (Amlodipine Besylate 5 Mg Tablet) 5 mg PO DAILY [facility]; Protocol Last Admin: 11/15/21 09:15 Dose: 5 mg Documented by: Docusate Sodium (Docusate Sodium 100 Mg Capsule) 100 mg PO BID TODD Last Admin: 11/15/21 09:14 Dose: 100 mg Documented by: Insulin Human Lispro (Insulin Lispro 100 Unit/Ml 3 Ml Vial) 0 unit SUBCUT QIDACHS [facility]; Protocol Last Admin: 11/15/21 08:39 Dose: Not Given Documented by: Lisinopril (Lisinopril 2.5 Mg Tablet) 2.5 mg PO DAILY [facility]; Protocol Last Admin: 11/15/21 09:15 Dose: 2.5 mg Documented by: Sodium Chloride (0.9 % Sodium Chloride Flush 3 Ml Syringe) 3 ml IVFLUSH QSHIFT [facility] Last Admin: 11/15/21 09:14 Dose: 3 ml Documented by: Vitamin D (Cholecalciferol (Vitamin D3) 25 Mcg Tablet) 25 mcg PO DAILY [facility] Last Admin: 11/15/21 09:14 Dose: 25 mcg Documented by: Home Medications Medication Instructions Recorded Confirmed Last Taken Type blood sugar diagnostic #10 ea 02/13/21 11/14/21 Unknown History insulin aspar prot-insulin aspart 20 unit SUBCUT DAILY 02/13/21 11/14/21 Unknown History 100 unit/mL (70-30) subcutaneous pen metformin 500 mg tablet,extended 1,000 mg PO BID 02/13/21 11/14/21 11/13/21 History release 24 hr Co Q-10 1 tab PO DAILY 09/06/21 11/14/21 09/05/21 History cholecalciferol (vitamin D3) 25 25 mcg PO DAILY 09/06/21 11/14/21 11/13/21 History mcg (1,000 unit) tablet (Vitamin D3) docusate sodium 100 mg capsule 100 mg PO BID 09/19/21 11/14/21 Unknown History (Colace) glipizide 5 mg tablet, extended 10 mg PO DAILY tab 09/19/21 11/14/21 11/13/21 History release 24 hr Physical Exam Vital Signs: Vital Signs: Last Vital Signs Temp 96.7 F L 11/15/21 12:00 Pulse 96 11/15/21 12:00 Resp 19 11/15/21 12:00 BP 178/76 H 11/15/21 12:00 Pulse Ox 100 11/15/21 12:00 BMI result Body Mass Index 32.5 Neuro: Other: She was alert and awake with normal spontaneity of speech fluency comprehension and affect. She was able to walk around without difficulty. Hhuttu-[id number] testing was normal. Results Labs CBC & Chem 7: 11/15/21 05:39 11/15/21 05:39 Labs: Short CBC 11/15/21 Range/Units 05:39 WBC 8.8 (4.8-10.8) X10*3/uL Hgb 10.4 L (12.0-16.0) g/dl Hct 31.5 L (37.0-47.0) % Plt Count 302 (160-400) X10*3/uL BMP 11/15/21 05:39 Sodium 134 L Potassium 4.2 Chloride 102 Carbon Dioxide 24 BUN 16 Creatinine 0.98 Calcium 9.2 D Microbiology Microbiology Results: Microbiology 11/14/21 Unknown Urine clean catch - Urine oconnell top Urine Culture - Final Assessment and Plan (1) Cerebellar infarct: Status: Acute 86 years old woman with significant intracranial atherosclerotic disease involving posterior circulation presented with acute dizziness and was diagnosed with a moderate-size cerebellar vermis infarct that was treated with intravenous tPA. Now she was doing much better with almost resolution of symptoms. At this time I would recommend maximizing treatment for this condition, i.e., intra cranial atherosclerotic disease. I would suggest aspirin 81 mg daily and clopidogrel 75 mg daily with blood pressure control and statin. Procedures Date of Service Date of Service: 11/15/21
[2021-11-15] MEDS: Insulin Lispro 100 UNIT/ML 3 ML VIAL SUBCUT ×3 (13:08→20:41)
[2021-11-15] MEDS: Acetaminophen 325 MG TABLET 650 MG PO (16:40)
[2021-11-15 16:45] LABS: Glucose, Whole Blood 276 mg/dL (60-115)
[2021-11-15 20:32] LABS: Glucose, Whole Blood 232 mg/dL (60-115)
[2021-11-16] VITALS: BP 136/65; PULSE 91; RESP 16; TEMP 36.5; O2SAT 96
[2021-11-16 03:51] VITALS: BP 135/62; PULSE 93; RESP 17; TEMP 36.4; O2SAT 96
[2021-11-16 07:26] VITALS: BP 149/64; PULSE 96; RESP 17; TEMP 36.7; O2SAT 95
[2021-11-16 07:50] LABS: Glucose, Whole Blood 174 mg/dL (60-115)
[2021-11-16] MEDS: Insulin Lispro 100 UNIT/ML 3 ML VIAL SUBCUT ×2 (08:05→13:02)
[2021-11-16] MEDS: 0.9 % Sodium Chloride Flush 3 ML SYRINGE IVFLUSH (08:06)
[2021-11-16] MEDS: Aspirin Enteric Coated 81 MG TABLET.DR PO (08:46)
[2021-11-16] MEDS: Clopidogrel Bisulfate 75 MG TABLET PO (08:46)
[2021-11-16] MEDS: Cholecalciferol (Vitamin D3) 25 MCG TABLET PO (08:46)
[2021-11-16 08:47] VITALS: BP 149/64; PULSE 96
[2021-11-16] MEDS: amLODIPine Besylate 5 MG TABLET PO (08:47)
[2021-11-16 08:48] VITALS: BP 149/64; PULSE 96
[2021-11-16] MEDS: lisinopriL 2.5 MG TABLET PO (08:48)
[2021-11-16] MEDS: Docusate Sodium 100 MG CAPSULE PO (08:49)
--- NOTE | 2021-11-16 10:43 | P.PNCA_ITS ---
Subjective Subjective Date of Service: 11/16/21 Interval history: She feels OK. No new complaints. Review of Systems Review of Systems Yes all other systems are reviewed and are negative Cardiovascular: Reports as per HPI, Reports no additional cardiovascular complaints, Denies acrocyanosis, Denies cool extremities, Denies painful fingertips, Reports chest pain, Denies chest pain at rest, Denies diaphoresis, Denies syncope, Denies irregular heart rhythm, Denies claudication, Denies leg edema, Denies lightheadedness, Denies palpitations and Denies dyspnea Respiratory: Denies dyspnea Denies syncope Endocrine: Denies palpitations Physical Exam Vital Signs: Last Vital Signs Temp 98.1 F 11/16/21 07:26 Pulse 96 11/16/21 08:48 Resp 17 11/16/21 07:26 BP 149/64 H 11/16/21 08:48 Pulse Ox 95 11/16/21 07:26 BMI result Body Mass Index 32.5 Const General: no acute distress HENMT Other: Unremarkable Neck Neck: Yes normal visual inspection Chest Chest palpation & inspection: normal inspection of the chest Resp Auscultation: crackles and no wheezes Cardio Palpation: normal PMI Heart sounds: S1 normal heart sound present, S2 normal heart sound present, no gallops, Murmur heart sound present systolic II/ and at the right sternal bor derrell and no rubs GI Palpation (GI): Soft to palpation Back/Spine/Pelvis Other: unremarkable Skin Lesions: other Neuro Cranial nerves: Yes Other cranial nerve findings present Extrem General: Yes other Psych Mental Status: other Objective Labs and Meds Result diagrams: 11/15/21 05:39 11/15/21 05:39 Lab results: Laboratory Results - last 24 hr 11/15/21 11/15/21 11/15/21 11:16 16:40 20:17 POC Glucose 329 H 276 H 232 H 11/16/21 07:26 POC Glucose 174 H Imaging Radiologist's impression: Impressions Head CT 11/15/21 09:07 IMPRESSION: *Acute infarct within the inferior left cerebellar hemisphere within the left cerebellar tonsil unchanged in extent compared with MRI of the brain 11/14/2021. No interval new acute infarcts. No intracranial hemorrhage. *Chronic infarct within the inferior left cerebellar hemisphere within the territory of the posterior inferior cerebellar artery. *Mild chronic microangiopathic ischemic changes. Progress Note: A&P Assessment and plan (1) NSTEMI (non-ST elevated myocardial infarction): Status: Acute (2) Stroke: Status: Acute (3) Non-rheumatic aortic stenosis: Status: Acute Assessment and Plan: Based on troponins, she had a non ST elevation myocardial infarction in the setting of acute stroke. Echocardiogram from August with LVEF 60-65%, mild diastolic dysfunction and moderate aortic stenosis. Myocardial perfusion imaging study shows fixed basal/mid inferolateral defect history of nontransmural infarct. Overall, high likelihood of underlying coronary disease. We will treat accordingly. Based on outpatient medications she already on aspirin, blood pressure, diabetic medications and more recently started Praluent for lipids. This may be continued. Increase Amlodipine due to high BP. With regard to further workup, probable diagnostic catheterization once she recovers from stroke, but at her age and comorbidities will need to see what she wants. She isn't sure and I also discussed this today over phone with her daughter Sayra. They will think about it and we will follow up in office. If any recurrent chest pain, advised to return to ER. For the stroke itself, s/p TPA. Antiplatelet therapy per neurology. Will review holter that was returned. Discussed with . Fall Risk Details Current Medications: Current Medications Acetaminophen (Acetaminophen 325 Mg Tablet) 650 mg PO Q6H PRN PRN Reason: Pain, Mild (Pain Scale 1-3) Last Admin: 11/15/21 16:40 Dose: 325 mg Documented by: Amlodipine Besylate (Amlodipine Besylate 5 Mg Tablet) 5 mg PO DAILY [facility]; Protocol Last Admin: 11/16/21 08:47 Dose: 5 mg Documented by: Aspirin (Aspirin Enteric Coated 81 Mg Tablet.) 81 mg PO DAILY [facility] Last Admin: 11/16/21 08:46 Dose: 81 mg Documented by: Clopidogrel Bisulfate (Clopidogrel Bisulfate 75 Mg Tablet) 75 mg PO DAILY [facility] Last Admin: 11/16/21 08:46 Dose: 75 mg Documented by: Docusate Sodium (Docusate Sodium 100 Mg Capsule) 100 mg PO BID [facility] Last Admin: 11/16/21 08:49 Dose: 100 mg Documented by: Insulin Human Lispro (Insulin Lispro 100 Unit/Ml 3 Ml Vial) 0 unit SUBCUT QIDACHS [facility]; Protocol Last Admin: 11/16/21 08:05 Dose: 2 unit Documented by: Lisinopril (Lisinopril 2.5 Mg Tablet) 2.5 mg PO DAILY [facility]; Protocol Last Admin: 11/16/21 08:48 Dose: 2.5 mg Documented by: Sodium Chloride (0.9 % Sodium Chloride Flush 3 Ml Syringe) [facility] Last Admin: 11/16/21 08:06 Dose: 3 ml Documented by: Vitamin D (Cholecalciferol (Vitamin D3) 25 Mcg Tablet) 25 mcg PO DAILY [facility] Last Admin: 11/16/21 08:46 Dose: 25 mcg Documented by: Time Spent With Patient Time: Total time spent is greater than 50% in coordination of care (as documented) at patient's floor/unit and/or counseling patient: Time with patient: less than 15 minutes Progress Note: Quality Stroke Does the patient have a stroke diagnosis?: Yes Reason for No Anti-thrombotic by Day Two: N/A - Med Ordered Procedures Date of Service Date of Service: 11/16/21
[2021-11-16 11:29] VITALS: BP 167/67; PULSE 92; RESP 18; TEMP 36.3; O2SAT 99
--- NOTE | 2021-11-16 11:29 | MHC.CM.PN ---
PER HOS[ITALIST. PT MEDICALLY CLEARED FOR D/C, ALTHOUGH PT/OT RECOMMENDED ACUTE REHAB, PER CARDIOLOGY PT SHOULD HAVE CARDIAC REHAB, PT WANTING TO D/C HOME W/SERVICES, CM VERIFIED W/HCP DTR MARNIE AT 11:20AM OKAY W/PLAN TO D/C HOME W/SERVICES AND PT WILL HAVE FAMILY THERE W/PT AND PT'S CHILDREN TAKE TURNS STAYING W/PT, PT'S SON GENEVIEVE WILL BE ABLE TO AQUATICS INSTRUCTOR PT AT 1:30PM, NURSING AND HOSPITALIST AWARE. D/C PLAN: HOME W/[facility] CARING FOR SN/OT/PT, FAMILY FOR TRANSPORT.
[2021-11-16 11:30] LABS: Glucose, Whole Blood 176 mg/dL (60-115)
--- NOTE | 2021-11-16 12:04 | P.DS_ITS ---
DS: Providers Provider Date of Service: 11/16/21 Date of admission: 11/14/21 15:39 Primary care physician: Unknown Physician Consults: 11/14/21 15:39 Consult to Neurology Routine Consulting Provider: Lizzy Corado Reason for consultation: stroke Has provider been notified: Yes 11/14/21 18:08 Consult to Cardiology Routine Consulting Provider: Josep Hunter Reason for consultation: Elevated troponin Has provider been notified: No DS: Diagnosis Discharge Diagnosis (1) NSTEMI (non-ST elevated myocardial infarction): Status: Acute (2) Stroke: Status: Acute (3) Non-rheumatic aortic stenosis: Status: Acute DS: Summary Hospital Course Hospital Course: Chief Complaint: dizziness Pt is a 86yo F with past med hx of cerebellar stroke, T2DM, aortic stenosis, HTN, HLD and vit d deficiency comes in c/o dizziness, left sided back of head pain, vomiting bile x1 and abdominal pain since 7:45AM. She had similar symptoms in August and ended up having a cerebellar stroke. Pt called 911 and was BIBA- this is the timeframe from the ED physician's note; Course Narrative: 11:10 patient was seen by ED Physician.? 11:46 patient had the MRI. 12:29 pm received a call from Dr. Corado that the MRI was reviewed by him personally and recommended to give tPA as soon as patient come back from the MRI knowing patient is slightly out of the window. 12:48 pm patient received tPA in the ED. 13:00 patient is awake, alert, oriented. 13:00 repeat exam is unremarkable with no change no sign of intracranial bleed. 14:25 patient is awake, alert, oriented, tolerated tPA with no problem. The patients labs were unremarkable except for WBC 14, could be 2/2 vomiting, trop 707.3 and BNP 814. EKG no acute changes, see imaging results below. Pt was brought to the ICU for monitoring s/p tPA. bedside exam at 8pm, pt is feeling well, denies any dizziness, headache, blurry vision, chest pain but does endorse epigastric abdominal pain. She states she has been having some chest pains over the last few weeks but she rests and usually feels a little better. Patient also wishes to change her code status to DNR / DNI.? She states she has a MOLST form at home filled out but does not have it with her. RN Jag Coyle witnessed this conversation, I will change her code status now. She states she has a device which monitors her with our cardiology practice but I do not see any notes reflecting this. last echo in 09/12 showed: Conclusions: 1. Normal LV systolic function with mild LVH with impaired ? ? relaxation filling pattern with elevated filling pressures ? ? ? 2. Moderate aortic stenosis? 3. Normal RV systolic pressure ? 4. No gross pericardial effusion ? ? Hospital course 86-year-old female patient with past medical history of cerebellar CVA, type 2 diabetes mellitus, aortic stenosis, hypertension hyperlipidemia and vitamin-D deficiency presented to [facility] with a diagnosis of dizziness, left- sided headache, MRI of brain showed acute infarction in the paramedian left inferior cerebellar involving the tonsils patient received TPN subsequently admitted to intensive care unit post tPA patient has been doing good with a steady gait no residual neurological deficit, patient evaluated by neurologist and has been recommended to be placed on aspirin and Plavix patient also noted to have elevated troponin with history of intermittent chest pain patient diagnosed to have non ST elevation DC by marriage performer since patient had an acute DC she will undergo outpatient cardiac workup, she was noted to have elevated blood pressure therefore dose of Norvasc has been increased to 10 mg by mouth daily and she has been continued on Zestril 2.5 mg daily patient had a Holter monitor placed report is not pending that will be reviewed by marriage performer as outpatient, patient evaluated by Physical therapy and Occupational therapy and initial plan was for acute rehab but since patient made great progress and wishes to be discharged home since patient family is able to provide care she is being discharged home with VNA and PT services. In regard to her diabetes mellitus she will continue home medications and she has been recommended to use acute to weekly injection for hyperlipidemia Time Spent with Patient Time attestation: Total time spent providing and/or coordinating discharge services: Discharge coordination time: Greater than 30 minutes Quality: Stroke Does the patient have a stroke diagnosis?: Yes Reason for No Anti-thrombotic at DC: N/A - Med Ordered Reason for No Anticoagulant at DC: N/A - Med Ordered Reason Not Initiating IV-Tpa: N/A - Med Ordered Reason for No Anti-thrombotic by Day Two: N/A - Med Ordered Reason for No Statin at DC: N/A - Med Ordered Physical Exam Vital Signs: Vital Signs: Last Vital Signs Temp 97.4 F 11/16/21 11:29 Pulse 92 11/16/21 11:29 Resp 18 11/16/21 11:29 BP 167/67 H 11/16/21 11:29 Pulse Ox 99 11/16/21 11:29 BMI result Body Mass Index 32.5 General awake alert x3, no acute distress. Neck supple no JVD. CVS regular rate rhythm, systolic murmur Respiratory lungs clear to auscultation, no respiratory distress, no wheeze, no rhonchi. Gastrointestinal abdomen soft, nontender, bowel sounds audible, Extremities no edema. Neuro nonfocal , speech clear Skin no rash Psych appropriate affect DS: Data Data Completed and Pending Labs on day of discharge: Laboratory Results - last 24 hr 11/15/21 11/15/21 11/16/21 16:40 20:17 07:26 POC Glucose 276 H 232 H 174 H 11/16/21 11:25 POC Glucose 176 H Discharge Plan Discharge Patient Disposition: Home Health Service Discharge Diagnosis: Acute cerebellar infarction Non ST-elevation DC Left vertebral artery occlusion Referrals: [facility] [Outside] - 3-5 Days (VNA SERVICES: ALF, HOME OT/PT. PLEASE CALL [phone] IF YOU HAVE NOT HEARD FROM A NURSE BY NOON ON Thursday11/18/21. ) Physician,Unknown J [Primary Care Provider] - 1 Week Discharge Medications: New clopidogrel 75 mg Tablet 75 mg PO DAILY Qty: 30 RF: 0 amlodipine [Norvasc] 10 mg tablet 10 mg PO DAILY Qty: 30 RF: 0 Continued lisinopril 2.5 mg tablet 2.5 mg PO DAILY Qty: 30 RF: 2 Praluent Pen 75 mg/mL pen injector 75 mg subcut Q2W Qty: 2 RF: 3 cholecalciferol (vitamin D3) [Vitamin D3] 25 mcg (1,000 unit) Tablet 25 mcg PO DAILY RF: 0 Co Q-10 1 tab PO DAILY RF: 0 aspirin 81 mg capsule 81 mg PO DAILY Qty: 60 RF: 0 polyethylene glycol 3350 [Miralax] 17 gram/dose powder 17 g PO DAILY PRN (Reason: constipation) Qty: 238 RF: 0 metformin 500 mg tablet extended release 24 hr 1,000 mg PO BID RF: 0 insulin asp prt-insulin aspart 100 unit/mL (70-30) insulin pen 20 unit subcut DAILY RF: 0 (DME) blood sugar diagnostic Strip See Rx Instructions ea Not Applicable BID Qty: 10 RF: 0 glipizide 5 mg tablet extended release 24hr 10 mg PO DAILY RF: 0 docusate sodium [Colace] 100 mg capsule 100 mg PO BID RF: 0 Discontinued amlodipine [Norvasc] 5 mg tablet 5 mg PO DAILY Qty: 30 RF: 3 Discharge Orders: Discharge Order (Routine); Ordered 11/16/21 Ordered By: Yvonne Espinoza Diet: diabetic diet and low fat, low cholesterol Activity on Discharge: As tolerated Stand Alone Forms: Patient Portal Discharge page Care Plan Goals: Recurrent cerebellar stroke/non ST-elevation DC, take all medications as prescribed including aspirin Plavix and praluent pen follow-up with Cardiology for outpatient ischemic workup Dose of Norvasc increased to 10 mg due to elevated blood pressure. Being discharged home with VNA and PT service Health Concerns: Cerebellar CVA, coronary artery disease, hypertension, diabetes Plan of Treatment: Outpatient follow-up with Cardiology in 1-2 weeks outpatient follow-up with primary care physician in 1-2 weeks. Assessment: Per discharge summary
--- NOTE | 2021-11-16 12:15 | W.MHC.F2F ---
Service Date Service Date: 11/16/21 Encounter Date of encounter: 11/16/21 Reasons for Services Signs and symptoms assessed: status post cerebellar CVA need close neurological followup, blood pressure monitoring Reason for penitentiary: neurological assessment and medication treatment Reason for physical therapy: home safety and mobility Homebound: Leaving the home is medically contraindicated at this time without the asist of a device and/or another person due th the listed conditions above and below. Certification: Based on the above findings, I certify that this patient is confined to the home and needs intermittent penitentiary care, physical therapy and/or speech therapy, or continues to need occupational therapy. The patient is under my care, and I have initiated the establishment of the plan of care. The patient will be followed by a physician who will periodically review the plan of care.
--- NOTE | 2021-11-17 13:26 | MHC.CM.PN ---
PATIENT WAS DISCHARGED HOME YESTERDAY (11/16/21) SONIA LOPEZ UPDATED WITH FACE TO FACE TODAY.
== END 2021-11-16 13:45 | disposition home health service (06) | DRG 61 ==
LOC: HO.ED 14:37 → HO.EDOVER 16:01 → HO.ICU 16:56 → HO.S3 11-15 11:02
PROVIDERS: Physician Assistant; Admitting Provider Anesthesiology; Emergency Provider Emergency Medicine; Visit Provider Hospitalist
DX: I63.9 Cerebral infarction, unspecified (principal); I21.4 Non-ST elevation (NSTEMI) myocardial infarction; E78.5 Hyperlipidemia, unspecified; I10 Essential (primary) hypertension; R29.700 NIHSS score 0; I35.0 Nonrheumatic aortic (valve) stenosis; E11.9 Type 2 diabetes mellitus without complications; Z86.73 Personal history of transient ischemic attack (TIA), and cerebral infarction without residual deficits; Z87.891 Personal history of nicotine dependence; Z79.82 Long term (current) use of aspirin; Z79.4 Long term (current) use of insulin; Z79.899 Other long term (current) drug therapy; Z66 Do not resuscitate
CPT/HCPCS: 36415; 70450; 70551; 71045; 74176; 80048; 80061; 80076; 81001; 82947; 83690; 83880; 84484; 85025; 87086; 93005; 96360; 97162; 97165; 97166; 99285; 99291; J2997

== ENCOUNTER 2021-11-20 11:52 | Inpatient (IN) | payer MEDICARE, OTHER, SELFPAY ==
--- NOTE | 2021-11-20 | ECG_ITS ---
Test Reason : CHEST PAIN Blood Pressure : / mmHG Vent. Rate : 096 BPM Atrial Rate : 096 BPM P-R Int : 172 ms QRS Dur : 080 ms QT Int : 364 ms P-R-T Axes : 055 -03 083 degrees QTc Int : 459 ms Normal sinus rhythm Possible Left atrial enlargement T wave abnormality, consider lateral ischemia Abnormal ECG When compared with ECG of 14-NOV-2021 13:27, T wave inversion less evident in Lateral leads Referred By: Generic ED Physician Electronically Signed By:Tommie Rey
--- NOTE | ~2021-11-20 | CT_ITS ---
EXAMINATION: CT HEAD WITHOUT CONTRAST (STROKE PROTOCOL) CLINICAL INFORMATION: Stroke protocol. Headache, difficulty standing, dizziness. COMPARISON: CT had noncontrast 11/15/2021, 11/14/2021 TECHNIQUE: Contiguous axial imaging was performed from the skull base to vertex without intravenous administration of contrast. Axial images provided. This CT examination was performed using dose optimization techniques as appropriate, variously including the following: *Automated exposure control *Adjustment of mA and/or kV according to patient size (this includes techniques or standardized protocols for targeted exams where dose is matched to indication/reason for exam; i.e. extremities or head) *Use of iterative reconstruction technique DLP: 634 mGy-cm FINDINGS: There is no intracranial hemorrhage, hematoma, or extra-axial fluid collection. There are generalized atrophic changes again seen with prominence of the cortical sulci and fissures and cisterns. The oconnell-white matter differentiation is similar to prior exam. Again, there is a prior infarct inferior left cerebellar hemisphere and small lacunar infarcts anterior right basal ganglia adjacent to caudate head. Mild periventricular white matter gliosis is stable. No mass effect or edema. There is no visible acute territorial infarct or mass lesion. The calvarium appears intact. There is no pneumocephalus or orbital emphysema. The visualized sinuses and middle ears and mastoid air cells show no significant mucosal thickening. There are no air-fluid levels. Results called and discussed with provider ANTHONY Knox in the emergency department at [address]/CT head for stroke IMPRESSION: No acute intracranial abnormality.
--- NOTE | ~2021-11-20 | MR_ITS ---
MRI OF THE BRAIN WITHOUT IV CONTRAST INDICATION: Rule out acute cerebellar infarct. Stroke November 14. COMPARISON: Head CT 11/15/2021 TECHNIQUE: Multiplanar multisequence MR imaging of the brain was obtained without IV contrast. FINDINGS: Since the previous MRI, there has been interval development of a small focus of cortically-based hemorrhage with surrounding edema at the right parieto-occipital lobe junction measuring 1.2 cm. Evolving acute on chronic left cerebellar infarct with new susceptibility signal within the acute portion of the infarct keeping with mild hemorrhagic transformation without significant mass effect. Chronic hemosiderin staining within the chronic portion of the left cerebellar infarct is again noted. There is background chronic microangiopathy. There is no hydrocephalus, extra-axial surface collection, or herniation. 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 The cerebellar tonsils are normally positioned. The craniocervical junction is normal. Osseous marrow signal intensity is homogenous. The visualized soft tissues are unremarkable. MR/MR head/brain wo con IMPRESSION: - Since the previous MRI, there has been interval development of a small focus of cortically-based hemorrhage with surrounding edema at the right parieto-occipital lobe junction measuring 1.2 cm. - Evolving acute on chronic left cerebellar infarct with new susceptibility signal within the acute portion of the infarct keeping with mild hemorrhagic transformation without significant mass effect. 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 Findings discussed with Dr. Mari Haji at 3:52 PM on 11/20/2021.
--- NOTE | ~2021-11-20 | MR_ITS ---
BRAIN MRI WITH CONTRAST CLINICAL INFORMATION: CVA COMPARISON: Brain MRI 11/20/2021. TECHNIQUE: Multiplanar multisequence MR imaging of the brain is obtained following the administration of 8 mL of Gadavist intravenous contrast without complication. MR/MR head/brain w con FINDINGS/IMPRESSION: - There is gyriform-like enhancement surrounding the focus of intraparenchymal hemorrhage located within the right parieto-occipital lobe junction seen on yesterday's MRI, likely indicative of hemorrhagic transformation of an infarct in this location. I suspect the size of the hemorrhage in this location is likely unchanged though is limitedly assessed on this limited postcontrast MRI. A 6-8 week follow-up MRI of the brain is recommended to document resolution of this enhancement and exclude alternative etiologies. - There is also enhancement along the periphery of infarcts within the inferomedial left cerebellar hemisphere, most likely attributable to blood brain barrier breakdown in the setting of infarction that should also be followed as per above.
[2021-11-20 11:57] VITALS: BP 182/76; BP 198/90; PULSE 115; PULSE 96; RESP 18; TEMP 36.9; O2SAT 100; O2SAT 99; BMI 31.2
[2021-11-20 12:33] VITALS: BP 159/54; PULSE 87; RESP 16; TEMP 36.7; O2SAT 98
--- NOTE | 2021-11-20 13:02 | ED_ITS ---
HPI - General Adult General Chief complaint: Dizziness <Mari Haji MD - Last Filed: 11/20/21 17:12> Stated complaint: PLUMMER,DIZZY,HTN <Mari Hjai MD - Last Filed: 11/20/21 17:12> Time Seen by Provider: 11/20/21 12:34 <Mari Haji MD - Last Filed: 11/20/21 17:12> Source: patient and EMS <Mari Haji MD - Last Filed: 11/20/21 17:12> Mode of arrival: EMS <Mari Haji MD - Last Filed: 11/20/21 17:12> Limitations: no limitations <Mari Haji MD - Last Filed: 11/20/21 17:12> History of Present Illness HPI narrative: Comes to emergency room complaining of dizziness. Patient states that around 09:00, she started complaining of pain around her neck and upper back. Patient states that she was unable to stand up. At this time, patient is able to sit up and walk with assistance. Otherwise patient denies any other neurological deficits. Of note, patient was seen here last week, patient was diagnosed with a cerebellar infarct and an NSTEMI on November 14, Patient was given tPA on that day. It was noted that patient has on nitroglycerin patch on her chest. Patient states that she does not remember if she told the EMS crew the that she had chest pain. At this time, patient states she has not pain, mostly complaining of headache in the back of her head <Mari Haji MD - Last Filed: 11/20/21 17:12> Related Data Home medications: Home Medications Medication Instructions Recorded Confirmed blood sugar diagnostic #10 ea 02/13/21 11/14/21 insulin aspar prot-insulin aspart 20 unit SUBCUT DAILY 02/13/21 11/14/21 100 unit/mL (70-30) subcutaneous pen metformin 500 mg tablet,extended 1,000 mg PO BID 02/13/21 11/14/21 release 24 hr Co Q-10 1 tab PO DAILY 09/06/21 11/14/21 cholecalciferol (vitamin D3) 25 25 mcg PO DAILY 09/06/21 11/14/21 mcg (1,000 unit) tablet (Vitamin D3) docusate sodium 100 mg capsule 100 mg PO BID 09/19/21 11/14/21 (Colace) glipizide 5 mg tablet, extended 10 mg PO DAILY tab 09/19/21 11/14/21 release 24 hr Previous Rx's Medication Instructions Recorded aspirin 81 mg capsule 81 mg PO DAILY #60 cap 09/09/21 polyethylene glycol 3350 17 17 g PO DAILY PRN #238 g 09/09/21 gram/dose oral powder (Miralax) lisinopril 2.5 mg tablet 2.5 mg PO DAILY #30 tab 10/10/21 alirocumab 75 mg/mL subcutaneous 75 mg SUBCUT Q2W #2 ml 10/22/21 pen injector (Praluent Pen) amlodipine 10 mg tablet (Norvasc) 10 mg PO DAILY #30 tab 11/16/21 clopidogrel 75 mg tablet 75 mg PO DAILY #30 tab 11/16/21 <Mari Haji MD - Last Filed: 11/20/21 17:12> Allergies/adverse reactions: Allergies Allergy/AdvReac Type Severity Reaction Status Date / Time regadenoson [From TRELYS] AdvReac Severe brief Verified 11/05/21 12:47 second degree heart block type 2 lovastatin AdvReac Unknown muscle pain Verified 10/22/21 14:06 <Mari Haji MD - Last Filed: 11/20/21 17:12> Review of Systems Review of Systems: Constitutional : No Weight loss, No Fever, No Chills, No Night Sweats, No Fatigue, No Malaise ENT/Mouth : No Hearing loss, No Ear Pain, No Nasal Congestion, No Sinus Pain, No Hoarseness, No sore throat, No Rhinorrhea, No Swallowing Difficulty Eyes: No Eye Pain, No Swelling, No Redness, No Foreign Body, No Discharge, No Vision Changes Cardiovascular : Seems that patient had chest pain earlier today, No SOB, No Dyspnea on Exertion, No Orthopnea, No Edema, No Palpitations Respiratory : No Cough, No Sputum, No Wheezing, No Smoke Exposure, No Dyspnea Gastrointestinal : No Nausea, No Vomiting, No Diarrhea, No Constipation, No abdominal Pain, No Hematochezia, No Melena Genitourinary : no irregular bleeding, No Dysuria, No Urinary Frequency, No Hematuria, No Urinary Incontinence, No Urgency, No Flank Pain, No Urinary Flow Changes, No Hesitancy Musculoskeletal : No joint pain, No Myalgias, No Joint Swelling Skin : No Skin Lesions, No rash Neuro : No Weakness, No Numbness, No Paresthesias, No Loss of Consciousness, complaining of dizziness, feeling off balance, earlier the patient was unable to sit up, complaining of headache in the posterior part of her head Psych : No Anxiety/Panic, No Depression, No SI/HI/AH/VH, No Social Issues, Heme/Lymph: No Bruising, No Bleeding,No Lymphadenopathy Endocrine : No Polyuria, No Polydipsia, No Temperature Intolerance <Mari Haji MD - Last Filed: 11/20/21 17:12> [facility] Past Medical History Medical History: Medical History Anemia Dyslipidemia Essential hypertension Essential hypertension History of cerebellar stroke Irritable bowel syndrome with constipation Moderate aortic stenosis Surgical menopause Systolic ejection murmur Type 2 diabetes mellitus with peripheral neuropathy Vitamin D deficiency <Mari Haji MD - Last Filed: 11/20/21 17:12> Surgical History: Surgical History History of appendectomy Hx of cataract surgery S/P partial hysterectomy <Mari Haji MD - Last Filed: 11/20/21 17:12> Family History Family History: Family History Father No problems noted. Mother No problems noted. <Mari Haji MD - Last Filed: 11/20/21 17:12> Social History Social History: Social History Household Members: None Housing: Condominium Do you presently have visiting nurse or other home services: No Alcohol intake: never Patient Tobacco Use Status: Former Tobacco user Tobacco use type: Cigarette Use of substances other than those prescribed or required for medical reasons: No Advance Directives: Yes Advance Directives Information Provided: No Advance Directives on File: No service: No Current occupational status: retired <Mari Haji MD - Last Filed: 11/20/21 17:12> Physical Exam Vital Signs: Vital Signs: Last Vital Signs Temp 98.0 F 11/20/21 12:33 Pulse 85 11/20/21 15:34 Resp 19 11/20/21 15:34 BP 169/73 H 11/20/21 15:34 Pulse Ox 98 11/20/21 15:34 BMI result Body Mass Index 31.2 <Mari Haji MD - Last Filed: 11/20/21 17:12> Vital Signs: Last Vital Signs Temp 98.0 F 11/20/21 12:33 Pulse 85 11/20/21 15:34 Resp 19 11/20/21 15:34 BP 169/73 H 11/20/21 15:34 Pulse Ox 98 11/20/21 15:34 BMI result Body Mass Index 31.2 <ANTHONY Knox - Last Filed: 11/20/21 13:27> Const: Other: Appearance: Alert. Oriented X3. No acute distress. Well- appearing Eyes: Pupils equal, round and reactive to light. ENT: Pharynx normal. Neck: Normal inspection. Neck supple. No lymph nodes noted. No crepitus CVS: Normal heart rate and rhythm. Pulses normal. Normal S1 and S2 Respiratory: No respiratory distress. Breath sounds normal. No Wheezing. No rales Abdomen: Soft and nontender. No rigidity. No distention. Skin: Skin warm and dry. Normal skin color. Normal skin turgor. Extremities: Moves all extremities Neuro: Oriented X 3. No motor deficit. No sensory deficit. Moving all extermities. No slurred speech. Good truncal stability. Patient was able to walk with assistance to the bathroom <Mari Haji MD - Last Filed: 11/20/21 17:12> NIH Stroke Scale Level of Consciousness: Alert <Mari Haji MD - Last Filed: 11/20/21 17:12> Level of Consciousness Questions: Answers both questions correctly <Mari Haji MD - Last Filed: 11/20/21 17:12> Level of Consciousness Commands: Performs both tasks correctly <Mari Haji MD - Last Filed: 11/20/21 17:12> Best Gaze: Normal <Mari Haji MD - Last Filed: 11/20/21 17:12> Visual: No visual loss <Mari Haji MD - Last Filed: 11/20/21 17:12> Facial Palsy: Normal <Mari Haji MD - Last Filed: 11/20/21 17:12> Motor Arm (Right): No drift <Mari Haji MD - Last Filed: 11/20/21 17:12> Motor Arm (Left): No drift <Mari Haji MD - Last Filed: 11/20/21 17:12> Motor Leg (Right): No drift <Mari Haji MD - Last Filed: 11/20/21 17:12> Motor Leg (Left): No drift <Mari Haji MD - Last Filed: 11/20/21 17:12> Limb Ataxia: Absent <Mari Haji MD - Last Filed: 11/20/21 17:12> Sensory: Normal <Mari Haji MD - Last Filed: 11/20/21 17:12> Best Language: No aphasia <Mari Haji MD - Last Filed: 11/20/21 17:12> Dysarthia: Normal <Mari Haji MD - Last Filed: 11/20/21 17:12> Extinction and Inattention: No abnormality <Mari Haji MD - Last Filed: 11/20/21 17:12> Score: 0 <Mair Haji MD - Last Filed: 11/20/21 17:12> 0 <ANTHONY Knox - Last Filed: 11/20/21 13:27> Course Course Course Narrative: Patient is being scanned for stroke protocol. However, patient received tPA 6 days ago for cerebellar infarct. Will go ahead and make sure that there is no brain bleed. I discussed the patient with Marce from the is stroke team. Dr. Corado also be consulted. suggestest to go ahead and get an MRI, even though pt is not a pt for tPA At this time, patient states that she has no chest pain at all. Patient still has a nitroglycerin patch on her chest. Patient states that she does not remember if she had chest pain earlier today or not. It is likely that she did have chest pain, otherwise EMS would not have placed a nitro patch. Nitro patch was removed. Patient remains asymptomatic. Patient's troponin is 148 but is much lower than when she had her NSTEMI. I discussed the MRI findings with Dr. Corado from Neurology. 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 Recommendations are to stop Plavix, continue aspirin, patient needs an MRI with contrast in the morning to rule out possible mass I discussed the patient with Dr. Sandoval, patient being admitted Patient states that her headache nearly resolved. Patient was able to walk again with assistance to the bathroom. Patient denies chest pain or shortness of breath <Mari Haji MD - Last Filed: 11/20/21 17:12> Medical Decision Making Lab Data Result diagrams: : 11/20/21 13:34 11/20/21 13:34 <Mari Haji MD - Last Filed: 11/20/21 17:12> Labs: Lab Results 11/20/21 11/20/21 11/20/21 Range/Units 12:57 13:34 13:34 WBC 8.1 (4.8-10.8) X10*3/uL RBC 3.76 L (4.20-5.50) X10*6/uL Hgb 10.9 L (12.0-16.0) g/dl Hct 32.8 L (37.0-47.0) % MCV 87.2 (80.0-98.0) fL MCH 29.0 (27.0-33.0) pg MCHC 33.2 (31.0-35.0) g/dl RDW 14.0 (11.0-16.0) % Plt Count 328 (160-400) X10*3/uL MPV 11.1 (9.4-12.3) fL Immature Gran % (Auto) 0.2 (0.0-0.4) % Neut % (Auto) 51.0 (45-73) % Lymph % (Auto) 32.4 (20-40) % [place]urel % (Auto) 13.5 H (2-11) % Eos % (Auto) 2.2 (0-4) % Baso % (Auto) 0.7 (0-2) % Lymph # (Auto) 2.6 (1.2-4.9) X10*3/uL [place] # (Auto) 1.1 (0.1-1.2) X10*3/uL Eos # (Auto) 0.2 (0.0-0.4) X10*3/uL Baso # (Auto) 0.1 (0.0-0.2) X10*3/uL Abs Immat Gran (auto) 0.02 (0.00-0.03) X10*3/uL Absolute Neuts (auto) 4.1 (2.0-8.3) x10*3/uL Absolute Nucleated RBC 0.000 (0.0-0.012) X10*3/uL Nucleated RBC % (auto) 0.0 (0.0-0.2) /100WBC Sodium 134 L (135-145) mmol/L Potassium 4.4 (3.3-5.1) mmol/L Chloride 102 (96-108) mmol/L Carbon Dioxide 23 (22-29) mmol/L Anion Gap 13 (12-20) BUN 17 H (9-16) mg/dL Creatinine 1.17 (0.5-1.4) mg/dL Estim Creat Clear Calc 35.2 Estimated GFR 44 Random Glucose 157 H (60-115) mg/dL Calcium 9.6 (8.4-10.2) mg/dL Total Bilirubin 0.3 (0.0-1.0) mg/dL Direct Bilirubin 0.2 (0.0-0.5) mg/dL AST 15 (5-31) U/L ALT 16 (0-31) U/L Alkaline Phosphatase 51 (39-117) U/L Troponin I High Sens (<3.5-17.0) ng/L Total Protein 7.1 (6.5-8.0) g/dL Albumin 4.2 (3.5-5.0) g/dL Urine Color OTHER Urine Appearance CLEAR Urine pH 6.0 (5.0-8.0) Ur Specific [place] <= 1.005 (1.005-1.025) Urine Protein NEG (NEG-TRACE) MG/DL Urine Glucose (UA) 100 H (NEG) MG/DL Urine Ketones NEG (NEG) MG/DL Urine Blood NEG (NEG) Urine Nitrite NEG (NEG) Ur Leukocyte Esterase TRACE H (NEG) Urine RBC 0 (0) /HPF Urine WBC 0-2 (0-4) /HPF Ur Squamous Epith Cells NONE /LPF Ur Renal Epithelial Cell TRACE /LPF Urine Bacteria NONE /LPF COVID-19 ([facility]VANA) (Negative) COVID-19 Clin Com 11/20/21 11/20/21 Range/Units 13:34 13:34 WBC (4.8-10.8) X10*3/uL RBC (4.20-5.50) X10*6/uL Hgb (12.0-16.0) g/dl Hct (37.0-47.0) % MCV (80.0-98.0) fL MCH (27.0-33.0) pg MCHC (31.0-35.0) g/dl RDW (11.0-16.0) % Plt Count (160-400) X10*3/uL MPV (9.4-12.3) fL Immature Gran % (Auto) (0.0-0.4) % Neut % (Auto) (45-73) % Lymph % (Auto) (20-40) % [place] % (Auto) (2-11) % Eos % (Auto) (0-4) % Baso % (Auto) (0-2) % Lymph # (Auto) (1.2-4.9) X10*3/uL [place] # (Auto) (0.1-1.2) X10*3/uL Eos # (Auto) (0.0-0.4) X10*3/uL Baso # (Auto) (0.0-0.2) X10*3/uL Abs Immat Gran (auto) (0.00-0.03) X10*3/uL Absolute Neuts (auto) (2.0-8.3) x10*3/uL Absolute Nucleated RBC (0.0-0.012) X10*3/uL Nucleated RBC % (auto) (0.0-0.2) /100WBC Sodium (135-145) mmol/L Potassium (3.3-5.1) mmol/L Chloride (96-108) mmol/L Carbon Dioxide (22-29) mmol/L Anion Gap (12-20) BUN (9-16) mg/dL Creatinine (0.5-1.4) mg/dL Estim Creat Clear Calc Estimated GFR Random Glucose (60-115) mg/dL Calcium (8.4-10.2) mg/dL Total Bilirubin (0.0-1.0) mg/dL Direct Bilirubin (0.0-0.5) mg/dL AST (5-31) U/L ALT (0-31) U/L Alkaline Phosphatase (39-117) U/L Troponin I High Sens 148.2 H* D (<3.5-17.0) ng/L Total Protein (6.5-8.0) g/dL Albumin (3.5-5.0) g/dL Urine Color Urine Appearance Urine pH (5.0-8.0) Ur Specific [place] (1.005-1.025) Urine Protein (NEG-TRACE) MG/DL Urine Glucose (UA) (NEG) MG/DL Urine Ketones (NEG) MG/DL Urine Blood (NEG) Urine Nitrite (NEG) Ur Leukocyte Esterase (NEG) Urine RBC (0) /HPF Urine WBC (0-4) /HPF Ur Squamous Epith Cells /LPF Ur Renal Epithelial Cell /LPF Urine Bacteria /LPF COVID-19 ([facility]VANA) Negative (Negative) COVID-19 Clin Com See Note <Mari Haji MD - Last Filed: 11/20/21 17:12> Lab Results 11/20/21 11/20/21 11/20/21 Range/Units 12:57 13:34 13:34 WBC 8.1 (4.8-10.8) X10*3/uL RBC 3.76 L (4.20-5.50) X10*6/uL Hgb 10.9 L (12.0-16.0) g/dl Hct 32.8 L (37.0-47.0) % MCV 87.2 (80.0-98.0) fL MCH 29.0 (27.0-33.0) pg MCHC 33.2 (31.0-35.0) g/dl RDW 14.0 (11.0-16.0) % Plt Count 328 (160-400) X10*3/uL MPV 11.1 (9.4-12.3) fL Immature Gran % (Auto) 0.2 (0.0-0.4) % Neut % (Auto) 51.0 (45-73) % Lymph % (Auto) 32.4 (20-40) % [place] % (Auto) 13.5 H (2-11) % Eos % (Auto) 2.2 (0-4) % Baso % (Auto) 0.7 (0-2) % Lymph # (Auto) 2.6 (1.2-4.9) X10*3/uL [place] # (Auto) 1.1 (0.1-1.2) X10*3/uL Eos # (Auto) 0.2 (0.0-0.4) X10*3/uL Baso # (Auto) 0.1 (0.0-0.2) X10*3/uL Abs Immat Gran (auto) 0.02 (0.00-0.03) X10*3/uL Absolute Neuts (auto) 4.1 (2.0-8.3) x10*3/uL Absolute Nucleated RBC 0.000 (0.0-0.012) X10*3/uL Nucleated RBC % (auto) 0.0 (0.0-0.2) /100WBC Sodium 134 L (135-145) mmol/L Potassium 4.4 (3.3-5.1) mmol/L Chloride 102 (96-108) mmol/L Carbon Dioxide 23 (22-29) mmol/L Anion Gap 13 (12-20) BUN 17 H (9-16) mg/dL Creatinine 1.17 (0.5-1.4) mg/dL Estim Creat Clear Calc 35.2 Estimated GFR 44 Random Glucose 157 H (60-115) mg/dL Calcium 9.6 (8.4-10.2) mg/dL Total Bilirubin 0.3 (0.0-1.0) mg/dL Direct Bilirubin 0.2 (0.0-0.5) mg/dL AST 15 (5-31) U/L ALT 16 (0-31) U/L Alkaline Phosphatase 51 (39-117) U/L Troponin I High Sens (<3.5-17.0) ng/L Total Protein 7.1 (6.5-8.0) g/dL Albumin 4.2 (3.5-5.0) g/dL Urine Color OTHER Urine Appearance CLEAR Urine pH 6.0 (5.0-8.0) Ur Specific [place] <= 1.005 (1.005-1.025) Urine Protein NEG (NEG-TRACE) MG/DL Urine Glucose (UA) 100 H (NEG) MG/DL Urine Ketones NEG (NEG) MG/DL Urine Blood NEG (NEG) Urine Nitrite NEG (NEG) Ur Leukocyte Esterase TRACE H (NEG) Urine RBC 0 (0) /HPF Urine WBC 0-2 (0-4) /HPF Ur Squamous Epith Cells NONE /LPF Ur Renal Epithelial Cell TRACE /LPF Urine Bacteria NONE /LPF COVID-19 ([facility]) (Negative) COVID-19 Clin Com 11/20/21 11/20/21 Range/Units 13:34 13:34 WBC (4.8-10.8) X10*3/uL RBC (4.20-5.50) X10*6/uL Hgb (12.0-16.0) g/dl Hct (37.0-47.0) % MCV (80.0-98.0) fL MCH (27.0-33.0) pg MCHC (31.0-35.0) g/dl RDW (11.0-16.0) % Plt Count (160-400) X10*3/uL MPV (9.4-12.3) fL Immature Gran % (Auto) (0.0-0.4) % Neut % (Auto) (45-73) % Lymph % (Auto) (20-40) % [place] % (Auto) (2-11) % Eos % (Auto) (0-4) % Baso % (Auto) (0-2) % Lymph # (Auto) (1.2-4.9) X10*3/uL [place] # (Auto) (0.1-1.2) X10*3/uL Eos # (Auto) (0.0-0.4) X10*3/uL Baso # (Auto) (0.0-0.2) X10*3/uL Abs Immat Gran (auto) (0.00-0.03) X10*3/uL Absolute Neuts (auto) (2.0-8.3) x10*3/uL Absolute Nucleated RBC (0.0-0.012) X10*3/uL Nucleated RBC % (auto) (0.0-0.2) /100WBC Sodium (135-145) mmol/L Potassium (3.3-5.1) mmol/L Chloride (96-108) mmol/L Carbon Dioxide (22-29) mmol/L Anion Gap (12-20) BUN (9-16) mg/dL Creatinine (0.5-1.4) mg/dL Estim Creat Clear Calc Estimated GFR Random Glucose (60-115) mg/dL Calcium (8.4-10.2) mg/dL Total Bilirubin (0.0-1.0) mg/dL Direct Bilirubin (0.0-0.5) mg/dL AST (5-31) U/L ALT (0-31) U/L Alkaline Phosphatase (39-117) U/L Troponin I High Sens 148.2 H* D (<3.5-17.0) ng/L Total Protein (6.5-8.0) g/dL Albumin (3.5-5.0) g/dL Urine Color Urine Appearance Urine pH (5.0-8.0) Ur Specific [place] (1.005-1.025) Urine Protein (NEG-TRACE) MG/DL Urine Glucose (UA) (NEG) MG/DL Urine Ketones (NEG) MG/DL Urine Blood (NEG) Urine Nitrite (NEG) Ur Leukocyte Esterase (NEG) Urine RBC (0) /HPF Urine WBC (0-4) /HPF Ur Squamous Epith Cells /LPF Ur Renal Epithelial Cell /LPF Urine Bacteria /LPF COVID-19 ([facility]) Negative (Negative) COVID-19 Clin Com See Note <ANTHONY Knox - Last Filed: 11/20/21 13:27> Imaging Data CT scan - head: Radiologist's impression: FINDINGS: There is no intracranial hemorrhage, hematoma, or extra-axial fluid collection.? There are generalized atrophic changes again seen with prominence of the cortical sulci and fissures and cisterns. The oconnell-white matter differentiation is similar to prior exam. Again, there is a prior infarct inferior left cerebellar hemisphere and small lacunar infarcts anterior right basal ganglia adjacent to caudate head. Mild periventricular white matter gliosis is stable. No mass effect or edema.? There is no visible acute territorial infarct or mass lesion. The calvarium appears intact. There is no pneumocephalus or orbital emphysema.? The visualized sinuses and middle ears and mastoid air cells show no significant mucosal thickening. There are no air-fluid levels. Results called and discussed with provider ANTHONY Knox in the emergency department at [address]/CT head for stroke IMPRESSION: No acute intracranial abnormality. <Mari Haji MD - Last Filed: 11/20/21 17:12> Brain MRI: Radiologist's impression: FINDINGS: Since the previous MRI, there has been interval development of a small focus of cortically-based hemorrhage with surrounding edema at the right parieto-occipital lobe junction measuring 1.2 cm. Evolving acute on chronic left cerebellar infarct with new susceptibility signal within the acute portion of the infarct keeping with mild hemorrhagic transformation without significant mass effect. Chronic hemosiderin staining within the chronic portion of the left cerebellar infarct is again noted. There is background chronic microangiopathy. There is no hydrocephalus, extra-axial surface collection, or herniation. 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 The cerebellar tonsils are normally positioned. The craniocervical junction is normal. Osseous marrow signal intensity is homogenous. The visualized soft tissues are unremarkable. MR/MR head/brain wo con IMPRESSION: - Since the previous MRI, there has been interval development of a small focus of cortically-based hemorrhage with surrounding edema at the right parieto-occipital lobe junction measuring 1.2 cm. ? - Evolving acute on chronic left cerebellar infarct with new susceptibility signal within the acute portion of the infarct keeping with mild hemorrhagic transformation without significant mass effect. ? 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 <Mari Haji MD - Last Filed: 11/20/21 17:12> Critical Care Time Critical Care Time Critical Care Time: Yes <Mari Haji MD - Last Filed: 11/20/21 17:12> Total Critical Care Time: 90 <Mari Haji MD - Last Filed: 11/20/21 17:12> Attestation: 90 minutes were spent in direct patient care, stabilization and consults <Mari Haji MD - Last Filed: 11/20/21 17:12> Discharge Plan Discharge Clinical Impression: Cerebellar infarction, Chest pain <Mari Haji MD - Last Filed: 11/20/21 17:12> Patient Disposition: Admitted As Inpatient <Mari Haji MD - Last Filed: 11/20/21 17:12> Prescriptions: No Action lisinopril 2.5 mg tablet 2.5 mg PO DAILY Qty: 30 RF: 2 Praluent Pen 75 mg/mL pen injector 75 mg subcut Q2W Qty: 2 RF: 3 cholecalciferol (vitamin D3) [Vitamin D3] 25 mcg (1,000 unit) Tablet 25 mcg PO DAILY RF: 0 Co Q-10 1 tab PO DAILY RF: 0 aspirin 81 mg capsule 81 mg PO DAILY Qty: 60 RF: 0 polyethylene glycol 3350 [Miralax] 17 gram/dose powder 17 g PO DAILY PRN (Reason: constipation) Qty: 238 RF: 0 clopidogrel 75 mg Tablet 75 mg PO DAILY Qty: 30 RF: 0 amlodipine [Norvasc] 10 mg tablet 10 mg PO DAILY Qty: 30 RF: 0 metformin 500 mg tablet extended release 24 hr 1,000 mg PO BID RF: 0 insulin asp prt-insulin aspart 100 unit/mL (70-30) insulin pen 20 unit subcut DAILY RF: 0 (DME) blood sugar diagnostic Strip See Rx Instructions ea Not Applicable BID Qty: 10 RF: 0 glipizide 5 mg tablet extended release 24hr 10 mg PO DAILY RF: 0 docusate sodium [Colace] 100 mg capsule 100 mg PO BID RF: 0 <Mari Haji MD - Last Filed: 11/20/21 17:12>
[2021-11-20 13:06] LABS: Appearance Urine CLEAR; Color Urine OTHER; Glucose Urine UA 100 MG/DL (NEG); Leukocyte Esterase Urine TRACE (NEG); Nitrite Urine NEG (NEG); Specific Gravity - Urine <= 1.005 (1.005-1.025); UACC Culture Trigger YES; Urine Blood NEG (NEG); Urine Ketones NEG (NEG); Urine Protein NEG (NEG-TRACE)
[2021-11-20 13:14] LABS: Renal Epithelial Cells Urine TRACE /LPF; WBC Urine 0-2 /HPF (0-4)
[2021-11-20 13:15] LABS: RBC Urine 0 /HPF (0)
[2021-11-20 13:41] LABS: MANUAL DIFF FLAG NO
[2021-11-20 13:43] LABS: Basophils Absolute Auto 0.1 X10*3/uL (0.0-0.2); Basophils Percent Auto 0.7 % (0-2); Eosinophils Absolute Auto 0.2 X10*3/uL (0.0-0.4); Eosinophils Percent Auto 2.2 % (0-4); Hematocrit 32.8 % (37.0-47.0); Hemoglobin 10.9 g/dl (12.0-16.0); Imm Gran Abs Auto 0.02 X10*3/uL (0.00-0.03); Imm Gran Pct Auto 0.2 % (0.0-0.4); Lymphocytes Absolute Auto 2.6 X10*3/uL (1.2-4.9); Lymphocytes Percent Auto 32.4 % (20-40); Mean Corpuscular HGB Conc 33.2 g/dl (31.0-35.0); Mean Corpuscular Volume 87.2 fL (80.0-98.0); Mean Platelet Volume 11.1 fL (9.4-12.3); Monocytes Absolute Auto 1.1 X10*3/uL (0.1-1.2); Monocytes Percent Auto 13.5 % (2-11); Neutrophils Absolute Auto 4.1 x10*3/uL (2.0-8.3); Platelet Count 328 X10*3/uL (160-400); Red Blood Count 3.76 X10*6/uL (4.20-5.50); White Blood Count 8.1 X10*3/uL (4.8-10.8)
[2021-11-20 13:57] LABS: Alanine Aminotransferase 16 U/L (0-31); Albumin Level 4.2 g/dL (3.5-5.0); Alkaline Phosphatase 51 U/L (39-117); Anion Gap 13 (12-20); Aspartate Amino Transferase 15 U/L (5-31); Bilirubin Direct 0.2 mg/dL (0.0-0.5); Bilirubin Total 0.3 mg/dL (0.0-1.0); Blood Urea Nitrogen 17 mg/dL (9-16); Calcium 9.6 mg/dL (8.4-10.2); Carbon Dioxide 23 mmol/L (22-29); Chloride 102 mmol/L (96-108); Creatinine Clr Calc Pharmacy 35.2; Estimated Glomerular Filt Rate 44; Glucose Random 157 mg/dL (60-115); Potassium 4.4 mmol/L (3.3-5.1); Sodium 134 mmol/L (135-145); Total Protein 7.1 g/dL (6.5-8.0)
[2021-11-20 13:59] LABS: COVID-19 Test Negative (Negative); IDNOW Serial# 9DD0AD1C
[2021-11-20 14:08] LABS: Troponin-I High Sensitivity 148.2 ng/L (<3.5-17.0)
[2021-11-20 15:34] VITALS: BP 169/73; PULSE 85; RESP 19; O2SAT 98
--- NOTE | 2021-11-20 15:44 | MHC.STROKE ---
PATIENT ARRIVED VIA EMS, ONSET OF DIZZINESS AND GAIT AT 0900. CT HEAD AND MRI BRAIN DONE. DR ZEE REVIEWED THE MRI, NO NEW STROKE IN DWI, RECOMMENDING PRN MECLIZINE. I DID REPORT THIS TO DR. LI. I DID CALL THE DAUGHTER MARNIE EARLIER AND INFORMED HER OF THE PLAN OF CARE AT THIS TIME. SHE WILL NEED TO BE UPDATED WHEN ALL REPORTS AND LABS COME BACK.
[2021-11-20 17:33] LABS: Troponin-I High Sensitivity 168.6 ng/L (<3.5-17.0)
--- NOTE | 2021-11-20 17:34 | PHA.MEDREC ---
Pharmacy Consult ? Medication Reconciliation Pharmacy has completed the medication reconciliation. Spoke with patient in the ED. Patient took all AM medications. pt states her next dose of Praluent is due thursday (11/22/21) or thursday (11/23/21)
--- NOTE | 2021-11-20 17:45 | MHC.STROKE ---
Addendum entered by Marce Ram RN 11/20/21 17:58: PATIENT DID MENTION THAT SHE BECAME VERY DIZZY YESTERDAY AT 1000, THAT COULD BE THE ONSET TIME OF THIS NEW EVENT. Original Note: EMS PRE-NOTIFIED AT 1145, ARRIVED AT 1152 FOR LIGHTHEADED, DIZZY, ONSET 0900, PRIOR STROKE WITH TPA GIVEN 11/14/21. SHE IS KNOWN TO THE STROKE SERVICE. CT HEAD DONE, MRI RECOMMENDED BY DR ZEE. I DID SPEAK WITH THE DAUGHTER MARNIE, PRIOR TO THE MRI TO NOTIFY HER OF THE PLAN. THE MRI WAS REVIEWED BY DR DIAZ AND HE IS IDENTIFYING AN AREA IN THE RIGHT PARIETAL OCCIPITAL. DR ZEE ALSO REVIEWED AND THIS COULD BE A NEW EMBOLIC ISCHEMIC STROKE WITH HEMORRHAGIC CONVERSION, OR MALIGNANT EMBOLUS THIS IS NEW SINCE PRIOR ADMIT 11/14/21, HE IS RECOMMENDING A MRI WITH CONTRAST TOMORROW TO R/O TUMOR. HOLD THE PLAVIX AND CAN CONTINUE ASPIRIN, NO NEED TO TRANSFER, FISH AND WILDLIFE BIOLOGIST, ALL STROKE LABS WERE RECENTLY DONE THEREFORE DO NOT NEED TO BE REPEATED. SHE MAY ALSO NEED A CARDIOLOGY CONSULT. SHE PASSED HER NURSING SWALLOW SCREEN. NIHSS = 0, SHE DOES HAVE A SLIGHT RIGHT OCCIPITAL PLUMMER. I DID CALL THE MARNIE AGAIN AND REVIEWED THE SCANS AND PLAN OF CARE WITH HER AND HER MOTHER, JERE WAS ABLE TO SPEAK WITH MARNIE ALSO, I ANSWERED ALL OF HER QUESTIONS AND INITIATED STROKE EDUCATION. I WILL CALL HER TOMORROW AND SHE DOES HAVE MY CELL PHONE NUMBER WELL. I AM AVAILABLE VIA [employer] FOR ANY QUESTIONS. PLEASE ENTER A NEUROLOGY CONSULT ON THE ADMISSION. THANK YOU
[2021-11-20 18:06] VITALS: BP 167/66; PULSE 90; RESP 21; TEMP 36.8; O2SAT 98
--- NOTE | 2021-11-20 18:06 | P.HPHOSP_ITS ---
History of Present Illness Date of Service: 11/20/21 Attending physician on admission: Julius Sandoval Chief Complaint: CVA 86-year-old female patient with past medical history of cerebellar CVA, type 2 diabetes mellitus, aortic stenosis, hypertension hyperlipidemia and vitamin-D deficiency presented to [facility] with a diagnosis of dizziness, headache, she had similar symptoms a week ago- when she came to the hospital and found to have cerebellar stroke- patient received TPa that time, inadition treated for nstemi taht time - subsequently she improved and discharged: Today morning she started to have dizziness again, and felt generalized weak and could not able to stand up initially. She also had some occipital area headache- she had a calling her daughter and subsequently was brought to the hospital. In the hospital she is feeling better -dizziness as well as weakness stanley . patient came with nitroglycerin patch on the chest but otherwise she said she did not had any chest pain or shortness of breath or abdominal pain or fever or chills or nausea or vomiting or diarrhea or blurred vision. ED physician did MRI- and discussed MRI findings with Neurology on-call: impression is probable ischemic stroke cerebellar with hemorrhagic conversion. And patient was given admission due to above. Neurology recommended hold Plavix. not candidate for tPA. Review of Systems Review of Systems: as above. Yes all other systems are reviewed and are nega tive [facility] Medical History Anemia Dyslipidemia Essential hypertension Essential hypertension History of cerebellar stroke Irritable bowel syndrome with constipation Moderate aortic stenosis Surgical menopause Systolic ejection murmur Type 2 diabetes mellitus with peripheral neuropathy Vitamin D deficiency Family History Father No problems noted. Mother No problems noted. Surgical History History of appendectomy Hx of cataract surgery S/P partial hysterectomy Social History Household Members: None Housing: House Do you presently have visiting nurse or other home services: No Alcohol intake: never Patient Tobacco Use Status: Former Tobacco user Tobacco use type: Cigarette Use of substances other than those prescribed or required for medical reasons: No Currently Displaying Signs/Symptoms of Drug Intoxication Withdrawal: No Have you been hit, kicked, punched, or otherwise hurt by someone within the past year? If so, by whom?: No Do you feel safe in your current relationship?: No Current Relationship Is there a partner from a previous relationship who is making you feel unsafe now?: No Are you made to feel afraid or neglected: No Advance Directives: Yes Advance Directives Information Provided: No Advance Directives on File: No Advance Directives Date on File: 11/20/21 Do you have thoughts of harming others: None Do you have a plan to hurt others: No Plan Recently lost weight without trying: No Nutrition Risks: No Nutritional Risk service: No Current occupational status: retired Meds Allergies Allergy/AdvReac Type Severity Reaction Status Date / Time regadenoson [From Lexiscan] AdvReac Severe brief Verified 11/05/21 12:47 second degree heart block type 2 lovastatin AdvReac Unknown muscle pain Verified 10/22/21 14:06 Active Medications: Current Medications Amlodipine Besylate (Amlodipine Besylate 10 Mg Tablet) 10 mg PO DAILY [facility]; Protocol Aspirin (Aspirin Enteric Coated 81 Mg Tablet.Dr) 81 mg PO DAILY [facility] Dextrose (Dextrose 50 % 25 Gm/50 Ml Vial) 25 gm IVPUSH Q15M PRN; Protocol PRN Reason: per Hypoglycemia Standing Ord. Docusate Sodium (Docusate Sodium 100 Mg Capsule) 100 mg PO BID [facility] Glipizide (Glipizide Xl 10 Mg Tab.Er.24) 10 mg PO DAILY [facility] Glucose (Glucose Gel 15 Gm Gel..Gram.) 15 gm PO Q15M PRN; Protocol PRN Reason: per Hypoglycemia Standing Ord. Insulin Human Lispro (Insulin Lispro 100 Unit/Ml 3 Ml Vial) 0 unit SUBCUT QIDACHS [facility]; Protocol Lisinopril (Lisinopril 2.5 Mg Tablet) 2.5 mg PO DAILY [facility]; Protocol Non-Formulary Medication (Coenzyme Q10) 10 mg PO DAILY [facility] Pharmacy Consult (Consult Rx Perform Med Rec) 1 each MISCELLANE ONCE PRN PRN Reason: Consult order Vitamin D (Cholecalciferol (Vitamin D3) 25 Mcg Tablet) 25 mcg PO DAILY [facility] Home Medications Medication Instructions Recorded Confirmed Last Taken Type blood sugar diagnostic #10 ea 02/13/21 11/14/21 Unknown History insulin aspar prot-insulin aspart 20 unit SUBCUT DAILY 02/13/21 11/20/21 History 100 unit/mL (70-30) subcutaneous pen metformin 500 mg tablet,extended 1,000 mg PO BID 02/13/21 11/20/21 11/20/21 History release 24 hr cholecalciferol (vitamin D3) 25 25 mcg PO DAILY 09/06/21 11/20/21 11/20/21 History mcg (1,000 unit) tablet (Vitamin D3) docusate sodium 100 mg capsule 100 mg PO BID 09/19/21 11/20/21 11/19/21 History (Colace) glipizide 5 mg tablet, extended 10 mg PO DAILY tab 09/19/21 11/20/21 11/20/21 History release 24 hr coenzyme Q10 10 mg capsule 10 mg PO DAILY 11/20/21 11/20/21 11/20/21 History Physical Exam Vital Signs and Narrative: Vital Signs: Last Vital Signs Temp 98.0 F 11/20/21 12:33 Pulse 85 11/20/21 15:34 Resp 19 11/20/21 15:34 BP 169/73 H 11/20/21 15:34 Pulse Ox 98 11/20/21 15:34 BMI result Body Mass Index 31.2 Physical exam: Appearance: Alert.? Oriented X3.? not in distress.? Eyes: Pupils equal, round and reactive to light.? Sclera nonicteric.? ENT: Pharynx normal.? Moist mucous membranes. cvs: rrr, [id number] res: clear to auscultation ,no rhonchii or wheezing abd: no rebound or guarding ,nt, bs present. ext pulses present , no cyanosis ,Gait well balanced well coordinated. neuro: axo3 , nonfocal , Clear speech, no facial droop or pronator drift, extremity strength intact and sensation intact, otherwise generally weak. Could able to do finger to nose test okay she said she walked to the bathroom with minimum assistance. Results Labs CBC and Chem 7: 11/21/21 06:00 11/21/21 06:00 Labs: Laboratory Results - last 24 hr 11/20/21 11/20/21 11/20/21 12:57 13:34 13:34 MCV 87.2 MCH 29.0 MCHC 33.2 RDW 14.0 Plt Count 328 MPV 11.1 Immature Gran % (Auto) 0.2 Neut % (Auto) 51.0 Lymph % (Auto) 32.4 [place] % (Auto) 13.5 H Eos % (Auto) 2.2 Baso % (Auto) 0.7 Lymph # (Auto) 2.6 [place] # (Auto) 1.1 Eos # (Auto) 0.2 Baso # (Auto) 0.1 Abs Immat Gran (auto) 0.02 Absolute Neuts (auto) 4.1 Absolute Nucleated RBC 0.000 Nucleated RBC % (auto) 0.0 Anion Gap 13 Estim Creat Clear Calc 35.2 Estimated GFR 44 Random Glucose 157 H Calcium 9.6 Total Bilirubin 0.3 Direct Bilirubin 0.2 AST 15 ALT 16 Alkaline Phosphatase 51 Troponin I High Sens Total Protein 7.1 Albumin 4.2 Urine Color OTHER Urine Appearance CLEAR Urine pH 6.0 Ur Specific [place] <= 1.005 Urine Protein NEG Urine Glucose (UA) 100 H Urine Ketones NEG Urine Blood NEG Urine Nitrite NEG Ur Leukocyte Esterase TRACE H Urine RBC 0 Urine WBC 0-2 Ur Squamous Epith Cells NONE Ur Renal Epithelial Cell TRACE Urine Bacteria NONE COVID-19 ([facility]) COVID-19 Clin Com 11/20/21 11/20/21 11/20/21 13:34 13:34 16:58 MCV MCH MCHC RDW Plt Count MPV Immature Gran % (Auto) Neut % (Auto) Lymph % (Auto) [place] % (Auto) Eos % (Auto) Baso % (Auto) Lymph # (Auto) [place] # (Auto) Eos # (Auto) Baso # (Auto) Abs Immat Gran (auto) Absolute Neuts (auto) Absolute Nucleated RBC Nucleated RBC % (auto) Anion Gap Estim Creat Clear Calc Estimated GFR Random Glucose Calcium Total Bilirubin Direct Bilirubin AST ALT Alkaline Phosphatase Troponin I High Sens 148.2 H* D 168.6 H* Total Protein Albumin Urine Color Urine Appearance Urine pH Ur Specific [place] Urine Protein Urine Glucose (UA) Urine Ketones Urine Blood Urine Nitrite Ur Leukocyte Esterase Urine RBC Urine WBC Ur Squamous Epith Cells Ur Renal Epithelial Cell Urine Bacteria COVID-19 ([facility]) Negative COVID-19 Clin Com See Note Imaging Radiologist's Impressions: Impressions Head CT 11/20/21 13:16 IMPRESSION: No acute intracranial abnormality. Brain MRI 11/20/21 15:15 IMPRESSION: - Since the previous MRI, there has been interval development of a small focus of cortically-based hemorrhage with surrounding edema at the right parieto-occipital lobe junction measuring 1.2 cm. - Evolving acute on chronic left cerebellar infarct with new susceptibility signal within the acute portion of the infarct keeping with mild hemorrhagic transformation without significant mass effect. 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 Findings discussed with Dr. Mari Haji at 3:52 PM on 11/20/2021. Assessment and Plan (1) Cerebellar infarction: Status: Acute 86-year-old female patient with past medical history of cerebellar CVA, type 2 diabetes mellitus, aortic stenosis, hypertension hyperlipidemia and vitamin-D deficiency presented to [facility] with a diagnosis of dizziness- lab imaging reviewed personally and interpreted. H&H is stable around 10.9 range BUN 17 creatinine 1.17 EKG unchanged from before, mild elevation in troponin, MRI shows acute on chronic cerebellar CVA. 1. 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 diabetes: Fingersticks with coverage. 3. htn: continue home medications 4. recent NSTEMI: monitor on tele, also monitor for chest pain EKG unchanged, troponin seems residue all from Recent NSTEMI. continue aspirin, statin, blood pressure medication, will need cardiology eval. 5. DVT prophylaxis with mechanical devices since patient has MRSA conversion stroke. above management discussed with the patient in detail length she understand and in agreement with the above plan, code status full code, time spent 70 minute. Quality Stroke Does the patient have a stroke diagnosis?: No VTE Prior VTE?: No VTE Risk Level:: Medical - moderate - high VTE Device Contraindication: N/A - Device Ordered VTE Drug Contraindication: N/A - Med Ordered
[2021-11-20 20:16] VITALS: BMI 30.2
[2021-11-20 20:27] VITALS: BP 145/65; PULSE 86; RESP 16; TEMP 36.1; O2SAT 95
[2021-11-20 20:42] LABS: Glucose, Whole Blood 226 mg/dL (60-115)
[2021-11-20] MEDS: Insulin Lispro 100 UNIT/ML 3 ML VIAL SUBCUT (20:45)
[2021-11-21] VITALS (16 sets, daily range): BP systolic 93–187; BP diastolic 56–84; PULSE 82–96; RESP 17–20; TEMP 36.3–37.1; O2SAT 96–99
[2021-11-21 06:27] LABS: MANUAL DIFF FLAG NO
[2021-11-21 06:53] LABS: Basophils Percent Auto 0.6 % (0-2); Eosinophils Absolute Auto 0.2 X10*3/uL (0.0-0.4); Eosinophils Percent Auto 3.2 % (0-4); Hematocrit 31.2 % (37.0-47.0); Hemoglobin 10.3 g/dl (12.0-16.0); Imm Gran Abs Auto 0.01 X10*3/uL (0.00-0.03); Imm Gran Pct Auto 0.1 % (0.0-0.4); Lymphocytes Absolute Auto 2.3 X10*3/uL (1.2-4.9); Lymphocytes Percent Auto 34.1 % (20-40); Mean Corpuscular Hemoglobin 28.5 pg (27.0-33.0); Mean Corpuscular Volume 86.2 fL (80.0-98.0); Mean Platelet Volume 11.7 fL (9.4-12.3); Monocytes Absolute Auto 1.1 X10*3/uL (0.1-1.2); Monocytes Percent Auto 16.4 % (2-11); Neutrophils Absolute Auto 3.1 x10*3/uL (2.0-8.3); Neutrophils Percent Auto 45.6 % (45-73); Platelet Count 312 X10*3/uL (160-400); Red Blood Count 3.62 X10*6/uL (4.20-5.50); Red Cell Distribution Width 13.8 % (11.0-16.0); White Blood Count 6.8 X10*3/uL (4.8-10.8)
[2021-11-21 07:00] LABS: Anion Gap 12 (12-20); Blood Urea Nitrogen 15 mg/dL (9-16); Carbon Dioxide 23 mmol/L (22-29); Chloride 103 mmol/L (96-108); Cholesterol 217 mg/dL; Creatinine Clr Calc Pharmacy 38.5; Estimated Glomerular Filt Rate 50; Glucose Random 168 mg/dL (60-115); HDL Cholesterol 40 mg/dL; LDL Cholesterol Calculated 146 mg/dl; Potassium 4.5 mmol/L (3.3-5.1); Sodium 133 mmol/L (135-145); Triglycerides 159 mg/dL
[2021-11-21 07:24] LABS: Glucose, Whole Blood 174 mg/dL (60-115)
--- NOTE | 2021-11-21 08:01 | PC.NURSE ---
OK TO TAKE [employer]PERVISOR OFF FOR MRI PER DR WOODWARD
--- NOTE | 2021-11-21 08:14 | P.PNIM_ITS ---
Subjective Subjective Date of Service: 11/21/21 Physical Exam Vital Signs: Vital Signs: Last Vital Signs Temp 97.4 F 11/21/21 07:13 Pulse 82 11/21/21 07:13 Resp 18 11/21/21 07:13 BP 137/63 11/21/21 07:13 Pulse Ox 96 11/21/21 07:13 BMI result Body Mass Index 30.2 Objective Data Active Medications Amlodipine Besylate (Amlodipine Besylate 10 Mg Tablet) 10 mg PO DAILY [facility]; Protocol Aspirin (Aspirin Enteric Coated 81 Mg Tablet.Dr) 81 mg PO DAILY [facility] Dextrose (Dextrose 50 % 25 Gm/50 Ml Vial) 25 gm IVPUSH Q15M PRN; Protocol PRN Reason: per Hypoglycemia Standing Ord. Docusate Sodium (Docusate Sodium 100 Mg Capsule) 100 mg PO BID [facility] Last Admin: 11/20/21 20:45 Dose: Not Given Documented by: ELENA Non-Admin Reason: Patient Refused Glipizide (Glipizide Xl 10 Mg Tab.Er.24) 10 mg PO DAILY [facility] Glucose (Glucose Gel 15 Gm Gel..Gram.) 15 gm PO Q15M PRN; Protocol PRN Reason: per Hypoglycemia Standing Ord. Insulin Human Lispro (Insulin Lispro 100 Unit/Ml 3 Ml Vial) 0 unit SUBCUT QIDACHS [facility]; Protocol Last Admin: 11/20/21 20:45 Dose: 4 unit Documented by: ELENA Lisinopril (Lisinopril 2.5 Mg Tablet) 2.5 mg PO DAILY [facility]; Protocol Pharmacy Consult (Consult Rx Perform Med Rec) 1 each MISCELLANE ONCE PRN PRN Reason: Consult order Vitamin D (Cholecalciferol (Vitamin D3) 25 Mcg Tablet) 25 mcg PO DAILY [facility] Labs CBC & Chem 7: 11/21/21 06:00 11/21/21 06:00 Labs: Laboratory Results - last 24 hr 11/20/21 11/20/21 11/20/21 12:57 13:34 13:34 MCV 87.2 MCH 29.0 MCHC 33.2 RDW 14.0 Plt Count 328 MPV 11.1 Immature Gran % (Auto) 0.2 Neut % (Auto) 51.0 Lymph % (Auto) 32.4 [place] % (Auto) 13.5 H Eos % (Auto) 2.2 Baso % (Auto) 0.7 Lymph # (Auto) 2.6 [place] # (Auto) 1.1 Eos # (Auto) 0.2 Baso # (Auto) 0.1 Abs Immat Gran (auto) 0.02 Absolute Neuts (auto) 4.1 Absolute Nucleated RBC 0.000 Nucleated RBC % (auto) 0.0 Anion Gap 13 Estim Creat Clear Calc 35.2 Estimated GFR 44 POC Glucose Random Glucose 157 H Calcium 9.6 Total Bilirubin 0.3 Direct Bilirubin 0.2 AST 15 ALT 16 Alkaline Phosphatase 51 Troponin I High Sens Total Protein 7.1 Albumin 4.2 Triglycerides Cholesterol LDL Cholesterol, Calc HDL Cholesterol Urine Color OTHER Urine Appearance CLEAR Urine pH 6.0 Ur Specific [place] <= 1.005 Urine Protein NEG Urine Glucose (UA) 100 H Urine Ketones NEG Urine Blood NEG Urine Nitrite NEG Ur Leukocyte Esterase TRACE H Urine RBC 0 Urine WBC 0-2 Ur Squamous Epith Cells NONE Ur Renal Epithelial Cell TRACE Urine Bacteria NONE COVID-19 ([facility]) COVID-[employer] 11/20/21 11/20/21 11/20/21 13:34 13:34 16:58 MCV MCH MCHC RDW Plt Count MPV Immature Gran % (Auto) Neut % (Auto) Lymph % (Auto) [place] % (Auto) Eos % (Auto) Baso % (Auto) Lymph # (Auto) [place] # (Auto) Eos # (Auto) Baso # (Auto) Abs Immat Gran (auto) Absolute Neuts (auto) Absolute Nucleated RBC Nucleated RBC % (auto) Anion Gap Estim Creat Clear Calc Estimated GFR POC Glucose Random Glucose Calcium Total Bilirubin Direct Bilirubin AST ALT Alkaline Phosphatase Troponin I High Sens 148.2 H* D 168.6 H* Total Protein Albumin Triglycerides Cholesterol LDL Cholesterol, Calc HDL Cholesterol Urine Color Urine Appearance Urine pH Ur Specific [place] Urine Protein Urine Glucose (UA) Urine Ketones Urine Blood Urine Nitrite Ur Leukocyte Esterase Urine RBC Urine WBC Ur Squamous Epith Cells Ur Renal Epithelial Cell Urine Bacteria COVID-19 ([facility]NA) Negative COVID-[employer] See Note 11/20/21 11/21/21 11/21/21 20:38 06:00 06:00 MCV 86.2 MCH 28.5 MCHC 33.0 RDW 13.8 Plt Count 312 MPV 11.7 Immature Gran % (Auto) 0.1 Neut % (Auto) 45.6 Lymph % (Auto) 34.1 [place] % (Auto) 16.4 H Eos % (Auto) 3.2 Baso % (Auto) 0.6 Lymph # (Auto) 2.3 [place] # (Auto) 1.1 Eos # (Auto) 0.2 Baso # (Auto) 0.0 Abs Immat Gran (auto) 0.01 Absolute Neuts (auto) 3.1 Absolute Nucleated RBC 0.000 Nucleated RBC % (auto) 0.0 Anion Gap 12 Estim Creat Clear Calc 38.5 Estimated GFR 50 POC Glucose 226 H Random Glucose 168 H Calcium 9.0 D Total Bilirubin Direct Bilirubin AST ALT Alkaline Phosphatase Troponin I High Sens Total Protein Albumin Triglycerides 159 Cholesterol 217 LDL Cholesterol, Calc 146 HDL Cholesterol 40 Urine Color Urine Appearance Urine pH Ur Specific [place] Urine Protein Urine Glucose (UA) Urine Ketones Urine Blood Urine Nitrite Ur Leukocyte Esterase Urine RBC Urine WBC Ur Squamous Epith Cells Ur Renal Epithelial Cell Urine Bacteria COVID-19 ([facility]) COVID-19 Clin Com 11/21/21 07:15 MCV MCH MCHC RDW Plt Count MPV Immature Gran % (Auto) Neut % (Auto) Lymph % (Auto) [place] % (Auto) Eos % (Auto) Baso % (Auto) Lymph # (Auto) [place] # (Auto) Eos # (Auto) Baso # (Auto) Abs Immat Gran (auto) Absolute Neuts (auto) Absolute Nucleated RBC Nucleated RBC % (auto) Anion Gap Estim Creat Clear Calc Estimated GFR POC Glucose 174 H Random Glucose Calcium Total Bilirubin Direct Bilirubin AST ALT Alkaline Phosphatase Troponin I High Sens Total Protein Albumin Triglycerides Cholesterol LDL Cholesterol, Calc HDL Cholesterol Urine Color Urine Appearance Urine pH Ur Specific [place] Urine Protein Urine Glucose (UA) Urine Ketones Urine Blood Urine Nitrite Ur Leukocyte Esterase Urine RBC Urine WBC Ur Squamous Epith Cells Ur Renal Epithelial Cell Urine Bacteria COVID-19 ([facility]) COVID-19 Clin Com Assessment and Plan (1) Cerebellar infarction: Status: Acute Assessment and Plan: 86-year-old female patient with past medical history of cerebellar CVA, type 2 diabetes mellitus, aortic stenosis, hypertension hyperlipidemia and vitamin-D deficiency presented to [facility] with a diagnosis of dizziness- ?lab imaging reviewed personally and interpreted. ? 1. 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 ED discussed the case with Neurology: ?neuro check ?blood pressure control ? Orthostasis neg Neurology evaluation-Continue aspirin statin, hold Plavix Cardio recommended continue above management, monitor tele, The new area stroke with hemorrhagic transformation on the right side in the parieto- occipital lobe raises concern for embolic CVA. cardio recomendations -if neuro feels strongly that this is embolic then I think we should consider anticoagulation with Eliquis or Xarelto.? The timing of starting anticoagulation will have to be determined by Neurology because of the hemorrhagic transformation in 2 areas so we give enough time for the hemorrhage to improve. 2. diabetes:? Fingersticks with coverage. 3. htn: continue home medications 4. recent NSTEMI: ?monitor on tele, also monitor for chest pain ? EKG unchanged, troponin seems residue all from ? Recent NSTEMI. ?continue aspirin, statin, blood pressure medication,? will need cardiology eval. 5.? DVT prophylaxis with mechanical devices since patient has cva with haemorragic conversion. Assessment and Plan: 86-year-old female patient with past medical history of cerebellar CVA, type 2 diabetes mellitus, aortic stenosis, hypertension hyperlipidemia and vitamin-D deficiency presented to [facility] with a diagnosis of dizziness- ?lab imaging reviewed personally and interpreted. 1. 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 no Orthostasis Neurology evaluation noted -moniter on tele -Continue aspirin statin, hold Plavix: added cardiology eval-since reccurrent stroke -further investigate her for cardiac source of embolism?: moniter tele . d/w neuro- Recommendation to repeat MRI in month and decide further use of anticoagulation at that point. 2. diabetes:? Fingersticks with coverage. 3. htn: continue home medications 4. recent NSTEMI: ?monitor on tele, also monitor for chest pain ? EKG unchanged, troponin seems residue all from ? Recent NSTEMI. ?continue aspirin, statin, blood pressure medication,? will need cardiology eval. 5.? DVT prophylaxis with mechanical devices since patient has cva with haemorragic conversion stroke. Quality Stroke Does the patient have a stroke diagnosis?: No VTE Prior VTE?: No VTE Risk Level:: Medical - moderate - high VTE Device Contraindication: N/A - Device Ordered VTE Drug Contraindication: N/A - Med Ordered
[2021-11-21 08:32] LABS: Estimated Average Glucose 192 mg/dL; Hemoglobin A1C 197.4276 umol/L; Hemoglobin A1c % 8.3 %
[2021-11-21] MEDS: amLODIPine Besylate 10 MG TABLET PO (08:50)
[2021-11-21] MEDS: glipiZIDE XL 10 MG TAB.ER.24 PO (08:51)
[2021-11-21] MEDS: Insulin Lispro 100 UNIT/ML 3 ML VIAL SUBCUT ×3 (08:51→21:23)
[2021-11-21] MEDS: lisinopriL 2.5 MG TABLET PO (08:51)
[2021-11-21] MEDS: Docusate Sodium 100 MG CAPSULE PO ×2 (08:51→21:24)
[2021-11-21] MEDS: Aspirin Enteric Coated 81 MG TABLET.DR PO (08:51)
[2021-11-21] MEDS: Cholecalciferol (Vitamin D3) 25 MCG TABLET PO (08:52)
--- NOTE | 2021-11-21 09:48 | P.CNNE_ITS ---
History of Present Illness Data of Consult Service Date: 11/21/21 Primary Care Provider: Mojgan Hernandez MD HPI Reason for consult: stroke 86 years old woman who was recently seen in [facility] with acute posterior circulation ischemic infarction that was treated with intravenous tPA. She came back stating that she was having similar symptoms of dizziness again. This happened last night. This morning she was feeling much better with no symptoms. She had an initial CT scan of brain done yesterday that did not reveal any significant abnormality but later on MRI of brain and new lesion was noted. Review of both scans revealed that this lesion was also present on CT scan. To me it was suggestive of small hemorrhagic infarction with small possibility of of metastatic lesion. My suggestion was to obtain an contrast enhanced MRI which was d [facility] Past Medical History Medical History Anemia Dyslipidemia Essential hypertension Essential hypertension History of cerebellar stroke Irritable bowel syndrome with constipation Moderate aortic stenosis Surgical menopause Systolic ejection murmur Type 2 diabetes mellitus with peripheral neuropathy Vitamin D deficiency Family History Family History Father No problems noted. Mother No problems noted. Surgical History Surgical History History of appendectomy Hx of cataract surgery S/P partial hysterectomy Social History Social History Household Members: None Housing: House Do you presently have visiting nurse or other home services: No Alcohol intake: never Patient Tobacco Use Status: Former Tobacco user Tobacco use type: Cigarette Use of substances other than those prescribed or required for medical reasons: No Currently Displaying Signs/Symptoms of Drug Intoxication Withdrawal: No Have you been hit, kicked, punched, or otherwise hurt by someone within the past year? If so, by whom?: No Do you feel safe in your current relationship?: No Current Relationship Is there a partner from a previous relationship who is making you feel unsafe now?: No Are you made to feel afraid or neglected: No Advance Directives: Yes Advance Directives Information Provided: No Advance Directives on File: No Advance Directives Date on File: 11/20/21 Do you have thoughts of harming others: None Do you have a plan to hurt others: No Plan Recently lost weight without trying: No Nutrition Risks: No Nutritional Risk service: No Current occupational status: retired Meds Allergies Allergy/AdvReac Type Severity Reaction Status Date / Time regadenoson [From Lexiscan] AdvReac Severe brief Verified 11/05/21 12:47 second degree heart block type 2 lovastatin AdvReac Unknown muscle pain Verified 10/22/21 14:06 Active Medications: Current Medications Amlodipine Besylate (Amlodipine Besylate 10 Mg Tablet) 10 mg PO DAILY [facility]; Protocol Last Admin: 11/21/21 08:50 Dose: 10 mg Documented by: Aspirin (Aspirin Enteric Coated 81 Mg Tablet.) 81 mg PO DAILY [facility] Last Admin: 11/21/21 08:51 Dose: 81 mg Documented by: Dextrose (Dextrose 50 % 25 Gm/50 Ml Vial) 25 gm IVPUSH Q15M PRN; Protocol PRN Reason: per Hypoglycemia Standing Ord. Docusate Sodium (Docusate Sodium 100 Mg Capsule) 100 mg PO BID [facility] Last Admin: 11/21/21 08:51 Dose: 100 mg Documented by: Glipizide (Glipizide Xl 10 Mg Tab.Er.24) 10 mg PO DAILY [facility] Last Admin: 11/21/21 08:51 Dose: 10 mg Documented by: Glucose (Glucose Gel 15 Gm Gel..Gram.) 15 gm PO Q15M PRN; Protocol PRN Reason: per Hypoglycemia Standing Ord. Insulin Human Lispro (Insulin Lispro 100 Unit/Ml 3 Ml Vial) 0 unit SUBCUT QIDACHS [facility]; Protocol Last Admin: 11/21/21 08:51 Dose: 2 unit Documented by: Lisinopril (Lisinopril 2.5 Mg Tablet) 2.5 mg PO DAILY [facility]; Protocol Last Admin: 11/21/21 08:51 Dose: 2.5 mg Documented by: Pharmacy Consult (Consult Rx Perform Med Rec) 1 each MISCELLANE ONCE PRN PRN Reason: Consult order Vitamin D (Cholecalciferol (Vitamin D3) 25 Mcg Tablet) 25 mcg PO DAILY [facility] Last Admin: 11/21/21 08:52 Dose: 25 mcg Documented by: Home Medications Medication Instructions Recorded Confirmed Last Taken Type blood sugar diagnostic #10 ea 02/13/21 11/14/21 Unknown History insulin aspar prot-insulin aspart 20 unit SUBCUT DAILY 02/13/21 11/20/21 11/20/21 History 100 unit/mL (70-30) subcutaneous pen metformin 500 mg tablet,extended 1,000 mg PO BID 02/13/21 11/20/21 11/20/21 History release 24 hr cholecalciferol (vitamin D3) 25 25 mcg PO DAILY 09/06/21 11/20/21 11/20/21 History mcg (1,000 unit) tablet (Vitamin D3) docusate sodium 100 mg capsule 100 mg PO BID 09/19/21 11/20/21 11/19/21 History (Colace) glipizide 5 mg tablet, extended 10 mg PO DAILY tab 09/19/21 11/20/21 11/20/21 History release 24 hr coenzyme Q10 10 mg capsule 10 mg PO DAILY 11/20/21 11/20/21 11/20/21 History Physical Exam Vital Signs: Vital Signs: Last Vital Signs Temp 97.4 F 11/21/21 07:13 Pulse 94 11/21/21 08:31 Resp 18 11/21/21 07:13 BP 144/68 H 11/21/21 08:31 Pulse Ox 96 11/21/21 07:13 BMI result Body Mass Index 30.2 Neuro: Other: She was alert and awake with normal spontaneity of speech fluency comprehension and affect. She was taking her breakfast without difficulty. There was no focal finding at this time. Results Labs CBC & Chem 7: 11/21/21 06:00 11/21/21 06:00 Labs: Short CBC 11/20/21 11/21/21 Range/Units 13:34 06:00 WBC 8.1 6.8 (4.8-10.8) X10*3/uL Hgb 10.9 L 10.3 L (12.0-16.0) g/dl Hct 32.8 L 31.2 L (37.0-47.0) % Plt Count 328 312 (160-400) X10*3/uL BMP 11/20/21 11/21/21 13:34 06:00 Sodium 134 L 133 L Potassium 4.4 4.5 Chloride 102 103 Carbon Dioxide 23 23 BUN 17 H 15 Creatinine 1.17 1.05 Calcium 9.6 9.0 D Liver Function 11/20/21 Range/Units 13:34 Total Bilirubin 0.3 (0.0-1.0) mg/dL Direct Bilirubin 0.2 (0.0-0.5) mg/dL AST 15 (5-31) U/L ALT 16 (0-31) U/L Alkaline Phosphatase 51 (39-117) U/L Albumin 4.2 (3.5-5.0) g/dL Urine 11/20/21 Range/Units 12:57 Urine Color OTHER Urine Appearance CLEAR Urine pH 6.0 (5.0-8.0) Ur Specific [place] <= 1.005 (1.005-1.025) Urine Protein NEG (NEG-TRACE) MG/DL Urine Glucose (UA) 100 H (NEG) MG/DL Her initial CT scan yesterday revealed a small right parietal occipital area mixed density lesion probably a small subacute hemorrhagic infarction. In same area MRI revealed corresponding lesion with significant flare surrounding signal. MRI with contrast was done that showed wendy reform enhancement in that area and also in lesions and cerebellum. Assessment and Plan (1) Embolic stroke: Status: Acute 86 years old woman who recently was treated with tPA for a cerebellar infarct. She came back to emergency room with acute onset of dizziness and was noted to have a subacute right parietal occipital small lesion, which probably would not explain her symptoms. Further imaging suggested that it was probably hemorrhagic ischemic infarction. At this time my recommendation is to investigate her for cardiac source of embolism and give her aspirin 81 mg daily and discontinue Plavix. An MRI of brain without contrast should be repeated in a month time for follow-up of these lesions and to make sure there was no other etiology such as metastatic disease. Procedures Date of Service Date of Service: 11/21/21
[2021-11-21 11:01] LABS: Glucose, Whole Blood 333 mg/dL (60-115)
--- NOTE | 2021-11-21 12:03 | P.CONCA_ITS ---
History of Present Illness History of Present Illness Date of Service: 11/21/21 Requesting physician: Julius Sandoval Chief complaint: cva, positive troponin Narrative: 86-year-old female who was recently seen at [facility] with CVA and positive troponins. She was thought to have NSTEMI and was treated medically and went home on aspirin and Plavix. She had recent echocardiography which did not show any significant wall motion and showed normal LV function. She also had stress testing in mid October which showed basal inferior inferolateral fixed defect with differentials of artifact versus old [place]. She is presenting with dizziness and headache. A similar symptoms a week ago. She had tPA given at that time. She said she was feeling weak and just could not stand up. She also was feeling off balance. In the ER she had repeat MRI and there was concern for ischemic cerebellar stroke with hemorrhagic transformation. She was not given tPA. Her Plavix was stopped. She is saying she had an odd sensation in her chest when she had these symptoms and described it as a hollow feeling in her chest. No chest discomfort or pain was reported. She is denying any shortness of breath. [facility] Past Medical History Medical History Anemia Dyslipidemia Essential hypertension Essential hypertension History of cerebellar stroke Irritable bowel syndrome with constipation Moderate aortic stenosis Surgical menopause Systolic ejection murmur Type 2 diabetes mellitus with peripheral neuropathy Vitamin D deficiency Family History Family History Father No problems noted. Mother No problems noted. Surgical History Surgical History History of appendectomy Hx of cataract surgery S/P partial hysterectomy Social History Social History Household Members: None Housing: House Do you presently have visiting nurse or other home services: No Alcohol intake: never Patient Tobacco Use Status: Former Tobacco user Tobacco use type: Cigarette Use of substances other than those prescribed or required for medical reasons: No Currently Displaying Signs/Symptoms of Drug Intoxication Withdrawal: No Have you been hit, kicked, punched, or otherwise hurt by someone within the past year? If so, by whom?: No Do you feel safe in your current relationship?: No Current Relationship Is there a partner from a previous relationship who is making you feel unsafe now?: No Are you made to feel afraid or neglected: No Advance Directives: Yes Advance Directives Information Provided: No Advance Directives on File: No Advance Directives Date on File: 11/20/21 Do you have thoughts of harming others: None Do you have a plan to hurt others: No Plan Recently lost weight without trying: No Nutrition Risks: No Nutritional Risk service: No Current occupational status: retired Meds Allergies Allergy/AdvReac Type Severity Reaction Status Date / Time regadenoson [From Lexiscan] AdvReac Severe brief Verified 11/05/21 12:47 second degree heart block type 2 lovastatin AdvReac Unknown muscle pain Verified 10/22/21 14:06 Active Medications: Current Medications Amlodipine Besylate (Amlodipine Besylate 10 Mg Tablet) 10 mg PO DAILY [facility]; Protocol Last Admin: 11/21/21 08:50 Dose: 10 mg Documented by: Aspirin (Aspirin Enteric Coated 81 Mg Tablet.) 81 mg PO DAILY [facility] Last Admin: 11/21/21 08:51 Dose: 81 mg Documented by: Dextrose (Dextrose 50 % 25 Gm/50 Ml Vial) 25 gm IVPUSH Q15M PRN; Protocol PRN Reason: per Hypoglycemia Standing Ord. Docusate Sodium (Docusate Sodium 100 Mg Capsule) 100 mg PO BID [facility] Last Admin: 11/21/21 08:51 Dose: 100 mg Documented by: Glipizide (Glipizide Xl 10 Mg Tab.Er.24) 10 mg PO DAILY [facility] Last Admin: 11/21/21 08:51 Dose: 10 mg Documented by: Glucose (Glucose Gel 15 Gm Gel..Gram.) 15 gm PO Q15M PRN; Protocol PRN Reason: per Hypoglycemia Standing Ord. Insulin Human Lispro (Insulin Lispro 100 Unit/Ml 3 Ml Vial) 0 unit SUBCUT QIDACHS [facility]; Protocol Last Admin: 11/21/21 08:51 Dose: 2 unit Documented by: Lisinopril (Lisinopril 2.5 Mg Tablet) 2.5 mg PO DAILY [facility]; Protocol Last Admin: 11/21/21 08:51 Dose: 2.5 mg Documented by: Pharmacy Consult (Consult Rx Perform Med Rec) 1 each MISCELLANE ONCE PRN PRN Reason: Consult order Vitamin D (Cholecalciferol (Vitamin D3) 25 Mcg Tablet) 25 mcg PO DAILY [facility] Last Admin: 11/21/21 08:52 Dose: 25 mcg Documented by: Home Medications Medication Instructions Recorded Confirmed Last Taken Type blood sugar diagnostic #10 ea 02/13/21 11/14/21 Unknown History insulin aspar prot-insulin aspart 20 unit SUBCUT DAILY 02/13/21 11/20/21 11/20/21 History 100 unit/mL (70-30) subcutaneous pen metformin 500 mg tablet,extended 1,000 mg PO BID 02/13/21 11/20/21 11/20/21 History release 24 hr cholecalciferol (vitamin D3) 25 25 mcg PO DAILY 09/06/21 11/20/21 11/20/21 History mcg (1,000 unit) tablet (Vitamin D3) docusate sodium 100 mg capsule 100 mg PO BID 09/19/21 11/20/21 11/19/21 History (Colace) glipizide 5 mg tablet, extended 10 mg PO DAILY tab 09/19/21 11/20/21 11/20/21 History release 24 hr coenzyme Q10 10 mg capsule 10 mg PO DAILY 11/20/21 11/20/21 11/20/21 History Physical Exam Vital Signs: Vital Signs: Last Vital Signs Temp 98.1 F 11/21/21 10:56 Pulse 84 11/21/21 10:56 Resp 18 11/21/21 10:56 BP 138/67 11/21/21 10:56 Pulse Ox 98 11/21/21 10:56 BMI result Body Mass Index 30.2 GENERAL APPEARANCE: in no acute distress, pleasant. NECK: no carotid bruit, no jugular venous distention. SKIN: no suspicious lesions, warm and dry. HEART: Systolic murmur aortic area with preserved 2nd heart sound regular rate and rhythm. LUNGS: clear to auscultation bilaterally. ABDOMEN: soft, nontender. EXTREMITIES: no edema. PERIPHERAL PULSES: equal. NEUROLOGIC: No gross deficits, AAO X 3 Objective Labs and Meds Result diagrams: 11/21/21 06:00 11/21/21 06:00 Lab results: Laboratory Results - last 24 hr 11/20/21 11/20/21 11/20/21 12:57 13:34 13:34 WBC 8.1 RBC 3.76 L Hgb 10.9 L Hct 32.8 L MCV 87.2 MCH 29.0 MCHC 33.2 RDW 14.0 Plt Count 328 MPV 11.1 Immature Gran % (Auto) 0.2 Neut % (Auto) 51.0 Lymph % (Auto) 32.4 Stark % (Auto) 13.5 H Eos % (Auto) 2.2 Baso % (Auto) 0.7 Lymph # (Auto) 2.6 Stark # (Auto) 1.1 Eos # (Auto) 0.2 Baso # (Auto) 0.1 Abs Immat Gran (auto) 0.02 Absolute Neuts (auto) 4.1 Absolute Nucleated RBC 0.000 Nucleated RBC % (auto) 0.0 Sodium 134 L Potassium 4.4 Chloride 102 Carbon Dioxide 23 Anion Gap 13 BUN 17 H Creatinine 1.17 Estim Creat Clear Calc 35.2 Estimated GFR 44 POC Glucose Random Glucose 157 H Estimat Average Glucose Hemoglobin A1c % Calcium 9.6 Total Bilirubin 0.3 Direct Bilirubin 0.2 AST 15 ALT 16 Alkaline Phosphatase 51 Troponin I High Sens Total Protein 7.1 Albumin 4.2 Triglycerides Cholesterol LDL Cholesterol, Calc HDL Cholesterol Urine Color OTHER Urine Appearance CLEAR Urine pH 6.0 Ur Specific [place] <= 1.005 Urine Protein NEG Urine Glucose (UA) 100 H Urine Ketones NEG Urine Blood NEG Urine Nitrite NEG Ur Leukocyte Esterase TRACE H Urine RBC 0 Urine WBC 0-2 Ur Squamous Epith Cells NONE Ur Renal Epithelial Cell TRACE Urine Bacteria NONE COVID-19 ([facility]) COVID-19 Clin Com 11/20/21 11/20/21 11/20/21 13:34 13:34 13:34 WBC RBC Hgb Hct MCV MCH MCHC RDW Plt Count MPV Immature Gran % (Auto) Neut % (Auto) Lymph % (Auto) Stark % (Auto) Eos % (Auto) Baso % (Auto) Lymph # (Auto) Stark # (Auto) Eos # (Auto) Baso # (Auto) Abs Immat Gran (auto) Absolute Neuts (auto) Absolute Nucleated RBC Nucleated RBC % (auto) Sodium Potassium Chloride Carbon Dioxide Anion Gap BUN Creatinine Estim Creat Clear Calc Estimated GFR POC Glucose Random Glucose Estimat Average Glucose 192 Hemoglobin A1c % 8.3 Calcium Total Bilirubin Direct Bilirubin AST ALT Alkaline Phosphatase Troponin I High Sens 148.2 H* D Total Protein Albumin Triglycerides Cholesterol LDL Cholesterol, Calc HDL Cholesterol Urine Color Urine Appearance Urine pH Ur Specific [place] Urine Protein Urine Glucose (UA) Urine Ketones Urine Blood Urine Nitrite Ur Leukocyte Esterase Urine RBC Urine WBC Ur Squamous Epith Cells Ur Renal Epithelial Cell Urine Bacteria COVID-19 ([facility]) Negative COVID-19 Clin Com See Note 11/20/21 11/20/21 11/21/21 16:58 20:38 06:00 WBC 6.8 RBC 3.62 L Hgb 10.3 L Hct 31.2 L MCV 86.2 MCH 28.5 MCHC 33.0 RDW 13.8 Plt Count 312 MPV 11.7 Immature Gran % (Auto) 0.1 Neut % (Auto) 45.6 Lymph % (Auto) 34.1 Stark % (Auto) 16.4 H Eos % (Auto) 3.2 Baso % (Auto) 0.6 Lymph # (Auto) 2.3 Stark # (Auto) 1.1 Eos # (Auto) 0.2 Baso # (Auto) 0.0 Abs Immat Gran (auto) 0.01 Absolute Neuts (auto) 3.1 Absolute Nucleated RBC 0.000 Nucleated RBC % (auto) 0.0 Sodium Potassium Chloride Carbon Dioxide Anion Gap BUN Creatinine Estim Creat Clear Calc Estimated GFR POC Glucose 226 H Random Glucose Estimat Average Glucose Hemoglobin A1c % Calcium Total Bilirubin Direct Bilirubin AST ALT Alkaline Phosphatase Troponin I High Sens 168.6 H* Total Protein Albumin Triglycerides Cholesterol LDL Cholesterol, Calc HDL Cholesterol Urine Color Urine Appearance Urine pH Ur Specific [place] Urine Protein Urine Glucose (UA) Urine Ketones Urine Blood Urine Nitrite Ur Leukocyte Esterase Urine RBC Urine WBC Ur Squamous Epith Cells Ur Renal Epithelial Cell Urine Bacteria COVID-19 ([facility]) COVID-19 Clin Com 11/21/21 11/21/21 11/21/21 06:00 07:15 10:58 WBC RBC Hgb Hct MCV MCH MCHC RDW Plt Count MPV Immature Gran % (Auto) Neut % (Auto) Lymph % (Auto) Stark % (Auto) Eos % (Auto) Baso % (Auto) Lymph # (Auto) Stark # (Auto) Eos # (Auto) Baso # (Auto) Abs Immat Gran (auto) Absolute Neuts (auto) Absolute Nucleated RBC Nucleated RBC % (auto) Sodium 133 L Potassium 4.5 Chloride 103 Carbon Dioxide 23 Anion Gap 12 BUN 15 Creatinine 1.05 Estim Creat Clear Calc 38.5 Estimated GFR 50 POC Glucose 174 H 333 H Random Glucose 168 H Estimat Average Glucose Hemoglobin A1c % Calcium 9.0 D Total Bilirubin Direct Bilirubin AST ALT Alkaline Phosphatase Troponin I High Sens Total Protein Albumin Triglycerides 159 Cholesterol 217 LDL Cholesterol, Calc 146 HDL Cholesterol 40 Urine Color Urine Appearance Urine pH Ur Specific [place] Urine Protein Urine Glucose (UA) Urine Ketones Urine Blood Urine Nitrite Ur Leukocyte Esterase Urine RBC Urine WBC Ur Squamous Epith Cells Ur Renal Epithelial Cell Urine Bacteria COVID-19 ([facility]) COVID-19 Clin Com Imaging Radiologist's impression: Impressions Head CT 11/20/21 13:16 IMPRESSION: No acute intracranial abnormality. Brain MRI 11/20/21 15:15 IMPRESSION: - Since the previous MRI, there has been interval development of a small focus of cortically-based hemorrhage with surrounding edema at the right parieto-occipital lobe junction measuring 1.2 cm. - Evolving acute on chronic left cerebellar infarct with new susceptibility signal within the acute portion of the infarct keeping with mild hemorrhagic transformation without significant mass effect. 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 Findings discussed with Dr. Mari Haji at 3:52 PM on 11/20/2021. Brain MRI 11/21/21 08:21 FINDINGS/IMPRESSION: - There is gyriform-like enhancement surrounding the focus of intraparenchymal hemorrhage located within the right parieto-occipital lobe junction seen on yesterday's MRI, likely indicative of hemorrhagic transformation of an infarct in this location. I suspect the size of the hemorrhage in this location is likely unchanged though is limitedly assessed on this limited postcontrast MRI. A 6-8 week follow-up MRI of the brain is recommended to document resolution of this enhancement and exclude alternative etiologies. - There is also enhancement along the periphery of infarcts within the inferomedial left cerebellar hemisphere, most likely attributable to blood brain barrier breakdown in the setting of infarction that should also be followed as per above. Assessment and Plan (1) Stroke: Status: Acute (2) NSTEMI (non-ST elevated myocardial infarction): Status: Acute 86-year-old female who is presenting with dizziness and atypical chest discomfort. Recent admission approximately a week ago with stroke and at that time she had biomarker evidence of NSTEMI. She was medically treated and went home on aspirin and Plavix. She is now presenting with similar symptoms. MRIs showing small focus of cortically based hemorrhage with surrounding edema at the right parieto-occipital lobe junction measuring 1.2 cm. Also evolving acute on chronic left cerebellar infarct with new susceptibility signal within the acute portion infarct keeping with mild hemorrhagic transformation. 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 I think it is reasonable to hold Plavix in the setting of hemorrhagic transformation. Aspirin can be continued if neuro is agreeable. Please continue to monitor on telemetry to make sure she does not have any atrial fibrillation or atrial flutter. She has atherosclerotic intracranial disease and potentially or left cerebellar stroke is explained by the occluded left vertebral artery. General left vertebral artery is also dominant. The new area stroke with hemorrhagic transformation on the right side in the parieto-occipital lobe raises concern for embolic CVA. I think neuro should been on this. If the feel strongly that this is embolic then I think we should consider anticoagulation with Eliquis or Xarelto. The ti facundo of starting anticoagulation will have to be determined by Neurology because of the hemorrhagic transformation in 2 areas so we give enough time for the hemorrhage to improve. She will need ischemic evaluation as outpatient as her clinical situation improves. Current presentation is not ACS. Thank you for allowing me to participate in the care of your patient. Please feel free to contact me if you have any questions. Procedures Date of Service Date of Service: 11/21/21
--- NOTE | 2021-11-21 12:20 | MHC.SL.SWA ---
Speech Pathologist Impression: Within Functional Limits Risk of Aspiration Due to: Dysphasia Diet Status: No Change Liquid Consistency and Strategies for Safe Swallow: Liquid Intake Recommendation: Thin Liquid Intake Strategies: Unrestricted Solid Food Consistency: Dietary Recommendations: Regular Additional Modifications to Solid Foods: Pt WNL, no restrictions. Oral Medication Intake: Whole with Liquid Compensatory Strategies and Precautions to be Taken for Safe Swallow: Supervision While Eating and Drinking for Safe Swallow: None Needed Foods to Avoid: Swallowing Recommended Treatments: Recommendation for Speech: NA:Typical Evaluation Comment: Pt presents with normal swallow function with no clinical s/s of aspiration on advanced consistencies. Recommend continue on regular diet with thin liquids. No additional speech/lang services needed. D/C at this time. Frequency/Duration: Date Range for Service Req: Timeline to reassess: Beating Machine Operator Clinican/Clinical Fellow: No Supervisory Statement: I have reviewed and agree with the student/clinical fellow's documentation: N/A Speech Language Pathologist: Radha Cuello M.A., CCC-FNPS
--- NOTE | 2021-11-21 12:32 | MHC.STROKE ---
Addendum entered by Marce Ram RN 11/21/21 14:57: WE WALKED THE ENTIRE FLOOR WITH USE OF THE WALKER, SHE IS SAFELY TRANSFERRING FROM CHAIR TO WALKER TO BED. VTE PROPHYLAXIS WITH EARLY AMBULATION, ALSO PNEUMATIC COMPRESSION DEVICES. SHE SAID SHE DOES NOT TOLERATE THE COMPRESSION DEVICE FOR LONG. WE AGAIN DISCUSSED THE DIAGNOSIS, AND DR ZEE'S PLAN OF REPEATING MRI IN ONE MONTH, IF NOT AN EMBOLIC STROKE IT COULD BE ARTERY TO ARTERY EMBOLISM. TYPE OF STROKE IS NOT CONFIRMED AT THIS TIME. SEE HIS NOTE. Original Note: I MET WITH THE PATIENT TODAY AFTER DISCUSSING HER CASE WITH DR ZEE. HE REVIEWED HER MRI WITH CONTRAST. SHE WILL REMAIN OFF PLAVIX AND ONLY ON ASPIRIN 81 FOR ABOUT A MONTH DUE TO ISCHEMIC STROKE WITH HEMORRHAGIC CONVERSION RIGHT OCC/PART AREA. I DID WALK WITH HER AND SHE IS STEADY WHEN USING THE WALKER. I DID CALL HER DAUGHTER MARNIE AND REVIEWED THE PALN OF CARE. PT IS RECOMMENDING HOME PT AND I AM ALSO RECOMMENDING SN. I DID RELAY THIS TO THE GASOLINE LOCOMOTIVE CRANE OPERATOR. DR WOODWARD SAID THEY WILL CONTINUE TO MONITOR FOR ANOTHER DAY. SHE IS C/O CONSTIPATION WHICH IS ONGOING. MONITOR BM'S. I WILL CONTINUE TO FOLLOW.
--- NOTE | 2021-11-21 15:39 | MHC.CM.PN ---
IMM 11/21/21 Female 86 DX CVA She lives alone. She uses a walker. She has a tub bench. She is active with [facility]. DP resume home services with [facility]. Family will provide transportation.
[2021-11-21 16:43] LABS: Glucose, Whole Blood 114 mg/dL (60-115)
[2021-11-21 20:09] LABS: Glucose, Whole Blood 276 mg/dL (60-115)
[2021-11-22 04:00] VITALS: BP 134/58; PULSE 86; RESP 18; TEMP 36.2; O2SAT 97
[2021-11-22 07:43] LABS: Glucose, Whole Blood 140 mg/dL (60-115)
[2021-11-22 08:00] VITALS: BP 136/64; PULSE 84; RESP 19; TEMP 36.4; O2SAT 99
[2021-11-22] MEDS: amLODIPine Besylate 10 MG TABLET PO (08:52)
[2021-11-22] MEDS: glipiZIDE XL 10 MG TAB.ER.24 PO (08:52)
[2021-11-22] MEDS: Cholecalciferol (Vitamin D3) 25 MCG TABLET PO (08:52)
[2021-11-22] MEDS: lisinopriL 2.5 MG TABLET PO (08:52)
[2021-11-22] MEDS: Aspirin Enteric Coated 81 MG TABLET.DR PO (08:52)
[2021-11-22] MEDS: Docusate Sodium 100 MG CAPSULE PO (08:52)
[2021-11-22 09:00] VITALS: BP 112/55; PULSE 88
[2021-11-22 09:01] VITALS: BP 124/58; PULSE 93
--- NOTE | 2021-11-22 11:10 | MHC.CM.PN ---
PT CLEARED TO DC HOME TODAY WITH RESUMPTION OF [facility] TO TRANSPORT
[2021-11-22 11:18] VITALS: BP 121/57; PULSE 85; RESP 18; TEMP 36.4; O2SAT 99
[2021-11-22 11:19] LABS: Glucose, Whole Blood 337 mg/dL (60-115)
--- NOTE | 2021-11-22 11:19 | W.MHC.F2F ---
Service Date Service Date: 11/22/21 Encounter Date of encounter: 11/22/21 Encounter: cva Reasons for Services Reason for senior care: medication management, medication treatment and teach disease management Reason for physical therapy: home safety and mobility, therapeutic exercises, restore joint function, gait/transfer training, assess need for DME, ADL training, energy conservation and other MD Overseeing Care: Mojgan Hernandez Homebound: Leaving the home is medically contraindicated at this time without the asist of a device and/or another person due th the listed conditions above and below. Homebound supporting statement: Patient has recurrent CVA , generalized weak and needed going to appointments. Certification: Based on the above findings, I certify that this patient is confined to the home and needs intermittent senior care care, physical therapy and/or speech therapy, or continues to need occupational therapy. The patient is under my care, and I have initiated the establishment of the plan of care. The patient will be followed by a physician who will periodically review the plan of care.
--- NOTE | 2021-11-22 11:21 | PM.DS ---
DS: Providers Provider Date of Service: 11/22/21 Date of admission: 11/20/21 17:56 Primary care physician: Mojgan Hernandez MD Consults: 11/20/21 17:56 Consult to Neurology Routine Consulting Provider: [facility] Reason for consultation: cva Has provider been notified: No 11/21/21 10:05 Consult to Cardiology Routine Consulting Provider: Tommie Rey Reason for consultation: recuurent cva, recent nstemi Has provider been notified: No DS: Diagnosis Discharge Diagnosis (1) Cerebellar infarction: Status: Acute DS: Summary Hospital Course Hospital Course: 86-year-old female patient with past medical history of cerebellar CVA, type 2 diabetes mellitus, aortic stenosis, hypertension hyperlipidemia and vitamin-D deficiency presented to [facility] with a diagnosis of dizziness, headache,? she had similar symptoms a week ago- when she came to the hospital and found to have cerebellar stroke- patient received TPa? that time, inadition treated for nstemi taht time - subsequently she improved and? discharged: ? Today morning she started to have dizziness again, and felt generalized weak and could not able to stand up initially.? She also had some occipital area headache- she had a calling her daughter and subsequently was brought? to the hospital. ? In the hospital she is feeling better -dizziness as well as weakness stanley . ?patient came with nitroglycerin patch on the chest but otherwise she said she did not had any? chest pain or shortness of breath or abdominal pain or fever or chills or nausea or vomiting or? diarrhea or blurred vision. ? ED physician did MRI-? and discussed MRI findings with? Neurology on-call:? impression is probable ischemic stroke cerebellar with hemorrhagic conversion. ? And patient was given admission due to above.? Neurology recommended hold Plavix. ?not candidate for tPA. Hospital course: Patient was admitted for cerebellar CVA with hemorrhagic conversion. Patient had a MRI with and without contrast: showed probable cerebellar ischemic stroke with hemorrhagic conversion- patient was seen by Neurology as well as Cardiology: recommended to stop Plavix, continue aspirin and statin currently. At this time it is not clear if and embolus she had was from posterior circulation as it is still in that area or from cardiac source.? For now cardiology and neurology recommended continue asa.??neuro will plan to repeat her brain MRI in a month time to help make further decisions for plavix use vs anticoagulation. Cardio may arrange their own appointment- for further Cardiac workup if needed. PT recomended -home with services. Above management discussed with the patient in detail length she understand and in agreement with the above plan, time spent 50 minutes and 50% time spent on counseling. Significant findings: As above. Procedures performed: None. Treatment and response: As above. Complications: None. Time Spent with Patient Time attestation: Total time spent providing and/or coordinating discharge services: Discharge coordination time: Greater than 30 minutes Quality: Stroke Does the patient have a stroke diagnosis?: No Physical Exam Vital Signs: Vital Signs: Last Vital Signs Temp 97.5 F 11/22/21 08:00 Pulse 93 11/22/21 09:01 Resp 19 11/22/21 08:00 BP 124/58 L 11/22/21 09:01 Pulse Ox 99 11/22/21 08:00 BMI result Body Mass Index 30.2 ?Alert.? Oriented X3.? not in distress.? Eyes: Pupils equal, round and reactive to light.? Sclera nonicteric.? ENT: Pharynx normal.? Moist mucous membranes. cvs: rrr, [id number] res: clear to auscultation ,no rhonchii or wheezing abd: no rebound or guarding ,nt, bs present. ext pulses present , no cyanosis ,Gait well balanced well coordinated. neuro: axo3 ,moves all extermites no dizziness sensations intact. DS: Data Data Completed and Pending Labs on day of discharge: Laboratory Results - last 24 hr 11/21/21 11/21/21 11/22/21 16:39 19:41 07:39 POC Glucose 114 276 H 140 H 11/22/21 11:15 POC Glucose 337 H Additional Comments Additional comments: MR/MR head/brain w con FINDINGS/IMPRESSION: - There is gyriform-like enhancement surrounding the focus of intraparenchymal hemorrhage located within the right parieto-occipital lobe junction seen on yesterday's MRI, likely indicative of hemorrhagic transformation of an infarct in this location. I suspect the size of the hemorrhage in this location is likely unchanged though is limitedly assessed on this limited postcontrast MRI. A 6-8 week follow-up MRI of the brain is recommended to document resolution of this enhancement and exclude alternative etiologies. ? - There is also enhancement along the periphery of infarcts within the inferomedial left cerebellar hemisphere, most likely attributable to blood brain barrier breakdown in the setting of infarction that should also be followed as per above. Discharge Plan Discharge Patient Disposition: Home Health Service Discharge Diagnosis: cva reccurrent Referrals: [facility] Avila [Outside] - 1 Week Mojgan Hernandez MD [Primary Care Provider] - 1 Week Lizzy Corado MD [Physician] - 2 Weeks (follow up outpatienty) Discharge Medications: Continued lisinopril 2.5 mg tablet 2.5 mg PO DAILY Qty: 30 RF: 2 Praluent Pen 75 mg/mL pen injector 75 mg subcut Q2W Qty: 2 RF: 3 cholecalciferol (vitamin D3) [Vitamin D3] 25 mcg (1,000 unit) Tablet 25 mcg PO DAILY RF: 0 aspirin 81 mg capsule 81 mg PO DAILY Qty: 60 RF: 0 amlodipine [Norvasc] 10 mg tablet 10 mg PO DAILY Qty: 30 RF: 0 coenzyme Q10 10 mg Capsule 10 mg PO DAILY RF: 0 metformin 500 mg tablet extended release 24 hr 1,000 mg PO BID RF: 0 insulin asp prt-insulin aspart 100 unit/mL (70-30) insulin pen 20 unit subcut DAILY RF: 0 (DME) blood sugar diagnostic Strip See Rx Instructions ea Not Applicable BID Qty: 10 RF: 0 glipizide 5 mg tablet extended release 24hr 10 mg PO DAILY RF: 0 docusate sodium [Colace] 100 mg capsule 100 mg PO BID RF: 0 Discontinued clopidogrel 75 mg Tablet 75 mg PO DAILY Qty: 30 RF: 0 Discharge Orders: Discharge Order (Routine); Ordered 11/22/21 Ordered By: Julius Sandoval Diet: advance to usual diet Activity on Discharge: As tolerated Stand Alone Forms: Patient Portal Discharge page Care Plan Goals: patient came with dizziness found to have cerebellar CVA recurrent- CVA with hemorrhagic conversion. Patient was seen by Neurology as well as cardiology: Plan is to stop Plavix for now, continue asa, statin - further workup for stroke and the use of anticoagulation needs to be decided after repeating MRI in 1 month with Neurology out patiently. above was discussed with the patient in detail she did understand and in agreement with the plan. further management outpatiently with neurology. Health Concerns: as above. Plan of Treatment: as above. Assessment: As above.
[2021-11-22] MEDS: Insulin Lispro 100 UNIT/ML 3 ML VIAL SUBCUT (12:20)
--- NOTE | 2021-11-22 15:42 | PM.PNCARD ---
Subjective Subjective Date of Service: 11/22/21 Interval history: Feeling good. No CP. Dizziness better. Tele- no Afib/flutter. Physical Exam Vital Signs: Last Vital Signs Temp 97.5 F 11/22/21 11:18 Pulse 85 11/22/21 11:18 Resp 18 11/22/21 11:18 BP 121/57 L 11/22/21 11:18 Pulse Ox 99 11/22/21 11:18 BMI result Body Mass Index 30.2 GENERAL APPEARANCE: in no acute distress, pleasant. NECK: no carotid bruit, no jugular venous distention. SKIN: no suspicious lesions, warm and dry. HEART:? Systolic murmur aortic area with preserved 2nd heart sound regular rate and rhythm. LUNGS: clear to auscultation bilaterally. ABDOMEN: soft, nontender. EXTREMITIES: no edema. PERIPHERAL PULSES: equal. NEUROLOGIC: No gross deficits, AAO X 3 Objective Labs and Meds Result diagrams: 11/21/21 06:00 11/21/21 06:00 Lab results: Laboratory Results - last 24 hr 11/21/21 11/21/21 11/22/21 16:39 19:41 07:39 POC Glucose 114 276 H 140 H 11/22/21 11:15 POC Glucose 337 H Progress Note: A&P Assessment and plan (1) NSTEMI (non-ST elevated myocardial infarction): Status: Acute (2) Stroke: Status: Acute Assessment and Plan: 86-year-old with recent CVA and NSTEMI. She was discharged on ASA and plavix and has returned with hemorrhagic conversion of the cerebellar stroke. She also has a new area on CVA with hemorrhage. Off Plavix currently. No clear Afib/ flutter. Apparently she had outpatient Holter monitoring which we will review to see if she has Afib/flutter. Currently not the best time to consider anticoagulation as there is no afib/flutter and she also has significant atherosclerotic cerebral disease. She will f/u with Dr Hunter as outpatient. Neuro plans to repeat MRI in a month. Thank you for allowing me to participate in the care of your patient. Please feel free to contact me if you have any questions. Fall Risk Details Current Medications: Current Medications Amlodipine Besylate (Amlodipine Besylate 10 Mg Tablet) 10 mg PO DAILY [facility]; Protocol Last Admin: 11/22/21 08:52 Dose: 10 mg Documented by: Aspirin (Aspirin Enteric Coated 81 Mg Tablet.Dr) 81 mg PO DAILY [facility] Last Admin: 11/22/21 08:52 Dose: 81 mg Documented by: Dextrose (Dextrose 50 % 25 Gm/50 Ml Vial) 25 gm IVPUSH Q15M PRN; Protocol PRN Reason: per Hypoglycemia Standing Ord. Docusate Sodium (Docusate Sodium 100 Mg Capsule) 100 mg PO BID [facility] Last Admin: 11/22/21 08:52 Dose: 100 mg Documented by: Glipizide (Glipizide Xl 10 Mg Tab.Er.24) 10 mg PO DAILY [facility] Last Admin: 11/22/21 08:52 Dose: 10 mg Documented by: Glucose (Glucose Gel 15 Gm Gel..Gram.) 15 gm PO Q15M PRN; Protocol PRN Reason: per Hypoglycemia Standing Ord. Insulin Human Lispro (Insulin Lispro 100 Unit/Ml 3 Ml Vial) 0 unit SUBCUT QIDACHS [facility]; Protocol Last Admin: 11/22/21 12:20 Dose: 8 unit Documented by: Lisinopril (Lisinopril 2.5 Mg Tablet) 2.5 mg PO DAILY [facility]; Protocol Last Admin: 11/22/21 08:52 Dose: 2.5 mg Documented by: Pharmacy Consult (Consult Rx Perform Med Rec) 1 each MISCELLANE ONCE PRN PRN Reason: Consult order Vitamin D (Cholecalciferol (Vitamin D3) 25 Mcg Tablet) 25 mcg PO DAILY [facility] Last Admin: 11/22/21 08:52 Dose: 25 mcg Documented by: Time Spent With Patient Time: Total time spent is greater than 50% in coordination of care (as documented) at patient's floor/unit and/or counseling patient: Time with patient: 15 - 24 minutes Progress Note: Quality Stroke Does the patient have a stroke diagnosis?: No Procedures Date of Service Date of Service: 11/22/21
[2021-11-22 16:00] VITALS: BP 141/61; PULSE 90; RESP 15; TEMP 36.6; O2SAT 99
[2021-11-22 16:08] LABS: Glucose, Whole Blood 206 mg/dL (60-115)
== END 2021-11-22 18:00 | disposition home health service (06) | DRG 64 ==
LOC: HO.ED 17:12 → HO.EDOVER 18:20 → HO.IMC 18:35
PROVIDERS: Admitting Provider Internal Medicine; Emergency Provider Emergency Medicine; PCP Internal Medicine; Visit Provider Internal Medicine
DX: I63.89 Other cerebral infarction (principal); I61.4 Nontraumatic intracerebral hemorrhage in cerebellum; I21.4 Non-ST elevation (NSTEMI) myocardial infarction; E11.40 Type 2 diabetes mellitus with diabetic neuropathy, unspecified; R29.700 NIHSS score 0; E78.5 Hyperlipidemia, unspecified; I10 Essential (primary) hypertension; Z20.822 Contact with and (suspected) exposure to COVID-19; Z98.2 Presence of cerebrospinal fluid drainage device; Z79.4 Long term (current) use of insulin; Z79.01 Long term (current) use of anticoagulants; Z79.84 Long term (current) use of oral hypoglycemic drugs; Z79.899 Other long term (current) drug therapy
CPT/HCPCS: 36415; 70450; 70551; 70552; 80048; 80061; 80076; 81001; 82947; 83036; 84484; 85025; 87086; 87635; 92610; 93005; 97161; 97165; 99285; 99291; 99292; A9585

== ENCOUNTER → 2021-12-11 13:00 | Outpatient (BNVA) | payer MEDICARE, OTHER, SELFPAY | PROVIDERS: PCP Internal Medicine; Referring Provider Internal Medicine; Visit Provider Internal Medicine | DX: I25.10 Atherosclerotic heart disease of native coronary artery without angina pectoris (principal); I35.0 Nonrheumatic aortic (valve) stenosis; E11.8 Type 2 diabetes mellitus with unspecified complications; I10 Essential (primary) hypertension; E78.5 Hyperlipidemia, unspecified; Z86.73 Personal history of transient ischemic attack (TIA), and cerebral infarction without residual deficits; Z79.4 Long term (current) use of insulin; Z79.899 Other long term (current) drug therapy | CPT/HCPCS: 99212 ==

== ENCOUNTER 2021-12-20 08:40 | Outpatient (REF) | payer MEDICARE, OTHER, SELFPAY ==
[2021-12-20 08:50] VITALS: BMI 30.2
[2021-12-20 08:52] VITALS: BP 133/65; PULSE 65; RESP 16; TEMP 36.7; O2SAT 100
--- NOTE | 2021-12-20 10:23 | P.BOP_ITS ---
Brief Operative Note Date of Service: 12/20/21 Pre-op diagnosis: CVA Post-op diagnosis: same Procedure: Implantable loop recorder placement Implants: After obtaining full informed consent patient was brought to the minor surgery suite. Patient was then laid supine on the table. Patient's left chest area was then prepped and draped in a sterile fashion. Patient was then given 2% lidocaine with epinephrine intradermally and subcutaneously in the 4th intercostal space. A [employer] implantable loop recorder with serial number [id number] was then implanted in the subcutaneous area using Seldinger technique. Measured R-waves at 1.02 mV. The wound was then closed with a Steri-Strip. Pressure bandage was then applied. Patient tolerated the procedure well Surgeon: Mike West MD Anesthesia: local Was an Kosher Inspector used for this Procedure?: No Estimated blood loss (mL): 1 Pathology: none sent Condition: stable Disposition: same day
[2021-12-20 10:25] VITALS: BP 147/55; PULSE 75; RESP 16; O2SAT 98
== END 2021-12-20 08:41 | disposition home or self-care (01) ==
LOC: HO.MS 08:40
PROVIDERS: PCP Internal Medicine; Visit Provider Internal Medicine Cardiovascular Disease
PROC: (CPT 33285; principal; 2021-12-20 09:00)
DX: I63.9 Cerebral infarction, unspecified (principal)
CPT/HCPCS: 33285; C1764

== ENCOUNTER → 2021-12-31 13:35 | Outpatient (BNVA) | payer MEDICARE, OTHER, SELFPAY | PROVIDERS: PCP Internal Medicine; Referring Provider Internal Medicine; Visit Provider Internal Medicine | DX: I25.10 Atherosclerotic heart disease of native coronary artery without angina pectoris (principal); I35.0 Nonrheumatic aortic (valve) stenosis; I10 Essential (primary) hypertension; E11.8 Type 2 diabetes mellitus with unspecified complications; Z86.73 Personal history of transient ischemic attack (TIA), and cerebral infarction without residual deficits | CPT/HCPCS: 99212 ==

== ENCOUNTER 2022-01-13 08:43 | Outpatient (REF) | payer MEDICARE, OTHER, SELFPAY ==
[2022-01-13 11:33] LABS: Alanine Aminotransferase 13 U/L (0-31); Anion Gap 16 (12-20); Aspartate Amino Transferase 14 U/L (5-31); Blood Urea Nitrogen 20 mg/dL (9-16); Calcium 9.3 mg/dL (8.4-10.2); Carbon Dioxide 22 mmol/L (22-29); Chloride 101 mmol/L (96-108); Estimated Glomerular Filt Rate 46; Glucose Random 200 mg/dL (60-115); Potassium 5.4 mmol/L (3.3-5.1); Sodium 134 mmol/L (135-145)
[2022-01-13 11:35] LABS: Alanine Aminotransferase 13 U/L (0-31); Albumin Level 4.1 g/dL (3.5-5.0); Alkaline Phosphatase 52 U/L (39-117); Aspartate Amino Transferase 13 U/L (5-31); Bilirubin Direct 0.2 mg/dL (0.0-0.5); Bilirubin Total 0.5 mg/dL (0.0-1.0); Cholesterol 240 mg/dL; Estimated Average Glucose 197 mg/dL; HDL Cholesterol 48 mg/dL; Hemoglobin A1c % 8.5 %; LDL Cholesterol Calculated 150 mg/dl; Total Protein 7.1 g/dL (6.5-8.0); Triglycerides 210 mg/dL
[2022-01-13 12:05] LABS: Vitamin B12 1483 pg/mL (200-900)
== END 2022-01-13 08:44 | disposition home or self-care (01) ==
LOC: HO.HMGCLDS 08:43
PROVIDERS: Absent Provider Internal Medicine Endocrinology, Diabetes & Metabolism; PCP Internal Medicine; Visit Provider Internal Medicine
DX: I25.10 Atherosclerotic heart disease of native coronary artery without angina pectoris (principal); E11.40 Type 2 diabetes mellitus with diabetic neuropathy, unspecified; E78.5 Hyperlipidemia, unspecified
CPT/HCPCS: 36415; 80048; 80061; 80076; 82607; 83036; 84450; 84460

== ENCOUNTER → 2022-04-23 13:27 | Outpatient (BNVA) | payer MEDICARE, OTHER, SELFPAY | PROVIDERS: PCP Internal Medicine; Referring Provider Internal Medicine; Visit Provider Internal Medicine | DX: I35.0 Nonrheumatic aortic (valve) stenosis (principal); I63.9 Cerebral infarction, unspecified; I10 Essential (primary) hypertension; E11.8 Type 2 diabetes mellitus with unspecified complications; E78.5 Hyperlipidemia, unspecified; Z95.818 Presence of other cardiac implants and grafts | CPT/HCPCS: 99212 ==

== ENCOUNTER 2022-05-12 09:13 | Outpatient (REF) | payer MEDICARE, OTHER, SELFPAY ==
[2022-05-12 11:51] LABS: Alanine Aminotransferase 10 U/L (0-31); Anion Gap 14 (12-20); Aspartate Amino Transferase 14 U/L (5-31); Blood Urea Nitrogen 21 mg/dL (9-16); Calcium 9.3 mg/dL (8.4-10.2); Carbon Dioxide 26 mmol/L (22-29); Chloride 96 mmol/L (96-108); Cholesterol 151 mg/dL; Estimated Glomerular Filt Rate 45; Glucose Fasting 255 mg/dL (60-99); HDL Cholesterol 54 mg/dL; LDL Cholesterol Calculated 69 mg/dl; Potassium 5.1 mmol/L (3.3-5.1); Sodium 131 mmol/L (135-145); Triglycerides 143 mg/dL
[2022-05-12 11:54] LABS: B Type Natriuretic Peptide 355 pg/mL (<100)
[2022-05-12 12:13] LABS: Vitamin D 25-OH Total 47.4 ng/mL (>30)
== END 2022-05-12 09:14 | disposition home or self-care (01) ==
LOC: HO.HMGCLDS 09:13
PROVIDERS: Absent Provider Internal Medicine Endocrinology, Diabetes & Metabolism; PCP Internal Medicine; Visit Provider Internal Medicine
DX: E55.9 Vitamin D deficiency, unspecified (principal); E78.5 Hyperlipidemia, unspecified; E89.40 Asymptomatic postprocedural ovarian failure; I10 Essential (primary) hypertension; I25.2 Old myocardial infarction; Z86.73 Personal history of transient ischemic attack (TIA), and cerebral infarction without residual deficits; Z86.79 Personal history of other diseases of the circulatory system
CPT/HCPCS: 36415; 80048; 80061; 82306; 83880; 84450; 84460

== ENCOUNTER → 2022-05-29 13:45 | Outpatient (BNVA) | payer MEDICARE, OTHER, SELFPAY | PROVIDERS: PCP Internal Medicine; Referring Provider Internal Medicine; Visit Provider Internal Medicine | DX: I25.10 Atherosclerotic heart disease of native coronary artery without angina pectoris (principal); I35.0 Nonrheumatic aortic (valve) stenosis; I10 Essential (primary) hypertension; E78.5 Hyperlipidemia, unspecified; E11.9 Type 2 diabetes mellitus without complications; I25.2 Old myocardial infarction; Z86.73 Personal history of transient ischemic attack (TIA), and cerebral infarction without residual deficits; Z79.84 Long term (current) use of oral hypoglycemic drugs; Z79.899 Other long term (current) drug therapy; Z95.818 Presence of other cardiac implants and grafts | CPT/HCPCS: 99212 ==

== ENCOUNTER 2022-06-29 06:11 | Emergency (ER) | payer MEDICARE, OTHER, SELFPAY ==
--- NOTE | ~2022-06-29 | XR_ITS ---
EXAMINATION: XR CHEST CLINICAL INFORMATION: Status post code COMPARISON: Chest x-ray November 14, 2021 TECHNIQUE: Frontal view of the chest was obtained. FINDINGS: Cardiac silhouette is normal in size. Endotracheal tube terminates approximately 5.7 cm above the level the kerry. The lungs are adequately aerated. Prominence of the central pulmonary vasculature and interstitial markings diffusely. No gross lobar consolidation. No pleural effusion or pneumothorax. XR/XR chest 1V IMPRESSION: -Endotracheal tube in expected position. -Prominence of the central pulmonary vasculature and interstitial markings diffusely. Differential includes volume overload and diffuse infiltrate. Clinical correlation recommended.
[2022-06-29 07:07] LABS: Glucose, Whole Blood 459 mg/dL (60-115)
[2022-06-29 07:12] VITALS: BMI 29.3
[2022-06-29 07:59] LABS: Alanine Aminotransferase 196 U/L (0-31); Albumin Level 2.8 g/dL (3.5-5.0); Alkaline Phosphatase 54 U/L (39-117); Anion Gap 24 (12-20); Aspartate Amino Transferase 174 U/L (5-31); Bilirubin Total 0.3 mg/dL (0.0-1.0); Blood Urea Nitrogen 29 mg/dL (9-16); Carbon Dioxide 9 mmol/L (22-29); Chloride 103 mmol/L (96-108); Creatinine Clr Calc Pharmacy 23.8; Estimated Glomerular Filt Rate 28; Glucose Random 584 mg/dL (60-115); Lipase 50 U/L (8-78); Sodium 132 mmol/L (135-145); Total Protein 5.1 g/dL (6.5-8.0)
--- NOTE | 2022-06-29 09:27 | ED_ITS ---
HPI - CPR General Chief Complaint: Cardiac Arrest/CPR Stated Complaint: Resp Distress Time Seen by Provider: 06/29/22 06:27 Source: EMS Mode of arrival: EMS Limitations: no limitations History of Present Illness HPI narrative: 87-year-old female who was brought to the emergency department for evaluation of respiratory distress and cardiac arrest. According to paramedics they got a call for a patient was in respiratory distress. When they found the patient she was in severe respiratory distress with tachypnea. Patient was placed on oxygen and transported to the emergency department. The EMS personnel state that when they got to the parking lot the patient became unresponsive and lost her pulse. They started CPR and on presentation to the emergency department the patient was not breathing spontaneously, she had no pulse. Her initial rhythm was asystole. The patient was intubated, intraosseous line was established and the patient was given multiple rounds of epinephrine IV with ROSC. The patient again lost her pulse and went into cardiac arrest again she was given CPR and multiple rounds of epinephrine with achievement of ROSC. She was then started on Levophed. Unfortunately, the patient had a 3rd episode where she lost her pulse. Again we started CPR and given multiple episodes of epinephrine with no return of spontaneous circulation. Patient was therefore pronounced at 07:22. I did discuss the patient's presentation with 3 of her daughters and I informed them of the patient's . complaint: other (Respiratory distress, loss pulse and respiratory effort in the emergency department parking lot during transport) Onset (ago): hour(s) Timing confirmed by: other (EMS) Place: home Bystander CPR performed: Yes (Started by EMS during transport) AED applied by bystander/waiter/waitress first class: No Initial findings in the field: alert (In severe respiratory distress) ROSC in the field: No Associated injuries: No Associated symptoms: shortness of breath Known history of: CAD and LA (1 month prior with 3 stents placed) Treatments prior to arrival: chest compressions Related Data Home Medications Medication Instructions Recorded Confirmed blood sugar diagnostic #10 ea 02/13/21 05/29/22 cholecalciferol (vitamin D3) 25 25 mcg PO DAILY 09/06/21 05/29/22 mcg (1,000 unit) tablet (Vitamin D3) docusate sodium 100 mg capsule 100 mg PO BID 09/19/21 05/29/22 (Colace) glipizide 5 mg tablet, extended 10 mg PO DAILY 09/19/21 05/29/22 release 24 hr coenzyme Q10 10 mg capsule 10 mg PO DAILY 11/20/21 05/29/22 metoprolol succinate 50 mg 50 mg PO DAILY 02/19/22 05/29/22 tablet,extended release 24 hr baclofen 10 mg tablet 5 mg PO TID PRN muscle spasm 04/17/22 05/29/22 clopidogrel 75 mg tablet 75 mg PO DAILY 04/17/22 05/29/22 folic acid 1 mg tablet 1 mg PO DAILY 04/17/22 05/29/22 metformin 500 mg tablet 500 mg PO BID 04/17/22 05/29/22 amlodipine 5 mg tablet 5 mg PO DAILY 04/23/22 05/29/22 Previous Rx's Medication Instructions Recorded aspirin 81 mg capsule 81 mg PO DAILY #60 caps 09/09/21 nitroglycerin 0.4 mg sublingual 0.4 mg sublingual Q5M PRN chest 12/11/21 tablet pain #30 tabs ferrous fumarate 324 mg (106 mg 324 mg PO DAILY #30 tabs 04/17/22 iron) tablet furosemide 20 mg tablet 20 mg PO QAM #90 tabs 05/16/22 isosorbide mononitrate 30 mg 30 mg PO DAILY #90 tabs 05/16/22 tablet,extended release 24 hr alirocumab 75 mg/mL subcutaneous 75 mg subcut Q2W #2 mL 05/29/22 pen injector (Praluent Pen) Allergies Allergy/AdvReac Type Severity Reaction Status Date / Time regadenoson [From Compliance Assurance] AdvReac Severe brief Verified 05/29/22 13:50 second degree heart block type 2 lovastatin AdvReac Unknown muscle pain Verified 05/29/22 13:50 Review of Systems Review of Systems: Yes Unobtainable due to mental status PMFSH Past Medical History Medical History Acute ischemic right MCA stroke Anemia Cerebellar infarction Chest pain Dyslipidemia Embolic stroke Essential hypertension History of cerebellar stroke History of CVA (cerebrovascular accident) without residual deficits Hx of acute congestive heart failure Hx of non-ST elevation myocardial infarction (NSTEMI) Irritable bowel syndrome with constipation Ischemic stroke Moderate aortic stenosis Non-rheumatic aortic stenosis Surgical menopause Systolic ejection murmur Type 2 diabetes mellitus with peripheral neuropathy Vitamin D deficiency Surgical History History of appendectomy Hx of cataract surgery S/P partial hysterectomy Family History Family History Father No problems noted. Mother No problems noted. Social History Social History Household Members: None Housing: House Do you presently have visiting nurse or other home services: No Alcohol intake: never Patient Tobacco Use Status: Former Tobacco user Tobacco use type: Cigarette e-Cigarette/Vaping Use: Never Used Advance Directives: No Advance Directives Information Provided: No Advance Directives Date on File: 11/20/21 service: No Current occupational status: retired Cognitive needs: No Hearing needs: No Vision needs: No Physical Exam Vital Signs: Vital Signs: BMI result Body Mass Index 29.3 Const: Other: Female patient with a BMI of 29.4, not spontaneously bleeding, no pulse, CPR in progress, respirations deliver with bag-valve mask HEENT: Other: Head is normocephalic atraumatic, pupils were fixed and dilated, mouth did reveal blood coming from her mouth as well as loose damaged from teeth in her upper jaw Neck: Other: No evidence of trauma Chest: Other: No evidence of trauma Resp: Other: No spontaneous respirations, after intubation the patient had symmetric breath sounds with bag-valve Cardio: Other: No heart sounds on auscultation, no pulse GI: Other: Abdomen appears to be very distended, no bowel sounds Back/Spine/Pelvis: Other: No evidence of trauma Neuro: Other: No spontaneous movements, no spontaneous respiratory effort Extrem: Other: No trauma Course Course Course Narrative: 87-year-old female who was brought to the emergency department for evaluation of respiratory distress which came on hours prior to arrival who initially was found to be in respiratory distress by the paramedics but awake and alert, patient became unresponsive during transport and lost her respiratory drive and pulse. When she presented to the emergency department paramedics were doing CPR and providing respiration with the bag-valve mask. Patient's initial rhythm was asystole she had no pulses. Patient was intubated by me. A intraosseous line was placed by nursing staff. Patient was treated with epinephrine and CPR and had return of circulation, she lost her circulation had repeat CPR and epinephrine and again had a brief episode where she had a pulse and blood pressure. Patient had a 3rd episode where she lost her pulse and blood pressure and we were unable to resuscitate her despite CPR and epinephrine. I did discuss this with the patient's daughters. Case was also presented to the medical director/head team physician, Emiliano Ram and he declined the case. Case #[id number] MDM - Cardiac Arrest/CPR Lab Data Result diagrams: 06/29/22 07:16 Labs: Lab Results 06/29/22 06/29/22 Range/Units 06:18 07:16 Sodium 132 L (135-145) mmol/L Potassium 4.0 D (3.3-5.1) mmol/L Chloride 103 (96-108) mmol/L Carbon Dioxide 9 L* D (22-29) mmol/L Anion Gap 24 H (12-20) BUN 29 H (9-16) mg/dL Creatinine 1.71 H (0.5-1.4) mg/dL Estim Creat Clear Calc 23.8 Estimated GFR 28 POC Glucose 459 H* (60-115) mg/dL Random Glucose 584 H* D (60-115) mg/dL Calcium 8.0 L D (8.4-10.2) mg/dL Total Bilirubin 0.3 (0.0-1.0) mg/dL AST 174 H (5-31) U/L ALT 196 H (0-31) U/L Alkaline Phosphatase 54 (39-117) U/L Total Protein 5.1 L D (6.5-8.0) g/dL Albumin 2.8 L D (3.5-5.0) g/dL Lipase 50 (8-78) U/L Procedures Intubation Time out performed: No sedative: none Assist Device Used: fiber optic device ET Tube Size: 7.5 ET Tube Uncuffed: Yes Tube Secured Depth (cm): 22 Tube Secured Location: lips Tube Placement Confirmation: visualized tube passing through cords, equal breath sounds bilaterally and confirmation by capnometry Patient Tolerated Procedure: no complications Critical Care Time Critical Care Time Total Critical Care Time: 45 Attestation: Critical Care: The patient was critically ill with a high probability of imminent or life threatening deterioration. I spent greater than 30 minutes of discontinuous time evaluating the patient,delivering critical care at the [facility], discussing and evaluating pertinent data with consultants. Critical care time does not include time spent performing separately billable procedures or teaching. Total time spent performing critical care was 45 minutes. Discharge Plan Discharge Clinical Impression: Congestive heart disease, PEA (Pulseless electrical activity), Patient Disposition:
== END 2022-06-29 15:29 | disposition expired ==
PROVIDERS: Emergency Provider Emergency Medicine Emergency Medical Services; PCP Internal Medicine
DX: I50.9 Heart failure, unspecified; R06.02 Shortness of breath; Z79.899 Other long term (current) drug therapy
CPT/HCPCS: 31500; 71045; 80053; 82947; 83690; 99281; 99285; J0171